=== PATIENT | female | born 1945 | race Caucasian/White ===

== ENCOUNTER → 2016-12-25 | Outpatient (CLI) | payer OTHER ==
[2015-02-04 08:26] VITALS: BP 183/80
--- NOTE | 2016-12-27 10:11 | MG ---
Examination: Bilateral screening mammogram. Clinical history: Routine screening. Technique: Digital CC and MLO views of both breasts were obtained. Computer aided detection analysis was performed and used during the interpretation. Comparison: 10/05/2014. Findings: The breasts are composed of scattered fibroglandular densities. Benign-appearing calcifications and v ascular calcifications are noted in the breasts bilaterally. No suspicious mass, area of architectural distortion or suspicious cluster of microcalcifications is noted. Impression: 1. No mammographic evidence of malignancy. BI-RADS category 2-benign findings. Recommend routine annual screening mammogram. Diagnostic CAD was utilized and reviewed. * 0 (ZERO) - ASSESSMENT INCOMPLETE; ADDITIONAL IMAGING IS NEEDED. * 0C - ASSESSMENT INCOMPLETE, NEEDS ADDITIONAL IMAGING EVALUATION AND/OR PRIOR MAMMOGRAMS FOR COMPARI SON. * 1/1 (ONE) - NEGATIVE. * 2/II (TWO) - BENIGN FINDINGS. * 3/III (THREE) - PROBABLY BENIGN FINDING; SHORT INTERVAL FOLLOW-UP SUGGESTED. * 4/IV (FOUR) - SUSPICIOUS ABNORMALITY; BIOPSY SHOULD BE CONSIDERED. * 5/V - HIGHLY SUSPICIOUS OF MALIGNANCY; BIOPSY SHOULD BE PERFORMED. * 6/IV - KNOWN BIOPSY PROVEN MALIGNANCY-APPROPRIATE ACTION SHOULD BE TAKEN. A NEGATIVE X-RAY REPORT SHOULD NOT DELAY BIOPSY IF A DOMINANT OR CLINICALLY SUSPICIOUS MASS IS PRESENT; 4 TO 8 PERCENT OF CANCERS ARE NOT IDENTIFIED BY X-RAY. A NEGATIVE REPORT MAY REINFORCE THE CLINICAL IMPRESSION. ADENOSIS AND DENSE BREASTS MAY OBSCURE AN UNDERLYING NEOPLASM. Reported By:
== END ==
LOC: RAD 16:21
PROVIDERS: ATTEND Nurse Practitioner Family
DX: Z12.31 Encounter for screening mammogram for malignant neoplasm of breast (principal); Z00.00 Encounter for general adult medical examination without abnormal findings
CPT/HCPCS: 77067

== ENCOUNTER → 2017-01-15 | Outpatient (CLI) | payer OTHER ==
[2015-02-04 08:26] VITALS: BP 183/80
[2017-01-15 16:46] LABS: BILIRUBIN,URINE NEGATIVE (NEGATIVE); BLOOD/HEMOGLOBIN,URINE NEGATIVE (NEGATIVE); GLUCOSE, URINE NEGATIVE (NEGATIVE); KETONES,URINE NEGATIVE (NEGATIVE); LEUKOCYTE ESTERASE ,URINE NEGATIVE (NEGATIVE); NITRITES,URINE NEGATIVE (NEGATIVE); PROTEIN,URINE NEGATIVE (NEGATIVE); UROBILINOGEN,URINE NORMAL (NORMAL)
[2017-01-15 16:47] LABS: BASOPHILS % (AUTO) 0.6 % (0.2-1.0); EOSINOPHILS # (AUTO) 0.5 x10^3/uL (0.0-0.2); EOSINOPHILS % (AUTO) 6.6 % (0.9-2.9); HEMATOCRIT 36.9 % (36.0-47.0); HEMOGLOBIN 12.4 g/dL (12.0-16.0); LYMPHOCYTES # (AUTO) 1.9 X10^3/uL (1.3-2.9); LYMPHOCYTES % (AUTO) 26.8 % (21.0-51.0); MEAN CORPUSCULAR HGB CONC 33.7 g/dL (33.0-35.0); MEAN CORPUSCULAR VOLUME 89.2 fL (80.0-100.0); MEAN PLATELET VOLUME 9.5 fL (7.4-11.0); MONOCYTES # (AUTO) 0.5 x10^3/uL (0.3-0.8); MONOCYTES % (AUTO) 6.5 % (0.0-13.0); NEUTROPHILS # (AUTO) 4.3 x10^3/uL (2.2-4.8); NEUTROPHILS % (AUTO) 59.5 % (42.0-75.0); PLATELET COUNT 171 X10^3/uL (150.0-450.0); RED BLOOD COUNT 4.14 X10^6/uL (3.5-5.4); RED CELL DISTRIBUTION WIDTH 13.1 % (11.6-16.5); WHITE BLOOD COUNT 7.2 X10^3/uL (3.6-10.0)
[2017-01-15 17:03] LABS: ALANINE AMINOTRANSFERASE 27 Units/L (12-78); ALKALINE PHOSPHATASE 91 Units/L (46-116); ASPARTATE AMINO TRANSFERASE 41 Units/L (15-37); BLOOD UREA NITROGEN 22 mg/dL (7-18); CALCIUM 9.1 mg/dL (8.5-10.1); CARBON DIOXIDE 25.9 mmol/L (21-32); CHLORIDE 105 mmol/L (98-107); CREATININE 1.31 mg/dL (0.55-1.02); SODIUM 141 mmol/L (136-145); TOTAL PROTEIN 7.9 g/dL (6.4-8.2); eGFR BLACK RACES 52 (>60); eGFR NON BLACK RACES 43 (>60)
[2017-01-15 17:16] LABS: APPEARANCE,URINE CLEAR (CLEAR); BACTERIA,URINE NEGATIVE /HPF (NEGATIVE); COLOR,URINE YELLOW (YELLOW); RBC,URINE NEGATIVE /HPF (NEGATIVE); SQUAMOUS EPITHELIAL CELL,UR FEW /HPF (NEGATIVE)
[2017-01-15 17:27] LABS: ERYTHROCYTE SEDIMENTATION RATE 82 MM/HOUR (0-20)
== END ==
LOC: LAB 16:13
PROVIDERS: ATTEND Nurse Practitioner Family
DX: N95.1 Menopausal and female climacteric states (principal); M32.8 Other forms of systemic lupus erythematosus; D68.59 Other primary thrombophilia; R63.4 Abnormal weight loss; J43.1 Panlobular emphysema; G90.4 Autonomic dysreflexia
CPT/HCPCS: 36415; 80053; 81001; 85025; 85652; 86140; 86160; 86225; 86256

== ENCOUNTER → 2017-03-16 | Outpatient (CLI) | payer OTHER ==
[2015-02-04 08:26] VITALS: BP 183/80
--- NOTE | 2017-03-16 09:55 | CT ---
HISTORY: Low back pain. Bilateral flank pain. Status post fall 2 weeks prior. Study: Computed tomography of the abdomen and pelvis: Multiple axial images were obtained throughou t the abdomen and pelvis. Intravascular contrast was not administered. Oral contrast was not admini stered. Radiation dose reduction techniques utilized. Comparison: Acute abdominal series 1213 2016 Findings: The lung bases are clear. No evidence of pleural effusions, parenchymal infiltrates or pulmonary nod ules are identified. Very minimal scarring is noted. The heart size is normal. Minimal pericardial thickening or effusion is noted. A small hepatic granuloma is noted in the right lobe. No other focal lesions are identified. The ga llbladder is minimally distended. I see no calcified gallstones. No appreciable biliary duct dilata tion is noted. The pancreas is normal in its appearance. The spleen is normal in its appearance. M inimal thickening of the adrenal glands are noted. No discrete nodule is identified. The right kidn ey is normal in its appearance. The left kidney is normal in its appearance. Following the course o f the ureters I see no evidence of ureteral dilatation or ureteral calculi. Moderate atherosclerotic changes noted in the proximal abdominal aorta. No evidence of retroperitoneal lymph node enlargemen t is identified. [id number] atherosclerotic changes present in the common iliac arteries. The se patient status post hysterectomy. There is a small cyst in the right ovary measuring approximatel y 11 mm in maximum dimension. Periodic follow-up is recommended. No adnexal masses are identified. No evidence of pelvic adenopathy is identified. The urinary bladder is normal in its appearance. The stomach is normal in its appearance. The small bowel is non distended. No evidence of mesenteri c adenopathy is identified. The terminal ileum is normal. The appendix is normal in its appearance. A small to moderate amount of stool is noted in the ascending colon. The transverse colon is moder ately redundant. A few diverticula are present extending from the transverse colon. Scattered diver ticula present extending from the descending colon. Numerous diverticular extend from the sigmoid co zac. I see no evidence of diverticulitis. The region of the rectum is normal. No ascites is noted. The examination of the bone windows of demonstrates a grade 1 spondylolisthesis of L4 on L5. Minimal disc space narrowing is noted at L4/L5 and L5/S1. Minimal vacuum disc formation is noted at L1/L2. Mild anterior spurring is present at a few levels. Minimal degenerative changes present within the hips. IMPRESSION: 1. Diverticulosis without evidence of diverticulitis. 2. Mild distention of the gallbladder. I see no evidence of calcified gallstones or CT evidence of cholecystitis. If there is pain referable to the gallbladder, gallbladder ultrasound may be of lissy tance. 3. Small right ovarian cyst. Periodic follow-up is recommended. Reported By:
--- NOTE | 2017-03-16 11:43 | CT ---
LUMBAR SPINE CT WITHOUT IV CONTRAST CLINICAL INDICATION: Fall 2 weeks ago with back pain TECHNIQUE: Multiple-row detector helical CT examination of the lumbar spine. Axial, sagittal, and cor onal reconstructed images. Dose reduction techniques including Automated Exposure Control (AEC) and a djustment of mA and kV were utlized. COMPARISON: Same day CT abdomen pelvis which includes the lumbar spine. FINDINGS: Grade 1 anterolisthesis of L4 on L5 and L5 on S1 secondary to degenerative facet disease and possible partial pars defect on the left L5. No acute fractures. Vertebral body heights are maintained. No ag gressive osseous lesions are identified. Moderate multilevel degenerative disc disease particularly a t L4-5 and L5-S1. There is likely at least some mild central stenosis at L4-5 and L5-S1. IMPRESSION: 1. No acute abnormality of the lumbar spine. 2. Multilevel degenerative changes as detailed above. Reported By:
== END ==
LOC: RAD 08:33
PROVIDERS: ATTEND Nurse Practitioner Family
DX: M51.36 Other intervertebral disc degeneration, lumbar region (principal); R10.84 Generalized abdominal pain
CPT/HCPCS: 72131; 74176

== ENCOUNTER 2017-11-11 17:36 | Inpatient (IN) ==
[2017-11-11] MEDS ORDERED: NS 1000 ML 1,000 ML IV ONE (17:44)
[2017-11-11] MEDS ORDERED: NS 1000 ML 1,000 ML ONE ×2 (17:52→19:36)
--- NOTE | 2017-11-11 17:52 | DR.GENAD ---
HPI Time Seen Time Seen by Provider: 11/11/17 17:40 HPI Comment HPI Comment: General weakness, diarrhea with dark stool. Chronic SOB that is O2 dependent. She has no c/p or palpitations. She was seen here yesterday for same and was treated and released. Nurses notes reviewed Nurses Notes Review: Yes Source History Provided: Patient and Family Member PMH PMH Past Medical History: Anxiety and COPD Past Surgical History: Yes Surgical History: Hysterectomy Family History Family Medical History: [place], Coronary Artery Disease and Hypertension Social History Do you use any recreational Drugs:: No ROS Review of Systems Constitutional: Weakness Eyes: No Symptoms Reported ENTM: No Symptoms Reported Respiratoy: No Symptoms Reported Cardiovascular: No Symptoms Reported Gastrointestinal/Abdominal: Other (dark stool) Genitourinary: No Symptoms Reported Neurological: No Symptoms Reported Musculoskeletal: No Symptoms Reported Integumentary: No Symptoms Reported Hematologic/Lymphatic: No Symptoms Reported Endocrine: No Symptoms Reported Psychiatric: No Symptoms Reported All Other Systems: Reviewed and Negative PE Vital Signs Vitals: Temperature 98.4 F Pulse Rate [Left Brachial] 83 Pulse Rate 93 Respiratory Rate 18 Blood Pressure [Left Arm] 120/90 Blood Pressure [Right Arm] 115/76 Blood Pressure 138/65 O2 Sat by Pulse Oximetry 100 General Limitations: No Limitations General Appearance: Alert, Cachectic and Other (chronically ill appearing.) Head Head Exam: Normal Inspection, Atraumatic and Normocephalic Eyes Eye exam: Normal Appearance, PERRL and EOMI ENT ENT Exam: Normal Exam and Normal Oropharynx Neck Neck Exam: Normal Inspection, Full ROM and Trachea Midline Chest Chest Inspection: Normal Inspection and Symmetric Chest Wall Rise Respiratory Respiratory Exam: Normal Lung Sounds Bilat Cardiovascular Cardiovascular Exam: Regular Rate, Normal Rhythm, +S1 and +S2 Abdominal Exam Abdominal Exam: Normal Inspection, Normal Bowel Sounds and Soft Extremities Extremities Exam: Normal Inspection and Full ROM Back Back Exam: Normal Inspection Neurologic Neurological Exam: Alert Psychiatric Psychiatric Exam: Normal Affect and Normal Mood Skin Skin Exam: Warm and Dry COURSE Reevaluation 1st: Unchanged Consultation Consultation Comments: Her presentation, findings and diagnostics were discussed with Dr. Victor, who agrees with the request. Education/Counseling Education/Counseling: Patient, Family, Education and Counseling Educated On: Treatment, Diagnosis, Prognosis and Needs for Follow Up ROR Labs Reviewed Result Diagrams: 11/11/17 18:00 11/11/17 18:00 Laboratory: WBC 12.8 X10^3/uL (3.6-10.0) H 11/11/17 18:00 RBC 2.43 X10^6/uL (3.5-5.4) L 11/11/17 18:00 Hgb 7.5 g/dL (12.0-16.0) L 11/11/17 18:00 Hct 21.8 % (36.0-47.0) L 11/11/17 18:00 MCV 89.8 fL (80.0-100.0) 11/11/17 18:00 MCH 31.1 pg (27.0-34.0) 11/11/17 18:00 MCHC 34.6 g/dL (33.0-35.0) 11/11/17 18:00 RDW 13.3 % (11.6-16.5) 11/11/17 18:00 Plt Count 174 X10^3/uL (150.0-450.0) 11/11/17 18:00 Plt Count Comment Adequate (ADEQUATE) 11/11/17 18:00 MPV 9.6 fL (7.4-11.0) 11/11/17 18:00 Neut % (Auto) 82.5 % (42.0-75.0) H 11/11/17 18:00 Lymph % (Auto) 10.6 % (21.0-51.0) L 11/11/17 18:00 [place] % (Auto) 5.1 % (0.0-13.0) 11/11/17 18:00 Eos % (Auto) 0.9 % (0.9-2.9) 11/11/17 18:00 Baso % (Auto) 0.9 % (0.2-1.0) 11/11/17 18:00 Neut # (Auto) 10.5 x10^3/uL (2.2-4.8) H 11/11/17 18:00 Lymph # (Auto) 1.4 X10^3/uL (1.3-2.9) 11/11/17 18:00 [place] # (Auto) 0.6 x10^3/uL (0.3-0.8) 11/11/17 18:00 Eos # (Auto) 0.1 x10^3/uL (0.0-0.2) 11/11/17 18:00 Baso # (Auto) 0.1 X10^3/uL (0.0-0.1) 11/11/17 18:00 Absolute Nucleated RBC 0.0 /100WBC 11/11/17 18:00 Plt Morphology Comment Normal (NORMAL) 11/11/17 18:00 RBC Morphology Normal (NORMAL) 11/11/17 18:00 Sodium 142 mmol/L (136-145) 11/11/17 18:00 Corrected Sodium 143 mmol/L (136-145) 11/11/17 18:00 Potassium 4.2 mmol/L (3.5-5.1) 11/11/17 18:00 Chloride 108 mmol/L (98-107) H 11/11/17 18:00 Carbon Dioxide 25.0 mmol/L (21-32) 11/11/17 18:00 BUN 63 mg/dL (7-18) H 11/11/17 18:00 Creatinine 1.24 mg/dL (0.55-1.02) H 11/11/17 18:00 Est GFR (MDRD) Af Amer 55 (>60) L 11/11/17 18:00 Est GFR (MDRD) Non-Af 45 (>60) L 11/11/17 18:00 Glucose 147 mg/dL (65-99) H 11/11/17 18:00 Calcium 8.2 mg/dL (8.5-10.1) L 11/11/17 18:00 Corrected Calcium 8.8 mg/dL (8.5-10.1) 11/11/17 18:00 Total Bilirubin 0.20 mg/dL (0.2-1.0) 11/11/17 18:00 AST 25 Units/L (15-37) 11/11/17 18:00 ALT 23 Units/L (12-78) 11/11/17 18:00 Alkaline Phosphatase 49 Units/L (46-116) 11/11/17 18:00 Total Protein 6.3 g/dL (6.4-8.2) L 11/11/17 18:00 Albumin 3.2 g/dL (3.4-5.0) L 11/11/17 18:00 Globulin 3.1 g/dL (2.5-4.5) 11/11/17 18:00 Albumin/Globulin Ratio 1.0 Ratio (1.1-2.1) L 11/11/17 18:00 TSH 3rd Generation 1.468 uIU/mL (0.358-3.74) 11/11/17 18:00 Stool Description Fob tube 11/11/17 18:10 Stl Occult Blood (IFOB) Positive (NEGATIVE) A 11/11/17 18:10 XRAY XRAY Interpreted by: Radiologist XRAY Findings: Abdomen: no acute disease Diagnosis Discharge Problem: Hematochezia, Weakness, Anemia due to blood loss
[2017-11-11 18:07] LABS: BASOPHILS # (AUTO) 0.1 X10^3/uL (0.0-0.1); BASOPHILS % (AUTO) 0.9 % (0.2-1.0); EOSINOPHILS # (AUTO) 0.1 x10^3/uL (0.0-0.2); EOSINOPHILS % (AUTO) 0.9 % (0.9-2.9); HEMATOCRIT 21.8 % (36.0-47.0); HEMOGLOBIN 7.5 g/dL (12.0-16.0); LYMPHOCYTES # (AUTO) 1.4 X10^3/uL (1.3-2.9); LYMPHOCYTES % (AUTO) 10.6 % (21.0-51.0); MEAN CORPUSCULAR HEMOGLOBIN 31.1 pg (27.0-34.0); MEAN CORPUSCULAR HGB CONC 34.6 g/dL (33.0-35.0); MEAN CORPUSCULAR VOLUME 89.8 fL (80.0-100.0); MEAN PLATELET VOLUME 9.6 fL (7.4-11.0); MONOCYTES # (AUTO) 0.6 x10^3/uL (0.3-0.8); MONOCYTES % (AUTO) 5.1 % (0.0-13.0); NEUTROPHILS # (AUTO) 10.5 x10^3/uL (2.2-4.8); NEUTROPHILS % (AUTO) 82.5 % (42.0-75.0); PLATELET COUNT 174 X10^3/uL (150.0-450.0); RED BLOOD COUNT 2.43 X10^6/uL (3.5-5.4); RED CELL DISTRIBUTION WIDTH 13.3 % (11.6-16.5); WHITE BLOOD COUNT 12.8 X10^3/uL (3.6-10.0)
[2017-11-11 18:14] LABS: PLATELET MORPHOLOGY COMMENT NORMAL (NORMAL)
[2017-11-11 18:28] LABS: ALBUMIN 3.2 g/dL (3.4-5.0); CALCIUM 8.2 mg/dL (8.5-10.1); COR CA(FOR HYPOALB) 8.8 mg/dL (8.5-10.1); CREATININE 1.24 mg/dL (0.55-1.02); TOTAL PROTEIN 6.3 g/dL (6.4-8.2); TSH (3RD GENERATION) 1.468 uIU/mL (0.358-3.74)
[2017-11-11] MEDS ORDERED: NS 1000 ML 1,000 ML IV SCH (20:00)
[2017-11-11] MEDS: NS 1000 ML 1,000 ML IV SCH (20:35)
[2017-11-11 21:09] VITALS: BMI 21.2
[2017-11-11] MEDS ORDERED: NS 250 ML IV 250 ML IV ONE (23:09)
[2017-11-11] MEDS: NS 250 ML IV 250 ML IV SCH (23:15)
[2017-11-12] MEDS: NS 1000 ML 1,000 ML IV SCH ×4 (04:36→20:33)
[2017-11-12] MEDS ORDERED: PATIENT'S HOME MEDICATION (Fluticasone-Salmeterol 1 PUFF) INH SCH (09:00)
[2017-11-12] MEDS ORDERED: MAGNESIUM PO SCH (09:00)
[2017-11-12] MEDS ORDERED: SERTRALINE HCL 50 MG PO SCH (09:00)
[2017-11-12 09:04] LABS: BASOPHILS # (AUTO) 0.1 X10^3/uL (0.0-0.1); EOSINOPHILS # (AUTO) 0.2 x10^3/uL (0.0-0.2); HEMATOCRIT 23.6 % (36.0-47.0); HEMOGLOBIN 8.5 g/dL (12.0-16.0); LYMPHOCYTES % (AUTO) 22.2 % (21.0-51.0); MEAN CORPUSCULAR HEMOGLOBIN 31.3 pg (27.0-34.0); MEAN CORPUSCULAR HGB CONC 36.3 g/dL (33.0-35.0); MEAN CORPUSCULAR VOLUME 86.1 fL (80.0-100.0); MEAN PLATELET VOLUME 9.5 fL (7.4-11.0); MONOCYTES # (AUTO) 0.6 x10^3/uL (0.3-0.8); NEUTROPHILS # (AUTO) 6.2 x10^3/uL (2.2-4.8); NEUTROPHILS % (AUTO) 67.8 % (42.0-75.0); PLATELET COUNT 104 X10^3/uL (150.0-450.0); RED BLOOD COUNT 2.73 X10^6/uL (3.5-5.4); RED CELL DISTRIBUTION WIDTH 13.6 % (11.6-16.5); WHITE BLOOD COUNT 9.1 X10^3/uL (3.6-10.0)
[2017-11-12] MEDS: ZOLOFT PO SCH (09:22)
[2017-11-12] MEDS: MAG-OX TAB PO SCH (09:22)
[2017-11-12] MEDS: PROTONIX INJ 40 MG VIAL IVP SCH ×2 (09:23→20:33)
[2017-11-12 09:39] LABS: ALANINE AMINOTRANSFERASE 18 Units/L (12-78); ALBUMIN 2.5 g/dL (3.4-5.0); ALKALINE PHOSPHATASE 34 Units/L (46-116); ASPARTATE AMINO TRANSFERASE 23 Units/L (15-37); BLOOD UREA NITROGEN 54 mg/dL (7-18); CALCIUM 7.5 mg/dL (8.5-10.1); CARBON DIOXIDE 23.6 mmol/L (21-32); CHLORIDE 112 mmol/L (98-107); COR CA(FOR HYPOALB) 8.7 mg/dL (8.5-10.1); CREATININE 0.87 mg/dL (0.55-1.02); SODIUM 143 mmol/L (136-145); eGFR NON BLACK RACES > 60 (>60)
[2017-11-12] MEDS: NS 250 ML IV 250 ML IV SCH (12:38)
--- NOTE | 2017-11-12 13:08 | DR.H&P ---
H&P - History & Physical for Day of: H&P Date: 11/11/17 - Chief Complaint Chief Complaint: WEAKNESS, DIARRHEA, BLACK STOOL - History of Present Illness History of Present Illness: 72 WF ER ADMISSION AFTER PRESENTING CO SEVERE WEAKNESS, CO SEEN IN ER DAY PRIOR TO CO NAUSEA AND UPSET STOMACH, LOODSE BLACK STOOL. PT STATES SHE STARTED SUNDAY NIGHT WITH NAUSEA AND UPSET STOMACH, WORSENED OVER NEXT 2DAYS, INCREASED BACK TARRY STOOL. PT TAKES COUMADIN FOR HX BLOOD CLOTS, HAS LUPUS, HTN, OA, COPD WITH O2 USE. PT REPORTS HAS INR LESS THEN 3. PT STATES LAST COLONOSCOPY PER DR YOUNG 2-3 YEARS AGO. PT HBG 7.5 ON ADMISSION, PT ADMITTED TO ICU, TRANSFUSED 2 UNITS PRBC. - Past Medical History Past Medical History: Anxiety, Arthritis, Asthma, COPD Additional Medical History: LUPUS - Past Surgical History Surgical History: Hysterectomy, Tonsillectomy - Family History Family Medical History: Diabetes Mellitus, Cancer, [place], Coronary Artery Disease - Social History Does patient currently use any type of tobacco product: Yes Have you used tobacco products in the last 12 months: Yes Type of Tobacco Use: Cigarettes How many years tobacco product used: 30 Does any household member use tobacco: No Alcohol Use: None Drug Use: None - Medications Home Medications: egg Allergy (Verified 11/10/17 20:51) FLU VIRUS VACCINE Allergy (Uncoded 11/10/17 20:51) CONTINUE taking the following medications albuterol sulfate 1 puff INHALATION BID PRN 11/12/17 [History] bisoprolol-hydrochlorothiazide 1 tab PO DAILY 11/12/17 [History] hydrocodone-acetaminophen 1 tab PO QID PRN 11/12/17 [History] medroxyprogesterone 2.5 mg PO DAILY 11/12/17 [History] - Review of Systems Constitutional: Weakness Eyes: No Symptoms Reported ENT: No Symptoms Reported Respiratory: Shortness of Breath Cardiovascular: Palpitations. denies: Edema Gastrointestinal: Nausea, Abdominal Pain, Diarrhea, Hematochezia Genitourinary: No Symptoms Reported Skin: No Symptoms Reported Neurological: Weakness - Physical Exam Vital Signs: Temperature 98.2 F Pulse Rate [Apical] 82 Pulse Rate [Left Brachial] 83 Pulse Rate 93 Respiratory Rate 17 Blood Pressure [Left Arm] 120/90 Blood Pressure [Right Arm] 117/55 Blood Pressure 138/65 O2 Sat by Pulse Oximetry 100 Oriented: Normal Eyes: Normal Ear: Normal Nose: Normal Throat: Normal Respiratory: Diminished Throughout Cardiovascular: Normal : Normal Auscultation: Bowel Sounds: Increased Tenderness: Epigastric Skin: Decreased Turgur Musculoskeletal: Back:Thoracic Psychiatric: Anxiety Mood Description: Calm Affect: Anxious Speech Pattern: Clear, Appropriate - Assessment/Plan (1) Lower GI bleed Status: Acute Plan: ADMIT ICU, TRANSFUSE PRBC X 2. MONITOR I& OS, H&H. HOLD NSAIDS AND COUMADIN. BP MONITORING, SUPPLEMENTAL O2. 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
[2017-11-12] MEDS ORDERED: AQUA-MEPHYTON ADULT INJ SC ONE (13:14)
--- NOTE | 2017-11-12 13:14 | PCM.PROG ---
Progress Note - Progress Note for Day of Date of Exam: 11/12/17 - Subjective Subjective: 72 WF ER ADMISSION ON 11/11 WITH CO WEAKNESS, DIARRHEA, BLACK TARRY STOOL. PT WAS ANEMIA ON ARRIVAL TO ER WITH POSITIVE OCCULT STOOL, PT S/P 2 UNITS PRBC, HGB 8.5 THIS AM. PT STATES SHE STARTED TO FEEL BETTER AFTER GETTING BLOOD THIS AM. PT HAS COPD CURRENTLY ON SUPPLEMENTAL O2. PT/INR, UA, STOOL STUDIES ORDERED THIS AM. HOLDING NSAIDS, COUMADIN, CONSULT IRFAN, REVIEWED HOME MEDS, ICE CHIPS, PROTONIX 40MG IV BID. - Past Medical Family Social History Past Med/Fam/Surg Hx: No changes since H&P Allergies: Allergies egg Allergy (Verified 11/10/17 20:51) FLU VIRUS VACCINE Allergy (Uncoded 11/10/17 20:51) - Review of Systems ROS: No change since H&P - Vital Signs and I&O's Vital Signs: Temperature 98.2 F Pulse Rate [Apical] 82 Pulse Rate [Left Brachial] 83 Pulse Rate 93 Respiratory Rate 17 Blood Pressure [Left Arm] 120/90 Blood Pressure [Right Arm] 117/55 Blood Pressure 138/65 O2 Sat by Pulse Oximetry 100 Intake and Output: Intake & Output 11/10/17 11/11/17 11/12/17 11/13/17 11:59 11:59 11:59 11:59 Intake Total 1165 / 1165 1135 / 1135 Balance 1165 / 1165 1135 / 1135 - Physical Exam Oriented: Normal Eyes: Normal Ear: Normal Nose: Normal Throat: Normal Respiratory: Diminished Cardiovascular: Normal : Normal Auscultation: Bowel Sounds: Increased Tenderness: Epigastric Skin: Decreased Turgur Musculoskeletal: Back:Thoracic Psychiatric: Anxiety Mood Description: Calm Affect: Anxious Speech Pattern: Clear, Appropriate - Laboratory and Diagnostics Result Diagrams: 11/12/17 08:38 11/12/17 08:38 Labs: Laboratory WBC 9.1 X10^3/uL (3.6-10.0) 11/12/17 08:38 RBC 2.73 X10^6/uL (3.5-5.4) L 11/12/17 08:38 Hgb 8.5 g/dL (12.0-16.0) L 11/12/17 08:38 Hct 23.6 % (36.0-47.0) L 11/12/17 08:38 MCV 86.1 fL (80.0-100.0) 11/12/17 08:38 MCH 31.3 pg (27.0-34.0) 11/12/17 08:38 MCHC 36.3 g/dL (33.0-35.0) H 11/12/17 08:38 RDW 13.6 % (11.6-16.5) 11/12/17 08:38 Plt Count 104 X10^3/uL (150.0-450.0) L 11/12/17 08:38 Plt Count Comment Adequate (ADEQUATE) 11/11/17 18:00 MPV 9.5 fL (7.4-11.0) 11/12/17 08:38 Neut % (Auto) 67.8 % (42.0-75.0) 11/12/17 08:38 Lymph % (Auto) 22.2 % (21.0-51.0) 11/12/17 08:38 [place] % (Auto) 7.0 % (0.0-13.0) 11/12/17 08:38 Eos % (Auto) 2.0 % (0.9-2.9) 11/12/17 08:38 Baso % (Auto) 1.0 % (0.2-1.0) 11/12/17 08:38 Neut # (Auto) 6.2 x10^3/uL (2.2-4.8) H 11/12/17 08:38 Lymph # (Auto) 2.0 X10^3/uL (1.3-2.9) 11/12/17 08:38 [place] # (Auto) 0.6 x10^3/uL (0.3-0.8) 11/12/17 08:38 Eos # (Auto) 0.2 x10^3/uL (0.0-0.2) 11/12/17 08:38 Baso # (Auto) 0.1 X10^3/uL (0.0-0.1) 11/12/17 08:38 Absolute Nucleated RBC 0.0 /100WBC 11/12/17 08:38 Plt Morphology Comment Normal (NORMAL) 11/11/17 18:00 RBC Morphology Normal (NORMAL) 11/11/17 18:00 INR Target Range - 11/12/17 08:38 INR 3.75 (0.8-1.3) H 11/12/17 08:38 Sodium 143 mmol/L (136-145) 11/12/17 08:38 Corrected Sodium TNP 11/12/17 08:38 Potassium 3.9 mmol/L (3.5-5.1) 11/12/17 08:38 Chloride 112 mmol/L (98-107) H 11/12/17 08:38 Carbon Dioxide 23.6 mmol/L (21-32) 11/12/17 08:38 BUN 54 mg/dL (7-18) H 11/12/17 08:38 Creatinine 0.87 mg/dL (0.55-1.02) 11/12/17 08:38 Est GFR (MDRD) Af Amer > 60 (>60) 11/12/17 08:38 Est GFR (MDRD) Non-Af > 60 (>60) 11/12/17 08:38 Glucose 94 mg/dL (65-99) 11/12/17 08:38 Calcium 7.5 mg/dL (8.5-10.1) L 11/12/17 08:38 Corrected Calcium 8.7 mg/dL (8.5-10.1) 11/12/17 08:38 Total Bilirubin 0.50 mg/dL (0.2-1.0) 11/12/17 08:38 AST 23 Units/L (15-37) 11/12/17 08:38 ALT 18 Units/L (12-78) 11/12/17 08:38 Alkaline Phosphatase 34 Units/L (46-116) L 11/12/17 08:38 Total Protein 5.0 g/dL (6.4-8.2) L 11/12/17 08:38 Albumin 2.5 g/dL (3.4-5.0) L 11/12/17 08:38 Globulin 2.5 g/dL (2.5-4.5) 11/12/17 08:38 Albumin/Globulin Ratio 1.0 Ratio (1.1-2.1) L 11/12/17 08:38 TSH 3rd Generation 1.468 uIU/mL (0.358-3.74) 11/11/17 18:00 Stool Description Fob tube 11/11/17 18:10 Stl Occult Blood (IFOB) Positive (NEGATIVE) A 11/11/17 18:10 Blood Type B POSITIVE 11/11/17 20:55 Antibody Screen Negative 11/11/17 20:55 Crossmatch See Detail 11/11/17 20:55 - Plan (1) Lower GI bleed Status: Acute Plan: S/PTRANSFUSE PRBC X 2. MONITOR I& OS, H&H. HOLD NSAIDS AND COUMADIN, PT/ INR. BP MONITORING, SUPPLEMENTAL O2. RESP THERAPY, OCCULT STOOL STOOL STUDIES. CONSULT DR YOUNG, PROTONIX IV, FLAGYL IV. 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
[2017-11-12] MEDS: FLAGYL IV PREMIX 500 MG BAG 500 MG/100 ML BAG IV SCH ×3 (13:46→20:33)
[2017-11-12] MEDS: PROVERA PO SCH (13:51)
[2017-11-12] MEDS: FOLIC ACID TAB 1 MG PO SCH (13:51)
--- NOTE | 2017-11-12 13:52 | RAD ---
History: Shortness of breath and abdominal pain Study: Portable AP chest Comparison: February 04, 2015 Findings: The lungs are hyperinflated as before and grossly clear. There is no edema or effusion. Hea rt size is normal. Impression: Unchanged hyperinflation suggestive of COPD. No definite acute disease demonstrated. Reported By:
[2017-11-12] MEDS: PULMICORT NEB TX 0.5 MG NEB SCH ×2 (16:11→20:29)
[2017-11-12] MEDS: PROVENTIL NEB TX 0.083% 2.5MG/ 3ML NEB SCH ×3 (16:11→20:28)
[2017-11-12 16:45] LABS: CRYPTOSPORIDIUM PARVUM ANTIGEN POSITIVE (NEGATIVE); GIARDIA LAMBLIA ANTIGEN POSITIVE (NEGATIVE); STOOL FOR WBC POSITIVE (NEGATIVE)
--- NOTE | 2017-11-12 17:45 | DR.CONSULT ---
Consult - Consultation for Day of: Date: 11/12/17 - Chief Complaint Chief Complaint: Patient referred for hemoccult positive. Patient with complaints of melena, nausea, and diarrhea. - History of Present Illness History of Present Illness: Patient is a 72yo was referred for positive hemoccult. Patient with complaints of nausea which is improving stated she had broth and tolerated it well, She states she vomited on sunday but has not anymor e since, she has been having melena for 5 days and diarrhea since Sunday, she also states that she does have trouble swallowing at time but is a chronic problem. She denies dyspepsia, abdominal pain, constipation and hematochezia. Last colon was 12/2008 which showed sigmoid diverticulosis and internal hemorrhoids. Last EGD was 11/2008 which showed distal esophagitis and antral gastritis. Hgb on arrival was 7.5 after 2 untis of PRBC is up to 8.5, Hct 23.6 up from 21.8. Hemoccult positive. Patient is also on coumadin which was stopped yesterday. Stool studies are pending at this time. - Past Medical History Past Medical History: Anxiety, Arthritis, Asthma, COPD Additional Medical History: LUPUS - Past Surgical History Surgical History: Hysterectomy, Tonsillectomy - Family History Family Medical History: Diabetes Mellitus, Cancer, [place], Coronary Artery Disease - Social History Does patient currently use any type of tobacco product: Yes Have you used tobacco products in the last 12 months: Yes Type of Tobacco Use: Cigarettes How many years tobacco product used: 30 Does any household member use tobacco: No Alcohol Use: None Drug Use: None - Medications Home Medications: egg Allergy (Verified 11/10/17 20:51) FLU VIRUS VACCINE Allergy (Uncoded 11/10/17 20:51) CONTINUE taking the following medications albuterol sulfate 1 puff INHALATION BID PRN 11/12/17 [History] bisoprolol-hydrochlorothiazide 1 tab PO DAILY 11/12/17 [History] hydrocodone-acetaminophen 1 tab PO QID PRN 11/12/17 [History] medroxyprogesterone 2.5 mg PO DAILY 11/12/17 [History] - Review of Systems Gastrointestinal: See HPI, Nausea, Diarrhea, Melena, Other (dysphagia). denies: Vomiting, Abdominal Pain, Constipation, Hematochezia - Physical Exam Vital Signs: Temperature 97.4 F Pulse Rate [Apical] 94 Pulse Rate [Left Brachial] 83 Pulse Rate 92 Respiratory Rate 20 Blood Pressure [Left Arm] 120/90 Blood Pressure [Right Arm] 134/59 Blood Pressure 138/65 O2 Sat by Pulse Oximetry 100 Oriented: Time, Person, Place Eyes: Normal Ear: Normal Nose: Normal Throat: Normal Respiratory: Clear Throughout Cardiovascular: Normal : Normal Auscultation: Bowel Sounds: Normal Palpation: Normal, Other (no distention). negative: Spleen Enlarged, Liver Enlarged, Mass Pulsatile Tenderness: Normal (no tenderness on palpitation) Skin: Normal Musculoskeletal: Normal Psychiatric: Normal Mood Description: Calm Affect: Normal Speech Pattern: Clear, Appropriate - Plan Plan: Assessment. 1. Anemia, Hemoccult positive, Melena r/o gastric ulcer, gastric adenocarcinoma, upper GI Bleed. 2. Diarrhea. Plan. 1. Monitor Hgb, transfuse as needed, Cont protonix IV , EGD tomorrow. 2. Stool studies pending. Plan reviewed with Dr. Sandoval - Allergies Allergies/Adverse Reactions: Allergies Allergy/AdvReac Type Severity Reaction Status Date / Time egg Allergy Verified 11/10/17 20:51 FLU VIRUS VACCINE Allergy Uncoded 11/10/17 20:51
[2017-11-12] MEDS ORDERED: CONSULT PHARMACY - ANTIBIOTIC XX SCH (18:00)
[2017-11-12 18:21] LABS: BILIRUBIN,URINE NEGATIVE (NEGATIVE); BLOOD/HEMOGLOBIN,URINE NEGATIVE (NEGATIVE); GLUCOSE, URINE NEGATIVE (NEGATIVE); KETONES,URINE NEGATIVE (NEGATIVE); LEUKOCYTE ESTERASE ,URINE 1+ (NEGATIVE); NITRITES,URINE NEGATIVE (NEGATIVE); PROTEIN,URINE NEGATIVE (NEGATIVE); UROBILINOGEN,URINE NORMAL (NORMAL)
[2017-11-12 18:28] LABS: APPEARANCE,URINE CLEAR (CLEAR); BACTERIA,URINE TRACE /HPF (NEGATIVE); COLOR,URINE YELLOW (YELLOW); RBC,URINE 0-2 /HPF (NONE SEEN); SQUAMOUS EPITHELIAL CELL,UR FEW /HPF (NEGATIVE)
[2017-11-13] MEDS: NS 250 ML IV 250 ML IV SCH ×2 (01:39→14:38)
[2017-11-13] MEDS: FLAGYL IV PREMIX 500 MG BAG 500 MG/100 ML BAG IV SCH ×5 (03:18→14:37)
[2017-11-13] MEDS: NS 1000 ML 1,000 ML IV SCH ×3 (04:17→20:26)
[2017-11-13 05:07] LABS: BASOPHILS % (AUTO) 0.7 % (0.2-1.0); EOSINOPHILS # (AUTO) 0.3 x10^3/uL (0.0-0.2); LYMPHOCYTES # (AUTO) 1.6 X10^3/uL (1.3-2.9); LYMPHOCYTES % (AUTO) 24.6 % (21.0-51.0); MEAN CORPUSCULAR HEMOGLOBIN 30.5 pg (27.0-34.0); MEAN CORPUSCULAR HGB CONC 35.3 g/dL (33.0-35.0); MEAN CORPUSCULAR VOLUME 86.5 fL (80.0-100.0); MEAN PLATELET VOLUME 9.6 fL (7.4-11.0); MONOCYTES # (AUTO) 0.5 x10^3/uL (0.3-0.8); MONOCYTES % (AUTO) 8.1 % (0.0-13.0); NEUTROPHILS # (AUTO) 3.9 x10^3/uL (2.2-4.8); NEUTROPHILS % (AUTO) 61.6 % (42.0-75.0); PLATELET COUNT 109 X10^3/uL (150.0-450.0); RED BLOOD COUNT 2.04 X10^6/uL (3.5-5.4); RED CELL DISTRIBUTION WIDTH 13.9 % (11.6-16.5); WHITE BLOOD COUNT 6.4 X10^3/uL (3.6-10.0)
[2017-11-13 05:25] LABS: ALANINE AMINOTRANSFERASE 18 Units/L (12-78); ALBUMIN 2.2 g/dL (3.4-5.0); ALKALINE PHOSPHATASE 33 Units/L (46-116); ASPARTATE AMINO TRANSFERASE 27 Units/L (15-37); BLOOD UREA NITROGEN 38 mg/dL (7-18); CALCIUM 7.2 mg/dL (8.5-10.1); CARBON DIOXIDE 26.2 mmol/L (21-32); CHLORIDE 112 mmol/L (98-107); COR CA(FOR HYPOALB) 8.6 mg/dL (8.5-10.1); CREATININE 0.98 mg/dL (0.55-1.02); SODIUM 143 mmol/L (136-145); TOTAL PROTEIN 4.5 g/dL (6.4-8.2); eGFR NON BLACK RACES 59 (>60)
[2017-11-13 05:36] LABS: HEMATOCRIT 17.6 % (36.0-47.0); HEMOGLOBIN 6.2 g/dL (12.0-16.0)
[2017-11-13] MEDS: NS 500 ML IV 500 ML IV SCH (07:50)
[2017-11-13] MEDS: FOLIC ACID TAB 1 MG PO SCH (08:16)
[2017-11-13] MEDS: ZOLOFT PO SCH (08:16)
[2017-11-13] MEDS: PROVERA PO SCH (08:16)
[2017-11-13] MEDS: MAG-OX TAB PO SCH (08:16)
[2017-11-13] MEDS: PROVENTIL NEB TX 0.083% 2.5MG/ 3ML NEB SCH ×4 (08:50→20:59)
[2017-11-13] MEDS: PULMICORT NEB TX 0.5 MG NEB SCH ×2 (08:50→20:59)
[2017-11-13] MEDS ORDERED: MEDROXYPROGESTERONE 2.5 MG PO SCH (09:00)
[2017-11-13] MEDS ORDERED: PATIENT'S HOME MEDICATION (Folic Acid [Folic Acid] 1 TAB) PO SCH (09:00)
[2017-11-13] MEDS: PROTONIX INJ 40 MG VIAL IVP SCH ×2 (09:42→20:26)
--- NOTE | 2017-11-13 13:52 | PCM.PROG ---
Progress Note - Progress Note for Day of Date of Exam: 11/13/17 - Subjective Subjective: 72 WF ER ADMISSION ON 11/11 WITH CO WEAKNESS, DIARRHEA, BLACK TARRY STOOL. PT WAS ANEMIA ON ARRIVAL TO ER WITH POSITIVE OCCULT STOOL, PT S/P 2 UNITS PRBC, HGB 6.2THIS AM, REPEAT PRBC TRANSFUSION X 2 UNITS THIS AM. PT OCCULT STOOL POSITIVE, CURRENTLY ON PPI, INR ON 917 3.75 HAD VIT K 10MG IM YESTERDAY WITH REPEAT INR 2.68. PT. HOLDING NSAIDS, COUMADIN, CONSULT HANNAH, MAHADO FOR EGD THIS AM. PT STOOL POSITIVE FOR GIARDIA, CURRENTLY ON FLAGYL IV - Past Medical Family Social History Past Med/Fam/Surg Hx: No changes since H&P Allergies: Allergies egg Allergy (Verified 11/10/17 20:51) meperidine [From Demerol] Allergy (Verified 11/12/17 18:20) FLU VIRUS VACCINE Allergy (Uncoded 11/10/17 20:51) - Review of Systems ROS: No change since H&P - Vital Signs and I&O's Vital Signs: Temperature 98.5 F Pulse Rate [Apical] 90 Pulse Rate [Left Brachial] 83 Pulse Rate 88 Respiratory Rate 17 Blood Pressure [Left Arm] 120/90 Blood Pressure [Right Arm] 128/58 Blood Pressure 138/65 O2 Sat by Pulse Oximetry 100 Intake and Output: Intake & Output 11/11/17 11/12/17 11/13/17 11/14/17 11:59 11:59 11:59 11:59 Intake Total 1165 / 1165 2326 / 2326 939 / 939 Balance 1165 / 1165 2326 / 2326 939 / 939 - Physical Exam Oriented: Time, Person, Place Eyes: Normal Ear: Normal Nose: Normal Throat: Normal Respiratory: Diminished Cardiovascular: Normal : Normal Auscultation: Bowel Sounds: Normal Tenderness: Normal (no tenderness on palpitation) Skin: Normal Musculoskeletal: Normal Psychiatric: Normal Mood Description: Calm Affect: Normal Speech Pattern: Clear, Appropriate - Laboratory and Diagnostics Result Diagrams: 11/13/17 04:15 11/13/17 04:15 Labs: 11/12/17 15:16 Stool Stool Culture - Preliminary 11/12/17 15:16 Stool - Final Laboratory WBC 6.4 X10^3/uL (3.6-10.0) 11/13/17 04:15 RBC 2.04 X10^6/uL (3.5-5.4) L 11/13/17 04:15 Hgb 6.2 g/dL (12.0-16.0) L* D 11/13/17 04:15 Hct 17.6 % (36.0-47.0) L* 11/13/17 04:15 MCV 86.5 fL (80.0-100.0) 11/13/17 04:15 MCH 30.5 pg (27.0-34.0) 11/13/17 04:15 MCHC 35.3 g/dL (33.0-35.0) H 11/13/17 04:15 RDW 13.9 % (11.6-16.5) 11/13/17 04:15 Plt Count 109 X10^3/uL (150.0-450.0) L 11/13/17 04:15 Plt Count Comment Adequate (ADEQUATE) 11/11/17 18:00 MPV 9.6 fL (7.4-11.0) 11/13/17 04:15 Neut % (Auto) 61.6 % (42.0-75.0) 11/13/17 04:15 Lymph % (Auto) 24.6 % (21.0-51.0) 11/13/17 04:15 [place] % (Auto) 8.1 % (0.0-13.0) 11/13/17 04:15 Eos % (Auto) 5.0 % (0.9-2.9) H 11/13/17 04:15 Baso % (Auto) 0.7 % (0.2-1.0) 11/13/17 04:15 Neut # (Auto) 3.9 x10^3/uL (2.2-4.8) 11/13/17 04:15 Lymph # (Auto) 1.6 X10^3/uL (1.3-2.9) 11/13/17 04:15 [place] # (Auto) 0.5 x10^3/uL (0.3-0.8) 11/13/17 04:15 Eos # (Auto) 0.3 x10^3/uL (0.0-0.2) H 11/13/17 04:15 Baso # (Auto) 0.0 X10^3/uL (0.0-0.1) 11/13/17 04:15 Absolute Nucleated RBC 0.1 /100WBC 11/13/17 04:15 Plt Morphology Comment Normal (NORMAL) 11/11/17 18:00 RBC Morphology Normal (NORMAL) 11/11/17 18:00 INR Target Range - 11/13/17 04:15 INR 2.68 (0.8-1.3) H 11/13/17 04:15 Sodium 143 mmol/L (136-145) 11/13/17 04:15 Corrected Sodium TNP 11/13/17 04:15 Potassium 4.2 mmol/L (3.5-5.1) 11/13/17 04:15 Chloride 112 mmol/L (98-107) H 11/13/17 04:15 Carbon Dioxide 26.2 mmol/L (21-32) 11/13/17 04:15 BUN 38 mg/dL (7-18) H 11/13/17 04:15 Creatinine 0.98 mg/dL (0.55-1.02) 11/13/17 04:15 Est GFR (MDRD) Af Amer > 60 (>60) 11/13/17 04:15 Est GFR (MDRD) Non-Af 59 (>60) 11/13/17 04:15 Glucose 109 mg/dL (65-99) H 11/13/17 04:15 Calcium 7.2 mg/dL (8.5-10.1) L 11/13/17 04:15 Corrected Calcium 8.6 mg/dL (8.5-10.1) 11/13/17 04:15 Total Bilirubin 0.30 mg/dL (0.2-1.0) 11/13/17 04:15 AST 27 Units/L (15-37) 11/13/17 04:15 ALT 18 Units/L (12-78) 11/13/17 04:15 Alkaline Phosphatase 33 Units/L (46-116) L 11/13/17 04:15 Total Protein 4.5 g/dL (6.4-8.2) L 11/13/17 04:15 Albumin 2.2 g/dL (3.4-5.0) L 11/13/17 04:15 Globulin 2.3 g/dL (2.5-4.5) L 11/13/17 04:15 Albumin/Globulin Ratio 1.0 Ratio (1.1-2.1) L 11/13/17 04:15 TSH 3rd Generation 1.468 uIU/mL (0.358-3.74) 11/11/17 18:00 Specimen Type Random urine 11/12/17 18:07 Urine Color Yellow (YELLOW) 11/12/17 18:07 Urine Appearance Clear (CLEAR) 11/12/17 18:07 Urine pH 6.0 (5.0 - 8.0) 11/12/17 18:07 Ur Specific [place] 1.010 (1.000-1.030) 11/12/17 18:07 Urine Protein Negative (NEGATIVE) 11/12/17 18:07 Urine Glucose (UA) Negative (NEGATIVE) 11/12/17 18:07 Urine Ketones Negative (NEGATIVE) 11/12/17 18:07 Urine Occult Blood Negative (NEGATIVE) 11/12/17 18:07 Urine Nitrite Negative (NEGATIVE) 11/12/17 18:07 Urine Bilirubin Negative (NEGATIVE) 11/12/17 18:07 Urine Urobilinogen Normal (NORMAL) 11/12/17 18:07 Ur Leukocyte Esterase 1+ (NEGATIVE) 11/12/17 18:07 Urine RBC 0-2 /HPF (NONE SEEN) 11/12/17 18:07 Urine WBC 0-2 /HPF (NONE SEEN) 11/12/17 18:07 Ur Squamous Epith Cells Few /HPF (NEGATIVE) 11/12/17 18:07 Urine Bacteria Trace /HPF (NEGATIVE) 11/12/17 18:07 Ur Culture Indicated? No/not indicated 11/12/17 18:07 Stool Description 50g black liquid 11/12/17 15:16 Stl Occult Blood (IFOB) Positive (NEGATIVE) A 11/11/17 18:10 Stool for White Cells Positive (NEGATIVE) A 11/12/17 15:16 Stl C. diff Tox B Gene Negative (NEGATIVE) 11/12/17 15:16 Stl C. diff [id number] Negative (NEGATIVE) 11/12/17 15:16 Cryptosporid parvum Ag Positive (NEGATIVE) A 11/12/17 15:16 Giardia lamblia Ag Positive (NEGATIVE) A 11/12/17 15:16 Blood Type B POSITIVE 11/11/17 20:55 Antibody Screen Negative 11/11/17 20:55 Crossmatch See Detail 11/11/17 20:55 - Plan (1) Lower GI bleed Status: Acute Plan: S/P TRANSFUSE PRBC. MONITOR I& OS, H&H. HOLD NSAIDS AND COUMADIN, PT/ INR. BP MONITORING, SUPPLEMENTAL O2. RESP THERAPY, OCCULT STOOL +. CONSULT DR YOUNG, NPO FOR EGD THIS AM. PROTONIX IV, FLAGYL IV. 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
[2017-11-13] MEDS ORDERED: DIPRIVAN VIAL 20 ML ONE (14:07)
[2017-11-13 15:24] LABS: HEMATOCRIT 25.5 % (36.0-47.0)
[2017-11-13] MEDS ORDERED: BENADRYL INJ 50 MG VIAL IV ONE (16:46)
[2017-11-13] MEDS: FLAGYL TAB 500 MG PO SCH (20:24)
[2017-11-13] MEDS: NORCO 10/325 TAB PO PRN (20:25)
[2017-11-13] MEDS ORDERED: MYLICON TAB 80 MG CHEW PO PRN (23:10)
[2017-11-14] MEDS: FLAGYL TAB 500 MG PO SCH ×4 (02:41→21:21)
[2017-11-14] MEDS: NS 250 ML IV 250 ML IV SCH ×2 (02:41→16:56)
[2017-11-14] MEDS: NS 1000 ML 1,000 ML IV SCH ×3 (05:13→21:21)
[2017-11-14 05:31] LABS: ALANINE AMINOTRANSFERASE 19 Units/L (12-78); ALBUMIN 2.2 g/dL (3.4-5.0); ALKALINE PHOSPHATASE 38 Units/L (46-116); ASPARTATE AMINO TRANSFERASE 26 Units/L (15-37); BASOPHILS # (AUTO) 0.1 X10^3/uL (0.0-0.1); BASOPHILS % (AUTO) 2.7 % (0.2-1.0); BLOOD UREA NITROGEN 22 mg/dL (7-18); CHLORIDE 112 mmol/L (98-107); COR CA(FOR HYPOALB) 8.4 mg/dL (8.5-10.1); COR NA(FOR HYPERGLY) 143 mmol/L (136-145); CREATININE 1.01 mg/dL (0.55-1.02); EOSINOPHILS # (AUTO) 0.4 x10^3/uL (0.0-0.2); EOSINOPHILS % (AUTO) 7.8 % (0.9-2.9); HEMATOCRIT 24.6 % (36.0-47.0); HEMOGLOBIN 8.7 g/dL (12.0-16.0); LYMPHOCYTES % (AUTO) 18.1 % (21.0-51.0); MEAN CORPUSCULAR HEMOGLOBIN 30.4 pg (27.0-34.0); MEAN CORPUSCULAR HGB CONC 35.2 g/dL (33.0-35.0); MEAN CORPUSCULAR VOLUME 86.5 fL (80.0-100.0); MEAN PLATELET VOLUME 9.8 fL (7.4-11.0); MONOCYTES # (AUTO) 0.4 x10^3/uL (0.3-0.8); MONOCYTES % (AUTO) 7.1 % (0.0-13.0); NEUTROPHILS # (AUTO) 3.4 x10^3/uL (2.2-4.8); NEUTROPHILS % (AUTO) 64.3 % (42.0-75.0); PLATELET COUNT 97 X10^3/uL (150.0-450.0); RED BLOOD COUNT 2.85 X10^6/uL (3.5-5.4); RED CELL DISTRIBUTION WIDTH 14.9 % (11.6-16.5); SODIUM 143 mmol/L (136-145); TOTAL PROTEIN 4.4 g/dL (6.4-8.2); WHITE BLOOD COUNT 5.3 X10^3/uL (3.6-10.0); eGFR NON BLACK RACES 57 (>60)
[2017-11-14] MEDS: PROTONIX INJ 40 MG VIAL IVP SCH ×2 (08:31→21:21)
[2017-11-14] MEDS: PROVERA PO SCH (08:32)
[2017-11-14] MEDS: FOLIC ACID TAB 1 MG PO SCH (08:32)
[2017-11-14] MEDS: ZOLOFT PO SCH (08:32)
[2017-11-14] MEDS: MAG-OX TAB PO SCH (08:32)
[2017-11-14] MEDS: NS 500 ML IV 500 ML IV SCH (08:34)
[2017-11-14] MEDS: PROVENTIL NEB TX 0.083% 2.5MG/ 3ML NEB SCH ×4 (09:24→21:56)
[2017-11-14] MEDS: HEMOCYTE-PLUS PO SCH (09:25)
[2017-11-14] MEDS: PULMICORT NEB TX 0.5 MG NEB SCH ×2 (09:25→21:56)
[2017-11-14 14:04] LABS: BASOPHILS % (AUTO) 0.8 % (0.2-1.0); EOSINOPHILS # (AUTO) 0.3 x10^3/uL (0.0-0.2); EOSINOPHILS % (AUTO) 6.2 % (0.9-2.9); HEMATOCRIT 24.4 % (36.0-47.0); HEMOGLOBIN 8.6 g/dL (12.0-16.0); LYMPHOCYTES # (AUTO) 0.8 X10^3/uL (1.3-2.9); LYMPHOCYTES % (AUTO) 16.6 % (21.0-51.0); MEAN CORPUSCULAR HEMOGLOBIN 30.4 pg (27.0-34.0); MEAN CORPUSCULAR HGB CONC 35.1 g/dL (33.0-35.0); MEAN CORPUSCULAR VOLUME 86.6 fL (80.0-100.0); MEAN PLATELET VOLUME 8.7 fL (7.4-11.0); MONOCYTES # (AUTO) 0.3 x10^3/uL (0.3-0.8); MONOCYTES % (AUTO) 6.7 % (0.0-13.0); NEUTROPHILS # (AUTO) 3.4 x10^3/uL (2.2-4.8); NEUTROPHILS % (AUTO) 69.7 % (42.0-75.0); PLATELET COUNT 117 X10^3/uL (150.0-450.0); RED BLOOD COUNT 2.82 X10^6/uL (3.5-5.4); RED CELL DISTRIBUTION WIDTH 14.9 % (11.6-16.5); WHITE BLOOD COUNT 4.8 X10^3/uL (3.6-10.0)
--- NOTE | 2017-11-14 17:49 | PCM.PROG ---
Progress Note - Progress Note for Day of Date of Exam: 11/14/17 - Subjective Subjective: 72 WF ER ADMISSION ON 11/11 WITH CO WEAKNESS, DIARRHEA, BLACK TARRY STOOL. PT WAS ANEMIA ON ARRIVAL TO ER WITH POSITIVE OCCULT STOOL, PT S/P 4 UNITS PRBC, HGB 8.7 THIS AM, PT OCCULT STOOL POSITIVE, CURRENTLY ON PPI, INR. REPEAT AM CBC AND OCCULT STOOL. PT STATES SHE FEELS MUCH BETTER, ATE SAUSAGE BISCUIT THIS AM W/O NAUSEA. DISCUSSEE POSSIBLE DC HOME TOMORROW. HOLDING NSAIDS , COUMADIN, PT STOOL POSITIVE FOR GIARDIA, CURRENTLY ON FLAGYL IV. EGD PER DR YOUNG ON 11/13 SEE ENDO REPORT - Past Medical Family Social History Past Med/Fam/Surg Hx: No changes since H&P Allergies: Allergies egg Allergy (Verified 11/10/17 20:51) meperidine [From Demerol] Allergy (Verified 11/12/17 18:20) FLU VIRUS VACCINE Allergy (Uncoded 11/10/17 20:51) - Review of Systems ROS: No change since H&P - Vital Signs and I&O's Vital Signs: Temperature 99.8 F Pulse Rate [Apical] 101 Pulse Rate [Left Brachial] 83 Pulse Rate 100 Respiratory Rate 20 Blood Pressure [Left Arm] 120/90 Blood Pressure [Right Arm] 125/59 Blood Pressure 138/65 O2 Sat by Pulse Oximetry 100 Intake and Output: Intake & Output 11/12/17 11/13/17 11/14/17 11/15/17 11:59 11:59 11:59 11:59 Intake Total 1165 / 1165 2326 / 2326 2278 / 2278 485 / 485 Balance 1165 / 1165 2326 / 2326 2278 / 2278 485 / 485 - Physical Exam Oriented: Time, Person, Place Eyes: Normal Ear: Normal Nose: Normal Throat: Normal Respiratory: Diminished Cardiovascular: Normal : Normal Auscultation: Bowel Sounds: Normal Tenderness: Normal (no tenderness on palpitation) Skin: Normal Musculoskeletal: Normal Psychiatric: Normal Mood Description: Calm Affect: Normal Speech Pattern: Clear, Appropriate - Laboratory and Diagnostics Result Diagrams: 11/14/17 13:49 11/14/17 04:30 Labs: 11/12/17 15:16 Stool Stool Culture - Final 11/12/17 15:16 Stool - Final Laboratory WBC 4.8 X10^3/uL (3.6-10.0) 11/14/17 13:49 RBC 2.82 X10^6/uL (3.5-5.4) L 11/14/17 13:49 Hgb 8.6 g/dL (12.0-16.0) L 11/14/17 13:49 Hct 24.4 % (36.0-47.0) L 11/14/17 13:49 MCV 86.6 fL (80.0-100.0) 11/14/17 13:49 MCH 30.4 pg (27.0-34.0) 11/14/17 13:49 MCHC 35.1 g/dL (33.0-35.0) H 11/14/17 13:49 RDW 14.9 % (11.6-16.5) 11/14/17 13:49 Plt Count 117 X10^3/uL (150.0-450.0) L 11/14/17 13:49 Plt Count Comment Adequate (ADEQUATE) 11/11/17 18:00 MPV 8.7 fL (7.4-11.0) 11/14/17 13:49 Neut % (Auto) 69.7 % (42.0-75.0) 11/14/17 13:49 Lymph % (Auto) 16.6 % (21.0-51.0) L 11/14/17 13:49 [place] % (Auto) 6.7 % (0.0-13.0) 11/14/17 13:49 Eos % (Auto) 6.2 % (0.9-2.9) H 11/14/17 13:49 Baso % (Auto) 0.8 % (0.2-1.0) 11/14/17 13:49 Neut # (Auto) 3.4 x10^3/uL (2.2-4.8) 11/14/17 13:49 Lymph # (Auto) 0.8 X10^3/uL (1.3-2.9) L 11/14/17 13:49 Day # (Auto) 0.3 x10^3/uL (0.3-0.8) 11/14/17 13:49 Eos # (Auto) 0.3 x10^3/uL (0.0-0.2) H 11/14/17 13:49 Baso # (Auto) 0.0 X10^3/uL (0.0-0.1) 11/14/17 13:49 Absolute Nucleated RBC 0.0 /100WBC 11/14/17 13:49 Plt Morphology Comment Normal (NORMAL) 11/11/17 18:00 RBC Morphology Normal (NORMAL) 11/11/17 18:00 INR Target Range - 11/14/17 04:30 INR 1.20 (0.8-1.3) 11/14/17 04:30 Sodium 143 mmol/L (136-145) 11/14/17 04:30 Corrected Sodium 143 mmol/L (136-145) 11/14/17 04:30 Potassium 3.6 mmol/L (3.5-5.1) 11/14/17 04:30 Chloride 112 mmol/L (98-107) H 11/14/17 04:30 Carbon Dioxide 24.0 mmol/L (21-32) 11/14/17 04:30 BUN 22 mg/dL (7-18) H 11/14/17 04:30 Creatinine 1.01 mg/dL (0.55-1.02) 11/14/17 04:30 Est GFR (MDRD) Af Amer > 60 (>60) 11/14/17 04:30 Est GFR (MDRD) Non-Af 57 (>60) L 11/14/17 04:30 Glucose 118 mg/dL (65-99) H 11/14/17 04:30 Calcium 7.0 mg/dL (8.5-10.1) L 11/14/17 04:30 Corrected Calcium 8.4 mg/dL (8.5-10.1) L 11/14/17 04:30 Total Bilirubin 0.40 mg/dL (0.2-1.0) 11/14/17 04:30 AST 26 Units/L (15-37) 11/14/17 04:30 ALT 19 Units/L (12-78) 11/14/17 04:30 Alkaline Phosphatase 38 Units/L (46-116) L 11/14/17 04:30 Total Protein 4.4 g/dL (6.4-8.2) L 11/14/17 04:30 Albumin 2.2 g/dL (3.4-5.0) L 11/14/17 04:30 Globulin 2.2 g/dL (2.5-4.5) L 11/14/17 04:30 Albumin/Globulin Ratio 1.0 Ratio (1.1-2.1) L 11/14/17 04:30 TSH 3rd Generation 1.468 uIU/mL (0.358-3.74) 11/11/17 18:00 Specimen Type Random urine 11/12/17 18:07 Urine Color Yellow (YELLOW) 11/12/17 18:07 Urine Appearance Clear (CLEAR) 11/12/17 18:07 Urine pH 6.0 (5.0 - 8.0) 11/12/17 18:07 Ur Specific [place] 1.010 (1.000-1.030) 11/12/17 18:07 Urine Protein Negative (NEGATIVE) 11/12/17 18:07 Urine Glucose (UA) Negative (NEGATIVE) 11/12/17 18:07 Urine Ketones Negative (NEGATIVE) 11/12/17 18:07 Urine Occult Blood Negative (NEGATIVE) 11/12/17 18:07 Urine Nitrite Negative (NEGATIVE) 11/12/17 18:07 Urine Bilirubin Negative (NEGATIVE) 11/12/17 18:07 Urine Urobilinogen Normal (NORMAL) 11/12/17 18:07 Ur Leukocyte Esterase 1+ (NEGATIVE) 11/12/17 18:07 Urine RBC 0-2 /HPF (NONE SEEN) 11/12/17 18:07 Urine WBC 0-2 /HPF (NONE SEEN) 11/12/17 18:07 Ur Squamous Epith Cells Few /HPF (NEGATIVE) 11/12/17 18:07 Urine Bacteria Trace /HPF (NEGATIVE) 11/12/17 18:07 Ur Culture Indicated? No/not indicated 11/12/17 18:07 Stool Description 50g black liquid 11/12/17 15:16 Stl Occult Blood (IFOB) Positive (NEGATIVE) A 11/11/17 18:10 Stool for White Cells Positive (NEGATIVE) A 11/12/17 15:16 Stl C. diff Tox B Gene Negative (NEGATIVE) 11/12/17 15:16 Stl C. diff [id number] Negative (NEGATIVE) 11/12/17 15:16 Cryptosporid parvum Ag Positive (NEGATIVE) A 11/12/17 15:16 Giardia lamblia Ag Positive (NEGATIVE) A 11/12/17 15:16 Tissue Pathology To follow 11/13/17 14:23 Blood Type B POSITIVE 11/11/17 20:55 Antibody Screen Negative 11/11/17 20:55 Crossmatch See Detail 11/11/17 20:55 - Plan (1) Lower GI bleed Status: Acute Plan: S/P TRANSFUSE PRBC. MONITOR I& OS, H&H. HOLD NSAIDS AND COUMADIN, PT/ INR. BP MONITORING, SUPPLEMENTAL O2. RESP THERAPY, OCCULT STOOL +. CONSULT DR YOUNG, EGD PERFORMED ON 11/13. PROTONIX IV, FLAGYL IV. 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
[2017-11-14] MEDS: NORCO 10/325 TAB PO PRN (21:21)
[2017-11-15] MEDS: NORCO 10/325 TAB PO PRN (03:18)
[2017-11-15] MEDS: FLAGYL TAB 500 MG PO SCH ×3 (03:18→14:38)
[2017-11-15] MEDS: NS 1000 ML 1,000 ML IV SCH ×2 (04:18→11:49)
[2017-11-15 05:14] LABS: EOSINOPHILS # (AUTO) 0.4 x10^3/uL (0.0-0.2); EOSINOPHILS % (AUTO) 8.7 % (0.9-2.9); HEMATOCRIT 23.4 % (36.0-47.0); HEMOGLOBIN 8.5 g/dL (12.0-16.0); LYMPHOCYTES # (AUTO) 0.9 X10^3/uL (1.3-2.9); MEAN CORPUSCULAR HEMOGLOBIN 30.8 pg (27.0-34.0); MEAN CORPUSCULAR HGB CONC 36.2 g/dL (33.0-35.0); MEAN PLATELET VOLUME 8.6 fL (7.4-11.0); MONOCYTES # (AUTO) 0.5 x10^3/uL (0.3-0.8); MONOCYTES % (AUTO) 10.7 % (0.0-13.0); NEUTROPHILS # (AUTO) 2.6 x10^3/uL (2.2-4.8); NEUTROPHILS % (AUTO) 59.6 % (42.0-75.0); PLATELET COUNT 129 X10^3/uL (150.0-450.0); RED BLOOD COUNT 2.75 X10^6/uL (3.5-5.4); RED CELL DISTRIBUTION WIDTH 14.6 % (11.6-16.5); WHITE BLOOD COUNT 4.4 X10^3/uL (3.6-10.0)
[2017-11-15 05:34] LABS: ALANINE AMINOTRANSFERASE 19 Units/L (12-78); ALBUMIN 2.3 g/dL (3.4-5.0); ALKALINE PHOSPHATASE 39 Units/L (46-116); ASPARTATE AMINO TRANSFERASE 24 Units/L (15-37); BLOOD UREA NITROGEN 11 mg/dL (7-18); CALCIUM 7.2 mg/dL (8.5-10.1); CARBON DIOXIDE 25.7 mmol/L (21-32); CHLORIDE 109 mmol/L (98-107); COR CA(FOR HYPOALB) 8.6 mg/dL (8.5-10.1); CREATININE 0.98 mg/dL (0.55-1.02); SODIUM 141 mmol/L (136-145); TOTAL PROTEIN 4.7 g/dL (6.4-8.2); eGFR NON BLACK RACES 59 (>60)
[2017-11-15] MEDS: NS 250 ML IV 250 ML IV SCH (06:30)
[2017-11-15] MEDS: NS 500 ML IV 500 ML IV SCH (07:15)
[2017-11-15] MEDS: PROTONIX INJ 40 MG VIAL IVP SCH (08:20)
[2017-11-15] MEDS: HEMOCYTE-PLUS PO SCH (08:21)
[2017-11-15] MEDS: FOLIC ACID TAB 1 MG PO SCH (08:21)
[2017-11-15] MEDS: PROVERA PO SCH (08:21)
[2017-11-15] MEDS: ZOLOFT PO SCH (08:21)
[2017-11-15] MEDS: MAG-OX TAB PO SCH (08:21)
[2017-11-15] MEDS: PROVENTIL NEB TX 0.083% 2.5MG/ 3ML NEB SCH ×2 (09:18→12:34)
[2017-11-15] MEDS: PULMICORT NEB TX 0.5 MG NEB SCH (09:18)
[2017-11-15 12:06] VITALS: BP 97/55
== END 2017-11-15 14:45 | disposition home or self-care (01) | DRG 378 ==
LOC: ICU 17:36 → ER 17:36 → ICU 20:02
PROVIDERS: ADMIT Obstetrics & Gynecology Obstetrics; ATTEND Internal Medicine
DX: K22.6 Gastro-esophageal laceration-hemorrhage syndrome; F41.8 Other specified anxiety disorders; R10.13 Epigastric pain; K21.9 Gastro-esophageal reflux disease without esophagitis; K25.3 Acute gastric ulcer without hemorrhage or perforation; R53.1 Weakness; R79.89 Other specified abnormal findings of blood chemistry; A07.2 Cryptosporidiosis; D50.0 Iron deficiency anemia secondary to blood loss (chronic); Z79.01 Long term (current) use of anticoagulants; A07.1 Giardiasis [lambliasis]; M32.8 Other forms of systemic lupus erythematosus; K92.1 Melena; E86.0 Dehydration; R06.02 Shortness of breath; R11.2 Nausea with vomiting, unspecified; K25.9 Gastric ulcer, unspecified as acute or chronic, without hemorrhage or perforation
CPT/HCPCS: 36415; 36430; 71010; 71045; 74022; 74176; 80053; 81001; 82270; 83630; 84443; 85014; 85018; 85025; 85610; 86140; 86677; 86850; 86900; 86901; 86922; 87045; 87328; 87329; 87427; 87449; 87493; 87899; 88305; 93005; 93010; 94640; 96365; 96367; 99100; 99282; 99283; 99284; A4222; C9113; P9016; S0030; A4217; G0378; J1200; J2704; J3430; J7030; J7040; J7050; J7613; J7626

== ENCOUNTER 2017-11-21 14:45 | Observation (INO) ==
[2017-11-21] MEDS ORDERED: FLAGYL IV PREMIX 500 MG BAG 500 MG/100 ML BAG IV SCH (16:00)
[2017-11-21] MEDS ORDERED: ZOFRAN INJ 4 MG VIAL IVP PRN (16:18)
--- NOTE | 2017-11-21 16:22 | DR.H&P ---
H&P - History & Physical for Day of: H&P Date: 11/21/17 - Chief Complaint Chief Complaint: severely sob - History of Present Illness History of Present Illness: 72 WF DIRECT ADMIT FROM DR RICHARDS OFFICE WITH CO SEVERE SOB, WEAKNESS, CANNOT WALK TO BATHROOM WITHOUT FEELING LIKE SHE WAS GOING TO FAINT. PT CO BLACK LOOSE TARRY STOOL. PT HAD LOW GRADE TEMP 100, THIS AM. PT WAS IN HOSPITAL ONE WEEK AGO WITH INFECTIOUS COLITIS AND ANEMIA. PT WAS SEEN ON SUNDAY FOR REPEAT CBC , HGB 8.7 AND PT STATES SHE FELT OK AT THAT TIME. BECAME MORE WEAK AND SOB SUNDAY NIGHT. PT CO PALPITATIONS AND NAUSEA. PT HAS PMH OF HTN, COPD, LUPUS, OA. PT ADMITTED TO [facility] FOR TREATMENT AND EVALUATION OF ACUTE ILLNESS - Past Medical History Past Medical History: Anxiety, Arthritis, Asthma, COPD, GERD, Hypertension Additional Medical History: LUPUS - Past Surgical History Surgical History: Hysterectomy, Tonsillectomy - Family History Family Medical History: Diabetes Mellitus, Cancer, [place], Coronary Artery Disease - Social History Does patient currently use any type of tobacco product: Yes Have you used tobacco products in the last 12 months: Yes Type of Tobacco Use: Cigarettes Does any household member use tobacco: No Alcohol Use: None Drug Use: None - Medications Home Medications: egg Allergy (Verified 11/10/17 20:51) meperidine [From Demerol] Allergy (Verified 11/12/17 18:20) FLU VIRUS VACCINE Allergy (Uncoded 11/10/17 20:51) - Review of Systems Constitutional: Fever, Weakness ENT: No Symptoms Reported Respiratory: Shortness of Breath, SOB with Excertion, Wheezing Cardiovascular: Edema, Light Headedness Gastrointestinal: Nausea, Melena Genitourinary: No Symptoms Reported Musculoskeletal: Back Pain Skin: No Symptoms Reported Neurological: Weakness - Physical Exam Vital Signs: Blood Pressure [Left Arm] 120/90 Blood Pressure [Right Arm] 97/55 Blood Pressure 97/55 Oriented: Normal Eyes: Normal Ear: Normal Nose: Normal Throat: Normal Respiratory: Diminished Throughout Cardiovascular: Tachycardia, Edema (BILATERAL TRACE EDEMA) : Normal Auscultation: Bowel Sounds: Increased Tenderness: Diffuse, Mild Skin: Decreased Turgur Musculoskeletal: Back:Lumbar Psychiatric: Anxiety Affect: Anxious Speech Pattern: Clear, Appropriate - Assessment/Plan (1) SOB (shortness of breath) Status: Acute Plan: ADMIT, ABG ON ADMISSION. CXR, RESP THERAPY, SUPPLEMENTAL O2. IV FLAGYL DUE TO GIARDIA INFECTION, PPI THERAPY. CBC CMP ANEMIA PANEL OCCULT STOOL. UA, TYPE AND SCREEN (2) COPD exacerbation Status: Acute (3) Hypertension Status: Chronic (4) GERD (gastroesophageal reflux disease) Status: Chronic (5) Anemia due to blood loss Status: Acute (6) Lupus Status: Acute - Allergies Allergies/Adverse Reactions: Allergies Allergy/AdvReac Type Severity Reaction Status Date / Time egg Allergy Verified 11/10/17 20:51 meperidine [From Demerol] Allergy Verified 11/12/17 18:20 FLU VIRUS VACCINE Allergy Uncoded 11/10/17 20:51
[2017-11-21 17:08] LABS: BASOPHILS # (AUTO) 0.1 X10^3/uL (0.0-0.1); BASOPHILS % (AUTO) 2.1 % (0.2-1.0); EOSINOPHILS # (AUTO) 0.2 x10^3/uL (0.0-0.2); EOSINOPHILS % (AUTO) 3.3 % (0.9-2.9); HEMATOCRIT 27.5 % (36.0-47.0); HEMOGLOBIN 9.5 g/dL (12.0-16.0); LYMPHOCYTES # (AUTO) 1.3 X10^3/uL (1.3-2.9); LYMPHOCYTES % (AUTO) 19.8 % (21.0-51.0); MEAN CORPUSCULAR HEMOGLOBIN 30.6 pg (27.0-34.0); MEAN CORPUSCULAR HGB CONC 34.5 g/dL (33.0-35.0); MEAN CORPUSCULAR VOLUME 88.6 fL (80.0-100.0); MEAN PLATELET VOLUME 8.6 fL (7.4-11.0); MONOCYTES # (AUTO) 0.5 x10^3/uL (0.3-0.8); MONOCYTES % (AUTO) 7.4 % (0.0-13.0); NEUTROPHILS # (AUTO) 4.3 x10^3/uL (2.2-4.8); NEUTROPHILS % (AUTO) 67.4 % (42.0-75.0); PLATELET COUNT 254 X10^3/uL (150.0-450.0); RED BLOOD COUNT 3.11 X10^6/uL (3.5-5.4); RED CELL DISTRIBUTION WIDTH 15.3 % (11.6-16.5); WHITE BLOOD COUNT 6.4 X10^3/uL (3.6-10.0)
[2017-11-21 17:18] LABS: ALANINE AMINOTRANSFERASE 61 Units/L (12-78); ALKALINE PHOSPHATASE 50 Units/L (46-116); ASPARTATE AMINO TRANSFERASE 58 Units/L (15-37); BLOOD UREA NITROGEN 16 mg/dL (7-18); CALCIUM 8.3 mg/dL (8.5-10.1); CARBON DIOXIDE 28.1 mmol/L (21-32); CHLORIDE 107 mmol/L (98-107); COR CA(FOR HYPOALB) 9.1 mg/dL (8.5-10.1); COR NA(FOR HYPERGLY) 143 mmol/L (136-145); CREATININE 1.38 mg/dL (0.55-1.02); SODIUM 143 mmol/L (136-145); eGFR NON BLACK RACES 40 (>60)
[2017-11-21] MEDS ORDERED: XOPENEX 1.25 MG/3 ML NEBULE NEB ONE (17:34)
[2017-11-21] MEDS: XOPENEX 1.25 MG/3 ML NEBULE NEB SCH ×2 (17:35→20:58)
[2017-11-21] MEDS: PROTONIX INJ 40 MG VIAL IVP SCH ×2 (17:36→20:59)
[2017-11-21] MEDS: NS 1000 ML 1,000 ML IV SCH (17:36)
[2017-11-21] MEDS: FLAGYL TAB 500 MG PO SCH ×2 (17:36→20:59)
[2017-11-21 17:45] LABS: ABG BASE EXCESS 4.1 mmol/L (-2.0-2.0); ABG HCO3 28.5 mmol/L (22-26); FRACTIONATED INSPIRED OXYGEN 21
[2017-11-21 17:47] VITALS: BMI 22.6
[2017-11-21] MEDS: PULMICORT NEB TX 0.5 MG NEB SCH ×2 (17:49→20:58)
[2017-11-21 17:52] LABS: IRON 68 ug/dL (50-175)
[2017-11-21] MEDS ORDERED: SALINE 3% 15 ML NEB TX ONE (17:56)
[2017-11-21] MEDS ORDERED: SALINE 3% 15 ML NEB TX NEB ONE (17:59)
--- NOTE | 2017-11-21 17:59 | RAD ---
HISTORY: Shortness of breath Study: Single view of the chest. Comparison: None. Findings: The cardiomediastinal silhouette is normal. No focal consolidations, pleural effusions or pneumothora x. Osseous structures demonstrate no acute abnormality. IMPRESSION: 1. No acute cardiopulmonary process. Reported By:
[2017-11-21 20:17] LABS: BILIRUBIN,URINE NEGATIVE (NEGATIVE); BLOOD/HEMOGLOBIN,URINE NEGATIVE (NEGATIVE); GLUCOSE, URINE NEGATIVE (NEGATIVE); KETONES,URINE NEGATIVE (NEGATIVE); LEUKOCYTE ESTERASE ,URINE 1+ (NEGATIVE); NITRITES,URINE NEGATIVE (NEGATIVE); PROTEIN,URINE NEGATIVE (NEGATIVE); UROBILINOGEN,URINE NORMAL (NORMAL)
[2017-11-21 20:24] LABS: APPEARANCE,URINE SLIGHTLY HAZY (CLEAR); BACTERIA,URINE TRACE /HPF (NEGATIVE); COLOR,URINE YELLOW (YELLOW); RBC,URINE NONE SEEN /HPF (NONE SEEN); SQUAMOUS EPITHELIAL CELL,UR FEW /HPF (NEGATIVE)
[2017-11-22 06:41] LABS: BASOPHILS # (AUTO) 0.1 X10^3/uL (0.0-0.1); BASOPHILS % (AUTO) 2.2 % (0.2-1.0); EOSINOPHILS # (AUTO) 0.3 x10^3/uL (0.0-0.2); EOSINOPHILS % (AUTO) 6.2 % (0.9-2.9); HEMATOCRIT 23.9 % (36.0-47.0); HEMOGLOBIN 8.5 g/dL (12.0-16.0); LYMPHOCYTES # (AUTO) 1.4 X10^3/uL (1.3-2.9); LYMPHOCYTES % (AUTO) 27.1 % (21.0-51.0); MEAN CORPUSCULAR HEMOGLOBIN 32.8 pg (27.0-34.0); MEAN CORPUSCULAR HGB CONC 35.7 g/dL (33.0-35.0); MEAN CORPUSCULAR VOLUME 91.7 fL (80.0-100.0); MEAN PLATELET VOLUME 8.8 fL (7.4-11.0); MONOCYTES # (AUTO) 0.4 x10^3/uL (0.3-0.8); MONOCYTES % (AUTO) 7.4 % (0.0-13.0); NEUTROPHILS % (AUTO) 57.1 % (42.0-75.0); PLATELET COUNT 223 X10^3/uL (150.0-450.0); RED CELL DISTRIBUTION WIDTH 14.9 % (11.6-16.5); WHITE BLOOD COUNT 5.2 X10^3/uL (3.6-10.0)
[2017-11-22 07:01] LABS: ALANINE AMINOTRANSFERASE 52 Units/L (12-78); ALBUMIN 2.4 g/dL (3.4-5.0); ALKALINE PHOSPHATASE 43 Units/L (46-116); ASPARTATE AMINO TRANSFERASE 54 Units/L (15-37); BLOOD UREA NITROGEN 14 mg/dL (7-18); CALCIUM 7.7 mg/dL (8.5-10.1); CARBON DIOXIDE 27.9 mmol/L (21-32); CHLORIDE 109 mmol/L (98-107); CREATININE 1.15 mg/dL (0.55-1.02); SODIUM 143 mmol/L (136-145); TOTAL PROTEIN 5.1 g/dL (6.4-8.2); eGFR NON BLACK RACES 49 (>60)
[2017-11-22] MEDS ORDERED: BENADRYL INJ 50 MG VIAL IVP PRN (08:18)
[2017-11-22] MEDS ORDERED: NS 500 ML IV 500 ML IV ONE (08:18)
[2017-11-22] MEDS ORDERED: SOLU-Medrol 40 MG VIAL IVP ONE (08:18)
[2017-11-22] MEDS ORDERED: TYLENOL 325 MG TAB PO PRN (08:18)
[2017-11-22] MEDS: XOPENEX 1.25 MG/3 ML NEBULE NEB SCH ×4 (08:56→21:38)
[2017-11-22] MEDS: PULMICORT NEB TX 0.5 MG NEB SCH ×2 (08:57→21:38)
[2017-11-22] MEDS: FLAGYL TAB 500 MG PO SCH ×2 (09:01→21:11)
[2017-11-22] MEDS: PROTONIX INJ 40 MG VIAL IVP SCH ×2 (09:01→21:12)
[2017-11-22 16:03] LABS: HEMATOCRIT 32.2 % (36.0-47.0)
--- NOTE | 2017-11-22 17:56 | PCM.PROG ---
Progress Note - Progress Note for Day of Date of Exam: 11/22/17 - Subjective Subjective: 72 WF ADMITTED ON 11/21 WITH SOB, ANEMIA, HX OF GIARDIA. PT CURRENTLY ANEMIC, HGB 8.5, OCCULT STOOL PENDING. PT CO MILD SOB AT REST AND INCREASED ON EXERTION. PLAN TO TRANSFUSE 1 UNIT PRBC THIS AM. PT CURRENTLY ON FLAGYL, JET NEBS, SUPPLEMENTAL O2. ABG ON ADMISSION, REPEAT AM H & H - Past Medical Family Social History Past Med/Fam/Surg Hx: No changes since H&P Allergies: Allergies egg Allergy (Verified 11/10/17 20:51) meperidine [From Demerol] Allergy (Verified 11/12/17 18:20) FLU VIRUS VACCINE Allergy (Uncoded 11/10/17 20:51) - Review of Systems ROS: No change since H&P - Vital Signs and I&O's Vital Signs: Temperature 98.1 F Pulse Rate [Apical] 74 Pulse Rate 63 Respiratory Rate 16 Blood Pressure [Left Arm] 128/60 Blood Pressure [Right Arm] 97/55 Blood Pressure 119/58 O2 Sat by Pulse Oximetry 100 Intake and Output: Intake & Output 11/20/17 11/21/17 11/22/17 11/23/17 11:59 11:59 11:59 11:59 Intake Total 900 / 900 604 / 604 Balance 900 / 900 604 / 604 - Physical Exam Oriented: Normal Eyes: Normal Ear: Normal Nose: Normal Throat: Normal Respiratory: Diminished Cardiovascular: Tachycardia, Edema (BILATERAL TRACE EDEMA) : Normal Auscultation: Bowel Sounds: Increased Tenderness: Diffuse, Mild Skin: Decreased Turgur Musculoskeletal: Back:Lumbar Psychiatric: Anxiety Affect: Anxious Speech Pattern: Clear, Appropriate - Laboratory and Diagnostics Result Diagrams: 11/22/17 15:44 11/22/17 05:41 Labs: Laboratory WBC 5.2 X10^3/uL (3.6-10.0) 11/22/17 05:41 RBC 2.60 X10^6/uL (3.5-5.4) L 11/22/17 05:41 Hgb 11.0 g/dL (12.0-16.0) L D 11/22/17 15:44 Hct 32.2 % (36.0-47.0) L 11/22/17 15:44 MCV 91.7 fL (80.0-100.0) 11/22/17 05:41 MCH 32.8 pg (27.0-34.0) 11/22/17 05:41 MCHC 35.7 g/dL (33.0-35.0) H 11/22/17 05:41 RDW 14.9 % (11.6-16.5) 11/22/17 05:41 Plt Count 223 X10^3/uL (150.0-450.0) 11/22/17 05:41 MPV 8.8 fL (7.4-11.0) 11/22/17 05:41 Neut % (Auto) 57.1 % (42.0-75.0) 11/22/17 05:41 Lymph % (Auto) 27.1 % (21.0-51.0) 11/22/17 05:41 [place] % (Auto) 7.4 % (0.0-13.0) 11/22/17 05:41 Eos % (Auto) 6.2 % (0.9-2.9) H 11/22/17 05:41 Baso % (Auto) 2.2 % (0.2-1.0) H 11/22/17 05:41 Neut # (Auto) 3.0 x10^3/uL (2.2-4.8) 11/22/17 05:41 Lymph # (Auto) 1.4 X10^3/uL (1.3-2.9) 11/22/17 05:41 [place] # (Auto) 0.4 x10^3/uL (0.3-0.8) 11/22/17 05:41 Eos # (Auto) 0.3 x10^3/uL (0.0-0.2) H 11/22/17 05:41 Baso # (Auto) 0.1 X10^3/uL (0.0-0.1) 11/22/17 05:41 Absolute Nucleated RBC 0.1 /100WBC 11/22/17 05:41 Sample Site Rb 11/21/17 17:39 ABG pH 7.450 (7.35-7.45) 11/21/17 17:39 ABG pCO2 41.0 mmHg (35.0-45.0) 11/21/17 17:39 ABG pO2 76.0 mmHg (80.0-100.0) L 11/21/17 17:39 ABG HCO3 28.5 mmol/L (22-26) H 11/21/17 17:39 ABG O2 Saturation 96.0 % (90-100) 11/21/17 17:39 ABG Base Excess 4.1 mmol/L (-2.0-2.0) H 11/21/17 17:39 [place] Test N/a 11/21/17 17:39 A-a Gradient 22.0 mmHg 11/21/17 17:39 FiO2 21 11/21/17 17:39 Blood Gas Comments Pt angela well. cdn 11/21/17 17:39 Sodium 143 mmol/L (136-145) 11/22/17 05:41 Corrected Sodium TNP 11/22/17 05:41 Potassium 4.1 mmol/L (3.5-5.1) 11/22/17 05:41 Chloride 109 mmol/L (98-107) H 11/22/17 05:41 Carbon Dioxide 27.9 mmol/L (21-32) 11/22/17 05:41 BUN 14 mg/dL (7-18) 11/22/17 05:41 Creatinine 1.15 mg/dL (0.55-1.02) H 11/22/17 05:41 Est GFR (MDRD) Af Amer 60 (>60) 11/22/17 05:41 Est GFR (MDRD) Non-Af 49 (>60) L 11/22/17 05:41 Glucose 94 mg/dL (65-99) 11/22/17 05:41 Calcium 7.7 mg/dL (8.5-10.1) L 11/22/17 05:41 Corrected Calcium 9.0 mg/dL (8.5-10.1) 11/22/17 05:41 Iron 68 ug/dL (50-175) 11/21/17 16:52 Transferrin 163 mg/dL (202-364) L 11/21/17 16:52 Ferritin 96 ng/mL (8-252) 11/21/17 16:52 Total Bilirubin 0.30 mg/dL (0.2-1.0) 11/22/17 05:41 AST 54 Units/L (15-37) H 11/22/17 05:41 ALT 52 Units/L (12-78) 11/22/17 05:41 Alkaline Phosphatase 43 Units/L (46-116) L 11/22/17 05:41 Total Protein 5.1 g/dL (6.4-8.2) L 11/22/17 05:41 Albumin 2.4 g/dL (3.4-5.0) L 11/22/17 05:41 Globulin 2.7 g/dL (2.5-4.5) 11/22/17 05:41 Albumin/Globulin Ratio 0.9 Ratio (1.1-2.1) L 11/22/17 05:41 Vitamin B12 860 pg/mL (193-986) 11/21/17 16:52 Folate > 20.0 ng/mL (>8.6) 11/21/17 16:52 Specimen Type Random urine 11/21/17 20:06 Urine Color Yellow (YELLOW) 11/21/17 20:06 Urine Appearance Slightly hazy (CLEAR) 11/21/17 20:06 Urine pH 6.0 (5.0 - 8.0) 11/21/17 20:06 Ur Specific [place] 1.015 (1.000-1.030) 11/21/17 20:06 Urine Protein Negative (NEGATIVE) 11/21/17 20:06 Urine Glucose (UA) Negative (NEGATIVE) 11/21/17 20:06 Urine Ketones Negative (NEGATIVE) 11/21/17 20:06 Urine Occult Blood Negative (NEGATIVE) 11/21/17 20:06 Urine Nitrite Negative (NEGATIVE) 11/21/17 20:06 Urine Bilirubin Negative (NEGATIVE) 11/21/17 20:06 Urine Urobilinogen Normal (NORMAL) 11/21/17 20:06 Ur Leukocyte Esterase 1+ (NEGATIVE) 11/21/17 20:06 Urine RBC None seen /HPF (NONE SEEN) 11/21/17 20:06 Urine WBC 0-2 /HPF (NONE SEEN) 11/21/17 20:06 Ur Squamous Epith Cells Few /HPF (NEGATIVE) 11/21/17 20:06 Urine Bacteria Trace /HPF (NEGATIVE) 11/21/17 20:06 Ur Culture Indicated? No/not indicated 11/21/17 20:06 Blood Type B POSITIVE 09/26/18 16:52 Antibody Screen Negative 11/21/17 16:52 Crossmatch See Detail 11/21/17 16:52 - Plan (1) SOB (shortness of breath) Status: Acute Plan: ABG ON ADMISSION. CXR, RESP THERAPY, SUPPLEMENTAL O2. FLAGYL DUE TO GIARDIA INFECTION, PPI THERAPY. CBC CMP ANEMIA PANEL OCCULT STOOL. UA, TYPE AND SCREEN TRANSFUSE PRBC (2) COPD exacerbation Status: Acute (3) Hypertension Status: Chronic (4) GERD (gastroesophageal reflux disease) Status: Chronic (5) Anemia due to blood loss Status: Acute (6) Lupus Status: Acute
[2017-11-22] MEDS: NS 1000 ML 1,000 ML IV SCH (21:13)
[2017-11-23] MEDS: PROTONIX INJ 40 MG VIAL IVP SCH (08:25)
[2017-11-23] MEDS: FLAGYL TAB 500 MG PO SCH (08:25)
[2017-11-23] MEDS: PULMICORT NEB TX 0.5 MG NEB SCH (08:55)
[2017-11-23] MEDS: XOPENEX 1.25 MG/3 ML NEBULE NEB SCH ×2 (08:55→12:13)
[2017-11-23 09:18] LABS: BASOPHILS # (AUTO) 0.1 X10^3/uL (0.0-0.1); BASOPHILS % (AUTO) 1.3 % (0.2-1.0); EOSINOPHILS # (AUTO) 0.1 x10^3/uL (0.0-0.2); EOSINOPHILS % (AUTO) 1.5 % (0.9-2.9); HEMATOCRIT 27.7 % (36.0-47.0); HEMOGLOBIN 9.6 g/dL (12.0-16.0); LYMPHOCYTES # (AUTO) 1.4 X10^3/uL (1.3-2.9); LYMPHOCYTES % (AUTO) 16.1 % (21.0-51.0); MEAN CORPUSCULAR HEMOGLOBIN 31.1 pg (27.0-34.0); MEAN CORPUSCULAR HGB CONC 34.7 g/dL (33.0-35.0); MEAN CORPUSCULAR VOLUME 89.6 fL (80.0-100.0); MEAN PLATELET VOLUME 9.2 fL (7.4-11.0); MONOCYTES # (AUTO) 0.5 x10^3/uL (0.3-0.8); MONOCYTES % (AUTO) 5.9 % (0.0-13.0); NEUTROPHILS # (AUTO) 6.7 x10^3/uL (2.2-4.8); NEUTROPHILS % (AUTO) 75.2 % (42.0-75.0); PLATELET COUNT 183 X10^3/uL (150.0-450.0); RED CELL DISTRIBUTION WIDTH 15.3 % (11.6-16.5); WHITE BLOOD COUNT 8.8 X10^3/uL (3.6-10.0)
[2017-11-23 09:31] LABS: ALBUMIN 2.4 g/dL (3.4-5.0); CALCIUM 7.8 mg/dL (8.5-10.1); CARBON DIOXIDE 27.9 mmol/L (21-32); COR CA(FOR HYPOALB) 9.1 mg/dL (8.5-10.1); CREATININE 1.16 mg/dL (0.55-1.02); TOTAL PROTEIN 5.2 g/dL (6.4-8.2)
--- NOTE | 2017-11-23 09:56 | RAD ---
HISTORY: Shortness of breath, COPD Study: Single-view chest, done portably Comparison: 11/21/2017. Technique: Patient is rotated slightly toward the left. Findings: There is slight volume loss in the left lower lobe with increasing density, likely indicating atelect asis, infiltrate and/or a small amount of pleural fluid. The lungs are hyperexpanded with increased i nterstitial markings bilaterally, indicating COPD. The trachea is midline. Heart size is normal. Osse ous structures are intact. IMPRESSION: Increasing density with slight volume loss in the left retrocardiac region. Findings are likely on th e basis of developing atelectasis, infiltrate and/or a small amount of pleural fluid. COPD. Reported By:
[2017-11-23 13:00] VITALS: BP 137/63
== END 2017-11-23 14:47 | disposition home or self-care (01) ==
LOC: ICU
PROVIDERS: ADMIT Internal Medicine; ATTEND Internal Medicine
DX: R94.4 Abnormal results of kidney function studies; R06.02 Shortness of breath; J44.1 Chronic obstructive pulmonary disease with (acute) exacerbation; K21.9 Gastro-esophageal reflux disease without esophagitis; R53.1 Weakness; R26.89 Other abnormalities of gait and mobility; D62 Acute posthemorrhagic anemia; I10 Essential (primary) hypertension; M32.8 Other forms of systemic lupus erythematosus; R60.0 Localized edema; M19.90 Unspecified osteoarthritis, unspecified site
CPT/HCPCS: 36415; 36430; 36600; 71010; 71045; 80053; 81001; 82270; 82607; 82728; 82746; 82803; 83540; 84466; 85014; 85018; 85025; 86850; 86900; 86901; 86922; 94640; 97166; 97530; A4222; C9113; P9016; G0378; J2920; J7030; J7040; J7626

== ENCOUNTER 2018-06-23 19:53 | Inpatient (IN) ==
[2018-06-23] MEDS ORDERED: SOLU-Medrol 125 MG VIAL IVP ONE (20:06)
[2018-06-23] MEDS ORDERED: SOLU-Medrol 125 MG VIAL ONE (20:06)
[2018-06-23 20:08] LABS: ABG BASE EXCESS 2.2 mmol/L (-2.0-2.0); ABG HCO3 29.7 mmol/L (22-26)
[2018-06-23] MEDS ORDERED: DUONEB 0.5 MG/3 MG NEB ONE (20:16)
[2018-06-23] MEDS ORDERED: DUONEB 0.5 MG/3 MG ONE (20:18)
[2018-06-23] MEDS ORDERED: LASIX IVP ONE (20:20)
--- NOTE | 2018-06-23 20:22 | DR.SOBA ---
HPI Time Seen Time Seen by Provider: 06/23/18 20:15 Complaints Chief Complaint Doctors Comments: INCREASING SOB. PMH PMH Past Medical History: Anxiety, Arthritis, Asthma, COPD, GERD and Hypertension Surgical History: Hysterectomy and Tonsillectomy Family History Family Medical History: Diabetes Mellitus, Cancer, [place] and Coronary Artery Disease Social History Do you use any recreational Drugs:: No PE Vital Signs Vitals: Temperature 97.8 F Pulse Rate [Apical] 82 Pulse Rate 94 Respiratory Rate 24 Blood Pressure [Left Arm] 120/73 Blood Pressure [Right Arm] 97/55 Blood Pressure 244/108 O2 Sat by Pulse Oximetry 95 ROR Labs Reviewed Result Diagrams: 06/23/18 20:30 06/23/18 20:30 Laboratory: WBC 7.4 X10^3/uL (3.6-10.0) 06/23/18 20:30 RBC 4.13 X10^6/uL (3.5-5.4) 06/23/18 20:30 Hgb 12.4 g/dL (12.0-16.0) 06/23/18 20:30 Hct 37.2 % (36.0-47.0) 06/23/18 20:30 MCV 90.0 fL (80.0-100.0) 06/23/18 20:30 MCH 30.0 pg (27.0-34.0) 06/23/18 20:30 MCHC 33.4 g/dL (33.0-35.0) 06/23/18 20:30 RDW 13.0 % (11.6-16.5) 06/23/18 20:30 Plt Count 185 X10^3/uL (150.0-450.0) 06/23/18 20:30 MPV 8.7 fL (7.4-11.0) 06/23/18 20:30 Neut % (Auto) 71.7 % (42.0-75.0) 06/23/18 20:30 Lymph % (Auto) 13.1 % (21.0-51.0) L 06/23/18 20:30 [place] % (Auto) 8.4 % (0.0-13.0) 06/23/18 20:30 Eos % (Auto) 5.2 % (0.9-2.9) H 06/23/18 20:30 Baso % (Auto) 1.6 % (0.2-1.0) H 06/23/18 20:30 Neut # (Auto) 5.3 x10^3/uL (2.2-4.8) H 06/23/18 20:30 Lymph # (Auto) 1.0 X10^3/uL (1.3-2.9) L 06/23/18 20:30 [place] # (Auto) 0.6 x10^3/uL (0.3-0.8) 06/23/18 20:30 Eos # (Auto) 0.4 x10^3/uL (0.0-0.2) H 06/23/18 20:30 Baso # (Auto) 0.1 X10^3/uL (0.0-0.1) 06/23/18 20:30 Absolute Nucleated RBC 0.0 /100WBC 06/23/18 20:30 INR Target Range - 06/23/18 20:30 INR 1.15 (0.8-1.3) 06/23/18 20:30 APTT 29.4 SECONDS (22.9-36.5) 06/23/18 20:30 PTT Comment - 06/23/18 20:30 Sample Site Lb 06/23/18 21:35 ABG pH 7.420 (7.35-7.45) 06/23/18 21:35 ABG pCO2 41.0 mmHg (35.0-45.0) 06/23/18 21:35 ABG pO2 73.0 mmHg (80.0-100.0) L 06/23/18 21:35 ABG HCO3 26.6 mmol/L (22-26) H 06/23/18 21:35 ABG O2 Saturation 95.0 % (90-100) 06/23/18 21:35 ABG Base Excess 1.9 mmol/L (-2.0-2.0) 06/23/18 21:35 [place] Test Pos 06/23/18 21:35 A-a Gradient 90.0 mmHg 06/23/18 21:35 FiO2 30.0 06/23/18 21:35 Blood Gas Comments [place] well ae 06/23/18 21:35 Sodium 143 mmol/L (136-145) 06/23/18 20:30 Corrected Sodium TNP 06/23/18 20:30 Potassium 4.5 mmol/L (3.5-5.1) 06/23/18 20:30 Chloride 106 mmol/L (98-107) 06/23/18 20:30 Carbon Dioxide 29.2 mmol/L (21-32) 06/23/18 20:30 BUN 20 mg/dL (7-18) H 06/23/18 20:30 Creatinine 1.06 mg/dL (0.55-1.02) H 06/23/18 20:30 Est GFR (MDRD) Af Amer > 60 (>60) 06/23/18 20:30 Est GFR (MDRD) Non-Af 54 (>60) L 06/23/18 20:30 Glucose 105 mg/dL (65-99) H 06/23/18 20:30 Calcium 9.0 mg/dL (8.5-10.1) 06/23/18 20:30 Corrected Calcium TNP 06/23/18 20:30 Magnesium 1.7 mg/dL (1.7-2.9) 06/23/18 20:30 Total Bilirubin 0.50 mg/dL (0.2-1.0) 06/23/18 20:30 AST 36 Units/L (15-37) 06/23/18 20:30 ALT 27 Units/L (12-78) 06/23/18 20:30 Alkaline Phosphatase 70 Units/L (46-116) 06/23/18 20:30 Creatine Kinase 372 Units/L (26-192) H 06/23/18 20:30 CK-MB (CK-2) 6.6 ng/mL (0-4.0) H* 06/23/18 20:30 CK/CKMB % Calc 1.8 % (<4) 06/23/18 20:30 Troponin I 0.04 ng/mL (0-1.5) 06/23/18 20:30 Total Protein 7.2 g/dL (6.4-8.2) 06/23/18 20:30 Albumin 3.7 g/dL (3.4-5.0) 06/23/18 20:30 Globulin 3.5 g/dL (2.5-4.5) 06/23/18 20:30 Albumin/Globulin Ratio 1.1 Ratio (1.1-2.1) 06/23/18 20:30 Specimen Type Catherized urine 06/23/18 20:40 Urine Color Yellow (YELLOW) 06/23/18 20:40 Urine Appearance Clear (CLEAR) 06/23/18 20:40 Urine pH 5.0 (5.0 - 8.0) 06/23/18 20:40 Ur Specific [place] 1.020 (1.000-1.030) 06/23/18 20:40 Urine Protein 2+ (NEGATIVE) 06/23/18 20:40 Urine Glucose (UA) Negative (NEGATIVE) 06/23/18 20:40 Urine Ketones Negative (NEGATIVE) 06/23/18 20:40 Urine Occult Blood 1+ (NEGATIVE) 06/23/18 20:40 Urine Nitrite Negative (NEGATIVE) 06/23/18 20:40 Urine Bilirubin Negative (NEGATIVE) 06/23/18 20:40 Urine Urobilinogen Normal (NORMAL) 06/23/18 20:40 Ur Leukocyte Esterase Negative (NEGATIVE) 06/23/18 20:40 Urine RBC 0-2 /HPF (NONE SEEN) 06/23/18 20:40 Urine WBC None seen /HPF (NONE SEEN) 06/23/18 20:40 Ur Squamous Epith Cells Few /HPF (NEGATIVE) 06/23/18 20:40 Amorphous Sediment Trace /HPF (NEGATIVE) 06/23/18 20:40 Urine Bacteria Negative /HPF (NEGATIVE) 06/23/18 20:40 Ur Culture Indicated? No/not indicated 06/23/18 20:40
[2018-06-23] MEDS ORDERED: LASIX ONE (20:26)
[2018-06-23 20:45] LABS: BASOPHILS # (AUTO) 0.1 X10^3/uL (0.0-0.1); BASOPHILS % (AUTO) 1.6 % (0.2-1.0); EOSINOPHILS # (AUTO) 0.4 x10^3/uL (0.0-0.2); EOSINOPHILS % (AUTO) 5.2 % (0.9-2.9); HEMATOCRIT 37.2 % (36.0-47.0); HEMOGLOBIN 12.4 g/dL (12.0-16.0); LYMPHOCYTES % (AUTO) 13.1 % (21.0-51.0); MEAN CORPUSCULAR HGB CONC 33.4 g/dL (33.0-35.0); MEAN PLATELET VOLUME 8.7 fL (7.4-11.0); MONOCYTES # (AUTO) 0.6 x10^3/uL (0.3-0.8); MONOCYTES % (AUTO) 8.4 % (0.0-13.0); NEUTROPHILS # (AUTO) 5.3 x10^3/uL (2.2-4.8); NEUTROPHILS % (AUTO) 71.7 % (42.0-75.0); PLATELET COUNT 185 X10^3/uL (150.0-450.0); RED BLOOD COUNT 4.13 X10^6/uL (3.5-5.4); WHITE BLOOD COUNT 7.4 X10^3/uL (3.6-10.0)
[2018-06-23 20:56] LABS: BILIRUBIN,URINE NEGATIVE (NEGATIVE); BLOOD/HEMOGLOBIN,URINE 1+ (NEGATIVE); GLUCOSE, URINE NEGATIVE (NEGATIVE); KETONES,URINE NEGATIVE (NEGATIVE); LEUKOCYTE ESTERASE ,URINE NEGATIVE (NEGATIVE); NITRITES,URINE NEGATIVE (NEGATIVE); PROTEIN,URINE 2+ (NEGATIVE); UROBILINOGEN,URINE NORMAL (NORMAL)
[2018-06-23 20:58] LABS: BLOOD UREA NITROGEN 20 mg/dL (7-18); CARBON DIOXIDE 29.2 mmol/L (21-32); CHLORIDE 106 mmol/L (98-107); CREATININE 1.06 mg/dL (0.55-1.02); SODIUM 143 mmol/L (136-145); TROPONIN I 0.04 ng/mL (0-1.5); eGFR NON BLACK RACES 54 (>60)
[2018-06-23 21:03] LABS: APPEARANCE,URINE CLEAR (CLEAR); COLOR,URINE YELLOW (YELLOW); RBC,URINE 0-2 /HPF (NONE SEEN); SQUAMOUS EPITHELIAL CELL,UR FEW /HPF (NEGATIVE)
[2018-06-23 21:04] LABS: AMORPHOUS SEDIMENT,UR TRACE /HPF (NEGATIVE); BACTERIA,URINE NEGATIVE /HPF (NEGATIVE)
[2018-06-23 21:21] LABS: ALANINE AMINOTRANSFERASE 27 Units/L (12-78); ALBUMIN 3.7 g/dL (3.4-5.0); ALKALINE PHOSPHATASE 70 Units/L (46-116); ASPARTATE AMINO TRANSFERASE 36 Units/L (15-37); CKMB % 1.8 % (<4); CREATINE KINASE 372 Units/L (26-192); MAGNESIUM 1.7 mg/dL (1.7-2.9); TOTAL PROTEIN 7.2 g/dL (6.4-8.2)
[2018-06-23 21:25] LABS: CREATINE KINASE MB 6.6 ng/mL (0-4.0)
[2018-06-23 21:41] LABS: ABG BASE EXCESS 1.9 mmol/L (-2.0-2.0); ABG HCO3 26.6 mmol/L (22-26)
[2018-06-23 21:42] LABS: ABG ALLEN TEST POS
--- NOTE | 2018-06-23 21:50 | RAD ---
AP chest. Indication: Shortness of breath Comparison: 12/24/2017 Findings: Chronic interstitial lung change and COPD are noted without focal airspace opacity, pleural effusion or pneumothorax. Heart size unchanged. Trachea is midline. No acute osseous abnormality. Impression: Chronic interstitial lung changes and COPD without acute airspace disease or CHF. Reported By:
[2018-06-23] MEDS ORDERED: ROCEPHIN VIAL 1 GRAM IVP ONE (22:34)
[2018-06-23] MEDS ORDERED: ROCEPHIN VIAL 1 GRAM ONE (22:39)
[2018-06-23] MEDS ORDERED: NORCO 10/325 TAB PO PRN (23:25)
[2018-06-23 23:44] VITALS: BMI 22.8
[2018-06-24] MEDS: DUONEB 0.5 MG/3 MG NEB SCH ×7 (01:30→20:28)
[2018-06-24 05:19] LABS: BASOPHILS % (AUTO) 0.7 % (0.2-1.0); EOSINOPHILS % (AUTO) 0.1 % (0.9-2.9); HEMATOCRIT 37.5 % (36.0-47.0); HEMOGLOBIN 12.5 g/dL (12.0-16.0); LYMPHOCYTES # (AUTO) 0.3 X10^3/uL (1.3-2.9); LYMPHOCYTES % (AUTO) 6.1 % (21.0-51.0); MEAN CORPUSCULAR HEMOGLOBIN 29.9 pg (27.0-34.0); MEAN CORPUSCULAR HGB CONC 33.3 g/dL (33.0-35.0); MEAN CORPUSCULAR VOLUME 89.7 fL (80.0-100.0); MEAN PLATELET VOLUME 9.3 fL (7.4-11.0); MONOCYTES # (AUTO) 0.1 x10^3/uL (0.3-0.8); MONOCYTES % (AUTO) 1.3 % (0.0-13.0); NEUTROPHILS # (AUTO) 4.7 x10^3/uL (2.2-4.8); NEUTROPHILS % (AUTO) 91.8 % (42.0-75.0); PLATELET COUNT 171 X10^3/uL (150.0-450.0); RED BLOOD COUNT 4.18 X10^6/uL (3.5-5.4); RED CELL DISTRIBUTION WIDTH 12.8 % (11.6-16.5); WHITE BLOOD COUNT 5.1 X10^3/uL (3.6-10.0)
[2018-06-24 05:31] LABS: ALANINE AMINOTRANSFERASE 25 Units/L (12-78); ALBUMIN 3.7 g/dL (3.4-5.0); ALKALINE PHOSPHATASE 67 Units/L (46-116); ASPARTATE AMINO TRANSFERASE 34 Units/L (15-37); BLOOD UREA NITROGEN 25 mg/dL (7-18); CALCIUM 8.9 mg/dL (8.5-10.1); CARBON DIOXIDE 25.9 mmol/L (21-32); CHLORIDE 103 mmol/L (98-107); CHOL/HDL RATIO 2.6 (0.0-5.0); CHOLESTEROL 195 mg/dL (0-200); COR NA(FOR HYPERGLY) 142 mmol/L (136-145); CREATININE 1.18 mg/dL (0.55-1.02); HDL CHOLESTEROL 75 mg/dL (40-60); MAGNESIUM 1.6 mg/dL (1.7-2.9); SODIUM 141 mmol/L (136-145); TOTAL PROTEIN 7.3 g/dL (6.4-8.2); TRIGLYCERIDES 37 mg/dL (0-150); eGFR NON BLACK RACES 48 (>60)
[2018-06-24] MEDS ORDERED: COUMADIN TAB 10 MG ONE (05:53)
[2018-06-24] MEDS: COUMADIN TAB 10 MG PO ONE ×2 (05:55→05:58)
[2018-06-24 06:02] LABS: CKMB % 1.8 % (<4); TROPONIN I 0.03 ng/mL (0-1.5)
[2018-06-24 06:19] LABS: CREATINE KINASE MB 5.6 ng/mL (0-4.0)
[2018-06-24 06:20] LABS: PLATELET MORPHOLOGY COMMENT NORMAL (NORMAL)
[2018-06-24] MEDS: PULMICORT NEB TX 0.5 MG NEB SCH ×2 (08:20→20:28)
[2018-06-24] MEDS ORDERED: TUSSIONEX PENNKINETIC SUSP PO PRN (08:55)
[2018-06-24] MEDS ORDERED: PULMICORT NEB TX 0.5 MG NEB SCH (09:00)
[2018-06-24] MEDS ORDERED: PATIENT'S HOME MEDICATION (Fluticasone Propion-Salmeterol [Fluticasone Propion-Salmeterol] IN SCH (09:00)
[2018-06-24] MEDS ORDERED: ROBITUSSIN DM ONE (09:11)
[2018-06-24] MEDS: ZOLOFT PO SCH (09:14)
[2018-06-24] MEDS: ROCEPHIN VIAL 1 GRAM IVP SCH (09:14)
[2018-06-24] MEDS: ROBITUSSIN DM PO SCH ×5 (09:14→21:56)
[2018-06-24] MEDS: PEPCID TAB 20 MG PO SCH (09:14)
[2018-06-24] MEDS: ZEBETA TAB 5 MG PO SCH (09:14)
[2018-06-24] MEDS: PLAQUENIL PO SCH (09:14)
[2018-06-24] MEDS: PROTONIX TAB 40 MG PO SCH (09:15)
[2018-06-24] MEDS: NS 1000 ML 1,000 ML IV SCH (10:43)
[2018-06-24] MEDS: SOLU-Medrol 125 MG VIAL IVP SCH ×3 (10:43→21:57)
[2018-06-24 12:02] LABS: TROPONIN I 0.03 ng/mL (0-1.5)
[2018-06-24 12:05] LABS: CREATINE KINASE MB 6.2 ng/mL (0-4.0)
--- NOTE | 2018-06-24 16:53 | DR.H&P ---
H&P - History & Physical for Day of: H&P Date: 06/23/18 - Chief Complaint Chief Complaint: sob - History of Present Illness History of Present Illness: 72 WF ER ADMISSION AFTER PRESENTING WITH CO SOB, CHEST PRESSURE. PTHAS PMH OF COPD WITH RESP FAILURE, USING DUO NEBS AND O2 AT HOME WITHOUT IMPROVEMENT. PT WAS EVALUATED IN ER, ABG WITH CO2 RETENTION. PT ADMITTED TO ICU FOR RESP DISTRESS. - Past Medical History Past Medical History: Hypertension, Anxiety, COPD, Asthma, GERD, Arthritis Additional Medical History: LUPUS - Past Surgical History Surgical History: Hysterectomy - Family History Family Medical History: Diabetes Mellitus, Cancer, [place] - Social History Does patient currently use any type of tobacco product: Yes Have you used tobacco products in the last 12 months: Yes Type of Tobacco Use: Cigarettes How many years tobacco product used: 58 Does any household member use tobacco: No Alcohol Use: None Drug Use: Prescription Drugs - Medications Home Medications: egg Allergy (Verified 06/23/18 20:21) meperidine [From Demerol] Allergy (Verified 06/23/18 20:21) FLU VIRUS VACCINE Allergy (Uncoded 06/23/18 20:21) CONTINUE taking the following medications bisoprolol fumarate 5 mg PO DAILY 06/23/18 [History] fluticasone propion-salmeterol [Advair HFA] 1 puff INHALATION BID 06/23/18 [History] pantoprazole 40 mg PO PRN PRN 06/23/18 [History] warfarin 5 mg PO Q OTHER DAY 06/23/18 [History] warfarin 10 mg PO Q OTHER DAY 06/23/18 [History] - Review of Systems Constitutional: Weakness Eyes: No Symptoms Reported ENT: No Symptoms Reported Respiratory: Shortness of Breath, SOB with Excertion, Wheezing Cardiovascular: No Symptoms Reported. denies: Edema Gastrointestinal: No Symptoms Reported Genitourinary: No Symptoms Reported Musculoskeletal: No Symptoms Reported Skin: No Symptoms Reported Neurological: Weakness - Physical Exam Vital Signs: Temperature 97.9 F Pulse Rate [Apical] 83 Pulse Rate 83 Respiratory Rate 37 Blood Pressure [Left Arm] 146/67 Blood Pressure [Right Arm] 97/55 Blood Pressure 244/108 O2 Sat by Pulse Oximetry 100 Oriented: Normal Eyes: Normal Ear: Normal Nose: Normal Throat: Normal Respiratory: RLL Diminished, LLL Diminished Cardiovascular: Tachycardia : Normal Auscultation: Bowel Sounds: Normal Palpation: Normal Tenderness: Normal Skin: Decreased Turgur Musculoskeletal: Back:Thoracic Psychiatric: Anxiety Affect: Anxious Speech Pattern: Clear, Appropriate - Assessment/Plan (1) COPD exacerbation Status: Acute Plan: ADMIT, ICU, SUPPLEMENTAL O2. REPEAT ABG, DUO NEBS. PNEUMONIA PROTOCOL. SOLU MEDROL, BUDESONIDE. BIPAP PRN (2) Hypertension Status: Chronic (3) GERD (gastroesophageal reflux disease) Status: Chronic (4) Arthritis Status: Chronic (5) Lupus Status: Acute (6) SOB (shortness of breath) Status: Acute - Allergies Allergies/Adverse Reactions: Allergies Allergy/AdvReac Type Severity Reaction Status Date / Time egg Allergy Verified 06/23/18 20:21 meperidine [From Demerol] Allergy Verified 06/23/18 20:21 FLU VIRUS VACCINE Allergy Uncoded 06/23/18 20:21
[2018-06-24] MEDS ORDERED: COUMADIN TAB 5 MG PO SCH (21:00)
[2018-06-25] MEDS: DUONEB 0.5 MG/3 MG NEB SCH ×3 (01:02→09:04)
[2018-06-25] MEDS: NS 1000 ML 1,000 ML IV SCH (06:07)
[2018-06-25 06:10] LABS: BASOPHILS % (AUTO) 0.1 % (0.2-1.0); HEMATOCRIT 33.7 % (36.0-47.0); HEMOGLOBIN 11.4 g/dL (12.0-16.0); LYMPHOCYTES # (AUTO) 0.2 X10^3/uL (1.3-2.9); LYMPHOCYTES % (AUTO) 1.9 % (21.0-51.0); MEAN CORPUSCULAR HGB CONC 33.7 g/dL (33.0-35.0); MEAN CORPUSCULAR VOLUME 89.2 fL (80.0-100.0); MEAN PLATELET VOLUME 9.5 fL (7.4-11.0); MONOCYTES # (AUTO) 0.4 x10^3/uL (0.3-0.8); MONOCYTES % (AUTO) 2.8 % (0.0-13.0); NEUTROPHILS # (AUTO) 12.1 x10^3/uL (2.2-4.8); NEUTROPHILS % (AUTO) 95.2 % (42.0-75.0); PLATELET COUNT 170 X10^3/uL (150.0-450.0); RED BLOOD COUNT 3.78 X10^6/uL (3.5-5.4); RED CELL DISTRIBUTION WIDTH 12.8 % (11.6-16.5); WHITE BLOOD COUNT 12.7 X10^3/uL (3.6-10.0)
[2018-06-25 06:45] LABS: ALBUMIN 3.3 g/dL (3.4-5.0); CALCIUM 8.8 mg/dL (8.5-10.1); CARBON DIOXIDE 23.2 mmol/L (21-32); COR CA(FOR HYPOALB) 9.4 mg/dL (8.5-10.1); CREATININE 1.16 mg/dL (0.55-1.02); TOTAL PROTEIN 6.7 g/dL (6.4-8.2)
[2018-06-25 06:59] LABS: BAND NEUTROPHILS % 2 % (0-10); PLATELET MORPHOLOGY COMMENT NORMAL (NORMAL)
[2018-06-25] MEDS: PROTONIX TAB 40 MG PO SCH (08:38)
[2018-06-25] MEDS: PEPCID TAB 20 MG PO SCH (08:38)
[2018-06-25] MEDS: ROBITUSSIN DM PO SCH (08:39)
[2018-06-25] MEDS: ZOLOFT PO SCH (08:39)
[2018-06-25] MEDS: ROCEPHIN VIAL 1 GRAM IVP SCH (08:39)
[2018-06-25] MEDS: ZEBETA TAB 5 MG PO SCH (08:40)
[2018-06-25] MEDS: PULMICORT NEB TX 0.5 MG NEB SCH (09:04)
[2018-06-25] MEDS: PLAQUENIL PO SCH (09:24)
[2018-06-25 11:10] VITALS: BP 139/61
[2018-06-25] MEDS ORDERED: COUMADIN TAB 10 MG PO SCH (21:00)
== END 2018-06-25 11:10 | disposition home or self-care (01) | DRG 189 ==
LOC: ER 19:53 → ICU 22:48
PROVIDERS: ADMIT Obstetrics & Gynecology Obstetrics; ATTEND Internal Medicine
DX: F41.8 Other specified anxiety disorders; J96.20 Acute and chronic respiratory failure, unspecified whether with hypoxia or hypercapnia; M13.89 Other specified arthritis, multiple sites; M32.9 Systemic lupus erythematosus, unspecified; I10 Essential (primary) hypertension; Z79.01 Long term (current) use of anticoagulants; Z99.81 Dependence on supplemental oxygen; J44.1 Chronic obstructive pulmonary disease with (acute) exacerbation; J20.8 Acute bronchitis due to other specified organisms
CPT/HCPCS: 36415; 36600; 51702; 71010; 71045; 80053; 80061; 81001; 82550; 82553; 82803; 83735; 84484; 85025; 85610; 85730; 87070; 87205; 93005; 94640; 94660; 96365; 96374; 96375; 97116; 97162; 97530; 99284; A4222; A4618; A7030; J0696; J1940; J2930; J7030; J7620; J7626

== ENCOUNTER 2020-06-30 11:35 | Inpatient (IN) ==
[2020-06-30] MEDS ORDERED: NORCO 5/325 MG TAB PO PRN (12:54)
[2020-06-30] MEDS ORDERED: ZOFRAN INJ 4 MG VIAL IVP PRN (12:54)
[2020-06-30 13:23] LABS: BASOPHILS # (AUTO) 0.1 X10^3/uL (0.0-0.1); BASOPHILS % (AUTO) 0.6 % (0.2-1.0); EOSINOPHILS % (AUTO) 0.1 % (0.9-2.9); HEMATOCRIT 35.8 % (36.0-47.0); HEMOGLOBIN 11.7 g/dL (12.0-16.0); LYMPHOCYTES # (AUTO) 0.5 X10^3/uL (1.3-2.9); LYMPHOCYTES % (AUTO) 4.7 % (21.0-51.0); MEAN CORPUSCULAR HEMOGLOBIN 29.1 pg (27.0-34.0); MEAN CORPUSCULAR HGB CONC 32.7 g/dL (33.0-35.0); MEAN CORPUSCULAR VOLUME 88.7 fL (80.0-100.0); MEAN PLATELET VOLUME 10.2 fL (7.4-11.0); MONOCYTES # (AUTO) 0.5 x10^3/uL (0.3-0.8); MONOCYTES % (AUTO) 4.7 % (0.0-13.0); NEUTROPHILS # (AUTO) 9.9 x10^3/uL (2.2-4.8); NEUTROPHILS % (AUTO) 89.9 % (42.0-75.0); PLATELET COUNT 156 X10^3/uL (150.0-450.0); RED BLOOD COUNT 4.03 X10^6/uL (3.5-5.4); RED CELL DISTRIBUTION WIDTH 13.2 % (11.6-16.5)
[2020-06-30 13:34] LABS: ALANINE AMINOTRANSFERASE 23 Units/L (12-78); ALBUMIN 3.1 g/dL (3.4-5.0); ALKALINE PHOSPHATASE 70 Units/L (46-116); ASPARTATE AMINO TRANSFERASE 26 Units/L (15-37); BLOOD UREA NITROGEN 21 mg/dL (7-18); CALCIUM 8.7 mg/dL (8.5-10.1); CARBON DIOXIDE 27.4 mmol/L (21-32); CHLORIDE 99 mmol/L (98-107); COR CA(FOR HYPOALB) 9.4 mg/dL (8.5-10.1); CREATININE 1.39 mg/dL (0.55-1.02); SODIUM 135 mmol/L (136-145); TOTAL PROTEIN 7.5 g/dL (6.4-8.2); eGFR NON BLACK RACES 40 (>60)
[2020-06-30 13:36] LABS: LACTIC ACID 1.3 mmol/L (0.4-2.0)
[2020-06-30] MEDS: ROCEPHIN VIAL 1 GRAM 1 G in NS 100 ML IV + SPIKE MINIBAG* 100 ML IV SCH (14:19)
[2020-06-30] MEDS: NS 1000 ML 1,000 ML IV SCH (14:20)
[2020-06-30] MEDS: PROTONIX INJ 40 MG VIAL IVP SCH ×2 (14:20→20:52)
[2020-06-30 15:02] LABS: BILIRUBIN,URINE NEGATIVE (NEGATIVE); BLOOD/HEMOGLOBIN,URINE 2+ (NEGATIVE); GLUCOSE, URINE NEGATIVE (NEGATIVE); KETONES,URINE NEGATIVE (NEGATIVE); LEUKOCYTE ESTERASE ,URINE 1+ (NEGATIVE); NITRITES,URINE NEGATIVE (NEGATIVE); PROTEIN,URINE 2+ (NEGATIVE); UROBILINOGEN,URINE NORMAL (NORMAL)
[2020-06-30 15:14] LABS: APPEARANCE,URINE CLOUDY (CLEAR); COLOR,URINE YELLOW (YELLOW); SQUAMOUS EPITHELIAL CELL,UR FEW /HPF (NEGATIVE)
[2020-06-30 15:15] LABS: BACTERIA,URINE TRACE /HPF (NEGATIVE)
[2020-06-30 15:22] VITALS: BMI 23.0
[2020-06-30] MEDS ORDERED: TYLENOL 500 MG TAB EXTRA STRENGTH PO PRN (15:31)
--- NOTE | 2020-06-30 16:24 | CT ---
HISTORYLOWER ABD PAINSTUDYABDOMEN/PELVIS W/O CONCOMPARISONNone availableTECHNIQUEAxial images through the abdomen and pelvis were performed without intravenous contrast. CT scan was performed following ALARA (As low as Reasonably Achievable).Coronal and Sagittal reformatted images were performed..FINDINGSThe lung bases demonstrate a patchy pneumonic infiltrates in the bases left more than right.The liver measuring length approximately 13 centimeters. The spleen is nonenlarged. The pancreas demonstrate no focal abnormalities, the gallbladder is distended without inflammatory changes. There is no intra or extrahepatic biliary dilatation. No adrenal masses. There bilateral normal-sized kidneys without hydronephrosis, no renal calculus. No abnormal dilated small bowel loops, no free air or free fluid the stomach is not distended, no aneurysm of the aorta, no retroperitoneal masses a normal appendix is present.Pelvis: There is no free fluid, there is pelvic relaxation, the uterus is not present, there is no adnexal masses, no pelvic adenopathy, there is sigmoid colonic diverticulosis without diverticulitis. No significant colitis, no ventral hernias.Bone windows no evidence of aggressive bone lesions. There is 4 millimeters anterolisthesis of L4 on L5 and 2 millimeters anterolisthesis of L5 on S1.IMPRESSIONBilateral pneumonic infiltrates left more than right.No acute intra-abdominal abnormality. Distended gallbladder without inflammatory changes, no gallstones.Electronically signed by: Mary Dick (June 30, 2020 16:22:32)
--- NOTE | 2020-06-30 16:24 | RAD ---
HISTORYHX COPDSTUDYCHEST, 1 VIEWCOMPARISONPrior chest films from 2018 and 2019 have not been loaded for comparison. Prior reports described chronic interstitial lung disease and COPDFINDINGSThe trachea is midline. The cardiac silhouette is unremarkable. There are bibasilar infiltrates consistent with pneumonia the upper lungs are clear there are no effusions. The bony thorax is normal. The bony thorax is unremarkable.IMPRESSIONBibasilar infiltrates consistent with pneumonia. Recommend radiographic follow-up.Electronically signed by: PEARL TRAN (June 30, 2020 16:21:49)
--- NOTE | 2020-06-30 16:27 | CT ---
CT chest without contrastIndication: Rib pain. Asthma.COMPARISONOctober 2018 CT thoracic spine.TECHNIQUEHelical images through the chest without contrast. Coronal and sagittal reformats provided.FINDINGSLimited images through the upper abdomen demonstrate hepatic steatosis. Vascular plaque is noted. The gallbladder is moderately distended. Review of bone windows demonstrate no destructive osseous lesion. Spine DJD noted.Chest: Aortic arch and branch vessels show calcifications. Heart size is prominent with small pericardial effusion. Shotty mediastinal lymph nodes noted.There is moderate COPD with ex vacuo ventricular and sulcal enlargement. Patchy ground-glass opacities in the bases with more focal consolidation in the right lung base on axial image 51 and in the left lung base on axial image 44 noted.Somewhat nodular right breast tissue compared to the left is noted. Follow-up with mammogram if not recently performed to exclude underlying lesion.IMPRESSIONBibasilar opacities, superimposed upon emphysema, with most notable consolidation left lower lung is compatible with multifocal pneumonia, possibly bronchopneumonia. Follow-up to resolution to exclude underlying lesion. Other infectious/inflammatory etiologies not excludedPericardial effusion, prominent heart size, emphysema, colonic diverticulosis and moderately distended gallbladder as above. Consider ultrasound gallbladder follow-up as needed.Electronically signed by: JIMMY GOMEZ (June 30, 2020 16:25:03)
[2020-06-30] MEDS: DUONEB 0.5 MG/3 MG (3 mL) NEB SCH ×2 (17:09→20:05)
[2020-06-30] MEDS: MORPHINE SULFATE INJ 2 MG INJ IVP PRN ×2 (17:10→20:54)
[2020-06-30] MEDS ORDERED: SALINE 3% 15 ML NEB TX NEB ONE (17:15)
[2020-06-30] MEDS ORDERED: SALINE 3% 15 ML NEB TX ONE (17:15)
[2020-06-30 17:30] LABS: AMYLASE 31 Units/L (25-115); LIPASE 72 Units/L (73-393)
[2020-06-30] MEDS ORDERED: ROBITUSSIN DM PO PRN (17:37)
--- NOTE | 2020-06-30 17:41 | DR.H&P ---
H&P - History & Physical for Day of: H&P Date: 06/30/20 - Chief Complaint Chief Complaint: fever, chills n/v, lower abdominal pain - History of Present Illness History of Present Illness: PT IS 74 WF DIRECT ADMIT FROM DR RICHARDS OFFICE AFTER PRESENTING WITH CO FEVER, CHILLS, SOB, WEAKNESS WITH CO LOWER ABDOMINAL PAIN AND N/V ONSET 1-2 DAYS. PT HAD FEVER 101 IN OFFICE WITH VOMITING. PT DENIES ANY KNOWN COVID EXPOSURE. PT HAD PHENERGAN 12.5 IM IN OFFICE [facility]. PT REPORTS FALL 2 DAYS AGO AND HAS BEEN HURTING IN PELVIS SINCE FALL. PT HAS PMH OF LUPUS, COPD, HTN, OA. PT HAS HX OF PE AND ON STAFFING EXECUTIVE COUMADIN THERAPY WITH INR 3.4 IN OFFICE. PT ADMITTED FOR TREATMENT OF ACUTE ILLNESS, RO COVID 19 - Past Medical History Past Medical History: Hypertension, Anxiety, COPD, Asthma, GERD, Arthritis Additional Medical History: LUPUS - Past Surgical History Surgical History: Abdominal Surgery - Family History Family Medical History: [place], Coronary Artery Disease, Hypertension - Social History Does patient currently use any type of tobacco product: Yes Have you used tobacco products in the last 12 months: Yes Type of Tobacco Use: Cigarettes How many years tobacco product used: 60 Packs per day or dips/chews per day: 1 Does any household member use tobacco: No Alcohol Use: None Drug Use: None Prescription drug monitoring program results: PDMP reviewed and no concerns identified - Medications Home Medications: egg Allergy (Verified 06/23/18 20:21) meperidine [From Demerol] Allergy (Verified 06/23/18 20:21) FLU VIRUS VACCINE Allergy (Uncoded 06/23/18 20:21) - Review of Systems Constitutional: Fever, Chills, Weakness Eyes: No Symptoms Reported ENT: Nose Congestion Respiratory: Cough, Shortness of Breath Gastrointestinal: Nausea, Vomiting, Abdominal Pain Genitourinary: No Symptoms Reported Musculoskeletal: Back Pain, Other (PAIN IN PELVIS) Skin: No Symptoms Reported Neurological: No Symptoms Reported - Physical Exam Vital Signs: Temperature 101.7 F Pulse Rate [Right Brachial] 91 Respiratory Rate 18 Blood Pressure [Left Arm] 153/66 Blood Pressure [Right Arm] 97/55 Blood Pressure 139/61 O2 Sat by Pulse Oximetry 97 Oriented: Normal Eyes: Normal Ear: Normal Nose: Normal Throat: Dry Respiratory: Wheezes Throughout, RML Diminished, RLL Diminished, LML Diminished, LLL Diminished Cardiovascular: negative: Edema : Normal Auscultation: Bowel Sounds: Normal Palpation: Normal Tenderness: Diffuse, RLQ, LUQ, Suprapubic Skin: Decreased Turgur Musculoskeletal: Back:Thoracic, Back:Lumbar Psychiatric: Anxiety Affect: Anxious Speech Pattern: Clear, Appropriate - Assessment/Plan (1) SOB (shortness of breath) Status: Acute Plan: ADMIT, CXR ON ADMISSION. COVID 19 SWAB, FLU SWAB. BLOOD AND URINE CULTURE, LACTIC ACID LEVEL. RESP CONSULT, IV ATBX THERAPY. CT ABD PELVIS, PAIN CONTROL, IV HYDRATION. SUPPLEMENTAL O2, STRICT I&OS (2) Acute abdominal pain Status: Acute (3) UTI (urinary tract infection) Status: Acute (4) COPD (chronic obstructive pulmonary disease) Qualifiers: COPD type: COPD with acute exacerbation Qualified Code(s): J44.1 - Chronic obstructive pulmonary disease with (acute) exacerbation Status: Chronic (5) Hypertension Status: Chronic (6) Lupus Status: Acute (7) nursing home (current) use of anticoagulants Status: Acute (8) Fever Status: Acute - Allergies Allergies/Adverse Reactions: Allergies Allergy/AdvReac Type Severity Reaction Status Date / Time egg Allergy Verified 06/23/18 20:21 meperidine [From Demerol] Allergy Verified 06/23/18 20:21 FLU VIRUS VACCINE Allergy Uncoded 06/23/18 20:21
[2020-06-30] MEDS: ZITHROMAX INJ 500 MG VIAL 250 MG in D5W 250 ML IV 250 ML IV SCH (18:52)
[2020-06-30] MEDS ORDERED: PULMICORT NEB TX 0.5 MG NEB ONE (19:43)
[2020-06-30] MEDS: PULMICORT NEB TX 0.5 MG NEB SCH (20:05)
[2020-07-01] MEDS: DUONEB 0.5 MG/3 MG (3 mL) NEB SCH ×6 (00:33→21:55)
[2020-07-01] MEDS: NS 1000 ML 1,000 ML IV SCH ×2 (05:35→15:48)
[2020-07-01 08:08] LABS: BASOPHILS % (AUTO) 0.5 % (0.2-1.0); EOSINOPHILS % (AUTO) 0.6 % (0.9-2.9); HEMATOCRIT 29.4 % (36.0-47.0); LYMPHOCYTES # (AUTO) 0.6 X10^3/uL (1.3-2.9); LYMPHOCYTES % (AUTO) 8.6 % (21.0-51.0); MEAN CORPUSCULAR HEMOGLOBIN 30.2 pg (27.0-34.0); MEAN CORPUSCULAR HGB CONC 33.1 g/dL (33.0-35.0); MEAN CORPUSCULAR VOLUME 91.2 fL (80.0-100.0); MEAN PLATELET VOLUME 10.7 fL (7.4-11.0); MONOCYTES # (AUTO) 0.5 x10^3/uL (0.3-0.8); MONOCYTES % (AUTO) 7.8 % (0.0-13.0); NEUTROPHILS # (AUTO) 5.8 x10^3/uL (2.2-4.8); NEUTROPHILS % (AUTO) 82.5 % (42.0-75.0); PLATELET COUNT 140 X10^3/uL (150.0-450.0); RED BLOOD COUNT 3.22 X10^6/uL (3.5-5.4); RED CELL DISTRIBUTION WIDTH 13.3 % (11.6-16.5)
[2020-07-01 08:17] LABS: ALANINE AMINOTRANSFERASE 12 Units/L (12-78); ALBUMIN 2.3 g/dL (3.4-5.0); ALKALINE PHOSPHATASE 52 Units/L (46-116); ASPARTATE AMINO TRANSFERASE 17 Units/L (15-37); BLOOD UREA NITROGEN 18 mg/dL (7-18); CALCIUM 7.9 mg/dL (8.5-10.1); CARBON DIOXIDE 26.1 mmol/L (21-32); CHLORIDE 104 mmol/L (98-107); COR CA(FOR HYPOALB) 9.3 mg/dL (8.5-10.1); CREATININE 1.32 mg/dL (0.55-1.02); HEMOGLOBIN 9.7 g/dL (12.0-16.0); SODIUM 138 mmol/L (136-145); eGFR NON BLACK RACES 42 (>60)
[2020-07-01] MEDS: PROTONIX INJ 40 MG VIAL IVP SCH ×2 (08:20→21:31)
[2020-07-01] MEDS: ROCEPHIN VIAL 1 GRAM 1 G in NS 100 ML IV + SPIKE MINIBAG* 100 ML IV SCH (08:20)
[2020-07-01] MEDS: PULMICORT NEB TX 0.5 MG NEB SCH ×2 (08:35→21:55)
--- NOTE | 2020-07-01 09:31 | RAD ---
HISTORYPNEUMONIASTUDYCHEST, 1 [id number]/2021FINDINGSThe trachea is midline. Normal heart size. There is increased density of right lower lobe alveolar radiopacity. There is also a left lower lobe radiopacity with effacement of the diaphragm.IMPRESSIONMild interval worsening, increase density of the right lower lobe infiltrate. Unchanged dense left lower lobe pneumonia.Electronically signed by: Mary Dick (July 01, 2020 09:29:48)
[2020-07-01] MEDS: SOLU-Medrol 40 MG VIAL IVP SCH ×3 (12:26→21:34)
[2020-07-01] MEDS ORDERED: INFeD or DEXFERRUM 25 MG in NS 100 ML IV 100 ML IV ONE (14:00)
[2020-07-01] MEDS ORDERED: INFED OR DEXFERRUM IV ONE (15:00)
[2020-07-01] MEDS ORDERED: NS IV ONE (15:00)
[2020-07-01] MEDS ORDERED: INFeD or DEXFERRUM 975 MG in NS 500 ML IV 500 ML IV ONE (15:00)
--- NOTE | 2020-07-01 16:17 | CT ---
EXAM: THORACIC SPINE CTHISTORY: Back pain. Fall injury.TECHNIQUE: Spiral axial CT images are obtained through the thoracic spine without the administration of intravenous contrast or intrathecal contrast. Sagittal and coronal reconstruction images are reformatted.DOSIMETRY: Total DLP 652.6 mGycm; CTDI 19 mGyCOMPARISON: None available.FINDINGS:There is diffuse osteopenia. There is no vertebral fracture seen. There is no gross malalignment, spondylolisthesis, or retrolisthesis seen. There is mild middle thoracic dextroscoliosis which may reflect chronic degenerative changes; rule out muscle spasm.T3-T12: Mild to moderate DDD marked by anterior/lateral marginal osteophytosis; no gross posterior disc bulge or marginal osteophytes seen.There is no gross disc herniation seen. Please note that subtle soft tissue abnormalities can be obscured in this radiographic setting. Consider follow-up MRI if clinically warranted.There is severe thoracic aortic atherosclerosis. There is consolidative atelectasis and/or infiltrates with air bronchograms seen in bilateral lower lobes, left greater than right (partially imaged). Consider follow-up dedicated imaging as clinically warranted.IMPRESSION:1. No gross vertebral fracture or malalignment seen.2. Diffuse osteopenia.3. T3-T12: Mild to moderate DDD marked by anterior/lateral marginal osteophytosis; no gross posterior disc bulge or marginal osteophytes seen.4. Mild middle thoracic dextroscoliosis which may reflect chronic degenerative changes; rule out muscle spasm.5. No gross disc herniation seen.6. Consolidative atelectasis and/or infiltrates with air bronchograms seen in bilateral lower lobes, left greater than right (partially imaged). Consider follow-up dedicated imaging as clinically warranted.7. Consider follow-up evaluation with MRI if symptoms persist or worsen.Electronically signed by: Wally Ruiz (July 01, 2020 16:16:11)
--- NOTE | 2020-07-01 16:40 | CT ---
EXAM: LUMBAR SPINE CTHISTORY: Back pain. Fall injury.TECHNIQUE: Spiral axial CT images are obtained through the lumbar spine without the administration of intravenous or intrathecal contrast. Sagittal and coronal reconstruction images are reformatted.DOSIMETRY: Total DLP 847.9 mGycm; CTDI 25.1 mGyCOMPARISON: None available.FINDINGS:There is no vertebral fracture seen. There is no gross retrolisthesis, or spondylolysis seen. There is lumbar levoscoliosis which may reflect chronic degenerative change and/or muscle spasm.T11-L2: There is mild DDD marked by anterior/lateral marginal osteophytosis. There is no gross disc herniation seen. Please note that subtle soft tissue abnormalities can be obscured in this radiographic setting. Consider follow-up MRI if clinically warranted.L2/3: There is DDD marked by mild disc space narrowing, chronic anterior/lateral disc bulge/marginal osteophyte complex, and chronic appearing diffuse posterior disc bulge (projecting 6 mm AP) encroaching upon the anterior thecal sac, lateral recesses, with potential for mild L3 nerve root impingements. Sagittal image 35; axial image 45?48.L3/4: Unremarkable.L4/5: bilateral hypertrophic facet joint DJD with resultant 8.7 mm (grade 1) spondylolisthesis, with lateral recess stenosis and potential for L5 nerve root impingements. Sagittal image 30?45; axial image 61?67.L5/S1: DDD, marked by asymmetrical, left-sided predominant, disc space narrowing, and left-sided hypertrophic facet joint DJD, contributing to approximately 6 mm (grade 1) spondylolisthesis and moderately severe left neuroforaminal stenosis with potential for mild exiting left L5 nerve root impingement. Sagittal image 29?45.There is severe aortoiliac atherosclerosis. Consolidative changes with air bronchograms are seen in bilateral posterior inferior lower lobes; DDx includes atelectasis and/or consolidative pneumonia in the appropriate clinical setting. Clinical correlation is advised. There are small bilateral pleural effusions, right greater than left.Approximately 1.5 cm x 1.3 cm left adrenal nodule (6.5HU) which statistically probably represents an adrenal adenoma. Consider follow-up MRI for further characterization as clinically warranted.IMPRESSION:1. No gross vertebral fracture seen.2. No gross disc herniation seen.3. L4/5: Bilateral hypertrophic facet joint DJD with resultant 8.7 mm (grade 1) spondylolisthesis, with lateral recess stenosis and potential for L5 nerve root impingements. Sagittal image 30?45; axial image 61?67.4. L5/S1: DDD and left-sided hypertrophic facet joint DJD, contributing to approximately 6 mm (grade 1) spondylolisthesis and moderately severe left neuroforaminal stenosis with potential for mild exiting left L5 nerve root impingement. Sagittal image 29?45.5. Consider follow-up evaluation and MRI if symptoms persist or worsen.6. Consolidative changes with air bronchograms are seen in bilateral posterior inferior lower lobes; DDx includes atelectasis and/or consolidative pneumonia in the appropriate clinical setting. Clinical correlation is advised.7. Small bilateral pleural effusions, right greater than left.8. Approximately 1.5 cm x 1.3 cm left adrenal nodule (6.5HU) which statistically probably represents an adrenal adenoma. Consider follow-up MRI for further characterization as clinically warranted.Electronically signed by: Wally Ruiz (July 01, 2020 16:38:04)
[2020-07-01] MEDS: ZITHROMAX INJ 500 MG VIAL 250 MG in D5W 250 ML IV 250 ML IV SCH (21:32)
[2020-07-02] MEDS: DUONEB 0.5 MG/3 MG (3 mL) NEB SCH ×6 (00:25→21:25)
[2020-07-02] MEDS: NS 1000 ML 1,000 ML IV SCH ×3 (05:00→17:25)
[2020-07-02] MEDS: SOLU-Medrol 40 MG VIAL IVP SCH ×3 (05:37→21:44)
[2020-07-02 06:10] LABS: BASOPHILS % (AUTO) 0.4 % (0.2-1.0); HEMATOCRIT 28.2 % (36.0-47.0); HEMOGLOBIN 9.5 g/dL (12.0-16.0); LYMPHOCYTES # (AUTO) 0.1 X10^3/uL (1.3-2.9); LYMPHOCYTES % (AUTO) 2.1 % (21.0-51.0); MEAN CORPUSCULAR HEMOGLOBIN 29.9 pg (27.0-34.0); MEAN CORPUSCULAR HGB CONC 33.8 g/dL (33.0-35.0); MEAN CORPUSCULAR VOLUME 88.3 fL (80.0-100.0); MEAN PLATELET VOLUME 9.6 fL (7.4-11.0); MONOCYTES # (AUTO) 0.1 x10^3/uL (0.3-0.8); MONOCYTES % (AUTO) 2.5 % (0.0-13.0); NEUTROPHILS # (AUTO) 5.6 x10^3/uL (2.2-4.8); PLATELET COUNT 157 X10^3/uL (150.0-450.0); RED BLOOD COUNT 3.19 X10^6/uL (3.5-5.4); RED CELL DISTRIBUTION WIDTH 13.6 % (11.6-16.5); WHITE BLOOD COUNT 5.9 X10^3/uL (3.6-10.0)
[2020-07-02 06:19] LABS: CARBON DIOXIDE 22.2 mmol/L (21-32); COR CA(FOR HYPOALB) 9.6 mg/dL (8.5-10.1); CREATININE 1.15 mg/dL (0.55-1.02); TOTAL PROTEIN 5.9 g/dL (6.4-8.2)
--- NOTE | 2020-07-02 06:19 | CT ---
HISTORYPneumoniaSTUDYCT chest with contrastTechnique: Axial post-contrast images with coronal and sagittal reformats. Dose reduction procedures were used with mA/kv adjusted for body size.[id number]/2021FINDINGSExamination of the mediastinum demonstrated no evidence for mediasti nal masses, enlarged mediastinal or enlarged hilar adenopathy or significant aortic abnormality. Trac e pericardial effusion is unchanged. Bilateral small pleural effusions are present right greater than left. No significant chest wall abnormality is identified. Those portions of the upper abdominal org ans visualized appeared within normal limits. Examination of the lung santizo demonstrated changes of centrilobular emphysema most prominent in the upper lobes. Right basilar infiltrate with air bronchog jose a is unchanged from the prior examination. Left basilar alveolar infiltrate also unchanged. No nod ules, masses, peribronchial thickening, or bronchiectasis identified.IMPRESSIONNo change bilateral lo wer lobe alveolar infiltrates most consistent with bibasilar pneumonia. Follow-up until complete reso lution is recommended in order to exclude underlying neoplasm.Centrilobular emphysemaTrace pericardia l effusionElectronically signed by: CHELSEA CHATTERJEE (July 02, 2020 06:17:01)
[2020-07-02 06:44] LABS: BAND NEUTROPHILS % 4 % (0-10); PLATELET MORPHOLOGY COMMENT NORMAL (NORMAL)
[2020-07-02] MEDS: PULMICORT NEB TX 0.5 MG NEB SCH ×2 (08:50→21:25)
[2020-07-02] MEDS: PROTONIX INJ 40 MG VIAL IVP SCH ×2 (08:54→21:44)
[2020-07-02] MEDS: ROCEPHIN VIAL 1 GRAM 1 G in NS 100 ML IV + SPIKE MINIBAG* 100 ML IV SCH (08:54)
[2020-07-02] MEDS ORDERED: NICOTINE PATCH TD SCH (15:00)
[2020-07-02] MEDS: HEMOCYTE-PLUS PO SCH (15:08)
[2020-07-02] MEDS: ZITHROMAX INJ 500 MG VIAL 250 MG in D5W 250 ML IV 250 ML IV SCH (21:44)
[2020-07-03] MEDS: DUONEB 0.5 MG/3 MG (3 mL) NEB SCH ×3 (00:38→08:23)
[2020-07-03] MEDS: SOLU-Medrol 40 MG VIAL IVP SCH (05:52)
[2020-07-03] MEDS: NS 1000 ML 1,000 ML IV SCH ×2 (06:08→09:43)
[2020-07-03 06:57] LABS: BASOPHILS # (AUTO) 0.1 X10^3/uL (0.0-0.1); BASOPHILS % (AUTO) 0.6 % (0.2-1.0); HEMATOCRIT 26.7 % (36.0-47.0); HEMOGLOBIN 8.9 g/dL (12.0-16.0); LYMPHOCYTES # (AUTO) 0.3 X10^3/uL (1.3-2.9); LYMPHOCYTES % (AUTO) 2.6 % (21.0-51.0); MEAN CORPUSCULAR HEMOGLOBIN 29.7 pg (27.0-34.0); MEAN CORPUSCULAR HGB CONC 33.5 g/dL (33.0-35.0); MEAN CORPUSCULAR VOLUME 88.7 fL (80.0-100.0); MEAN PLATELET VOLUME 9.7 fL (7.4-11.0); MONOCYTES # (AUTO) 0.3 x10^3/uL (0.3-0.8); MONOCYTES % (AUTO) 2.9 % (0.0-13.0); NEUTROPHILS # (AUTO) 9.9 x10^3/uL (2.2-4.8); NEUTROPHILS % (AUTO) 93.9 % (42.0-75.0); PLATELET COUNT 177 X10^3/uL (150.0-450.0); RED BLOOD COUNT 3.01 X10^6/uL (3.5-5.4); RED CELL DISTRIBUTION WIDTH 13.4 % (11.6-16.5); WHITE BLOOD COUNT 10.5 X10^3/uL (3.6-10.0)
[2020-07-03 07:12] LABS: ALANINE AMINOTRANSFERASE 20 Units/L (12-78); ALBUMIN 2.1 g/dL (3.4-5.0); ALKALINE PHOSPHATASE 59 Units/L (46-116); BLOOD UREA NITROGEN 16 mg/dL (7-18); CALCIUM 8.5 mg/dL (8.5-10.1); CARBON DIOXIDE 24.1 mmol/L (21-32); CHLORIDE 110 mmol/L (98-107); COR NA(FOR HYPERGLY) 147 mmol/L (136-145); CREATININE 0.95 mg/dL (0.55-1.02); SODIUM 145 mmol/L (136-145); TOTAL PROTEIN 5.8 g/dL (6.4-8.2); eGFR NON BLACK RACES > 60 (>60)
[2020-07-03 07:24] LABS: ASPARTATE AMINO TRANSFERASE 26 Units/L (15-37)
[2020-07-03 07:29] LABS: BAND NEUTROPHILS % 3 % (0-10); PLATELET MORPHOLOGY COMMENT NORMAL (NORMAL)
[2020-07-03] MEDS ORDERED: POTASSIUM CHL 60 MEQ/NS 0.45% 500 ML IV PRN (07:37)
[2020-07-03] MEDS ORDERED: POTASSIUM CHLORIDE LIQ 20 MEQ UDC PO PRN (07:37)
[2020-07-03] MEDS ORDERED: MAGNESIUM SULFATE 1 GRAM/100 mL PREMIX 1 GM/100 ML BAG IV PRN (07:37)
[2020-07-03] MEDS ORDERED: K-RIDER 10 MEQ/NS 100 ML 10 MEQ/100 ML BAG IV PRN (07:37)
[2020-07-03] MEDS ORDERED: K-DUR TAB 20 MEQ PO PRN (07:37)
[2020-07-03] MEDS ORDERED: POTASSIUM CHL 40 MEQ/NS 0.45% 500 ML IV PRN (07:37)
[2020-07-03] MEDS ORDERED: KLOR-CON PO PRN (07:37)
[2020-07-03] MEDS ORDERED: MICRO K EXTEN CAP 10 MEQ PO PRN (07:37)
[2020-07-03] MEDS: PULMICORT NEB TX 0.5 MG NEB SCH (08:23)
[2020-07-03] MEDS: HEMOCYTE-PLUS PO SCH (09:05)
[2020-07-03] MEDS: PROTONIX INJ 40 MG VIAL IVP SCH (09:05)
[2020-07-03] MEDS: ROCEPHIN VIAL 1 GRAM 1 G in NS 100 ML IV + SPIKE MINIBAG* 100 ML IV SCH (09:05)
[2020-07-03] MEDS ORDERED: PREDNISONE TAB 10 MG PO SCH (11:00)
[2020-07-03] MEDS ORDERED: CARAFATE ORAL SUSP PO SCH (11:30)
[2020-07-03 12:20] VITALS: BP 159/70
[2020-07-03] MEDS ORDERED: PREDNISONE TAB 20 MG PO ONE (14:54)
[2020-07-03] MEDS ORDERED: LEVAQUIN TAB 500 MG ONE (14:54)
[2020-07-06] MEDS ORDERED: PREDNISONE TAB 20 MG PO SCH (09:00)
[2020-07-09] MEDS ORDERED: PREDNISONE TAB 10 MG PO SCH (09:00)
== END 2020-07-03 15:15 | disposition home or self-care (01) | DRG 194 ==
LOC: MED/SURG → OBSVTOIN 11:58
PROVIDERS: ADMIT Internal Medicine; ATTEND Internal Medicine
DX: R06.02 Shortness of breath; L93.0 Discoid lupus erythematosus; Z20.822 Contact with and (suspected) exposure to COVID-19; E87.1 Hypo-osmolality and hyponatremia; B96.29 Other Escherichia coli [E. coli] as the cause of diseases classified elsewhere; R26.89 Other abnormalities of gait and mobility; R07.81 Pleurodynia; Z79.01 Long term (current) use of anticoagulants; N39.0 Urinary tract infection, site not specified; E86.0 Dehydration; M54.6 Pain in thoracic spine; Z91.81 History of falling; K21.9 Gastro-esophageal reflux disease without esophagitis; M54.5 Low back pain; J18.8 Other pneumonia, unspecified organism; J44.1 Chronic obstructive pulmonary disease with (acute) exacerbation; R53.1 Weakness; I10 Essential (primary) hypertension; D50.8 Other iron deficiency anemias; R10.84 Generalized abdominal pain

== ENCOUNTER 2021-12-06 08:51 | Inpatient (IN) ==
[2021-12-06] MEDS ORDERED: TUSSIONEX PENNKINETIC SUSP PO PRN (10:00)
[2021-12-06] MEDS: ROBITUSSIN DM PO SCH ×4 (10:17→20:38)
[2021-12-06] MEDS: PROTONIX INJ 40 MG VIAL IVP SCH ×2 (10:17→20:38)
[2021-12-06] MEDS: NS 1,000 ML IV 1,000 ML IV SCH (10:18)
[2021-12-06] MEDS: LEVAQUIN PREMIX IV 500 MG 500 MG/100 ML BAG IV SCH (10:21)
[2021-12-06 10:31] VITALS: BMI 19.5
[2021-12-06 10:38] LABS: BASOPHILS # (AUTO) 0.1 X10^3/uL (0.0-0.1); BASOPHILS % (AUTO) 0.8 % (0.2-1.0); EOSINOPHILS # (AUTO) 0.2 x10^3/uL (0.0-0.2); EOSINOPHILS % (AUTO) 2.3 % (0.9-2.9); HEMATOCRIT 32.4 % (36.0-47.0); HEMOGLOBIN 11.2 g/dL (12.0-16.0); LYMPHOCYTES % (AUTO) 14.8 % (21.0-51.0); MEAN CORPUSCULAR HEMOGLOBIN 30.8 pg (27.0-34.0); MEAN CORPUSCULAR HGB CONC 34.6 g/dL (33.0-35.0); MEAN PLATELET VOLUME 9.4 fL (7.4-11.0); MONOCYTES # (AUTO) 0.5 x10^3/uL (0.3-0.8); MONOCYTES % (AUTO) 6.4 % (0.0-13.0); NEUTROPHILS # (AUTO) 5.4 x10^3/uL (2.2-4.8); NEUTROPHILS % (AUTO) 75.7 % (42.0-75.0); RED BLOOD COUNT 3.64 X10^6/uL (3.5-5.4); RED CELL DISTRIBUTION WIDTH 13.5 % (11.6-16.5); WHITE BLOOD COUNT 7.1 X10^3/uL (3.6-10.0)
[2021-12-06 10:46] LABS: INR 1.68 (0.8-1.3)
[2021-12-06 11:06] LABS: ALANINE AMINOTRANSFERASE 31 Units/L (12-78); ALBUMIN 3.3 g/dL (3.4-5.0); ALKALINE PHOSPHATASE 67 Units/L (46-116); ASPARTATE AMINO TRANSFERASE 34 Units/L (15-37); BLOOD UREA NITROGEN 20 mg/dL (7-18); CALCIUM 8.2 mg/dL (8.5-10.1); CARBON DIOXIDE 30.2 mmol/L (21-32); CHLORIDE 106 mmol/L (98-107); COR CA(FOR HYPOALB) 8.8 mg/dL (8.5-10.1); COR NA(FOR HYPERGLY) 142 mmol/L (136-145); CREATINE KINASE 97 Units/L (26-192); CREATININE 0.94 mg/dL (0.55-1.02); MAGNESIUM 1.6 mg/dL (1.7-2.9); SODIUM 142 mmol/L (136-145); TOTAL PROTEIN 6.4 g/dL (6.4-8.2); eGFR NON BLACK RACES > 60 (>60)
[2021-12-06 11:47] LABS: ABG BASE EXCESS 5.6 mmol/L (-2.0-2.0); ABG HCO3 29.8 mmol/L (22-26)
[2021-12-06 11:51] LABS: IRON 27 ug/dL (50-175)
[2021-12-06] MEDS: DUONEB 0.5 MG/3 MG (3 mL) NEB SCH ×4 (13:00→21:00)
--- NOTE | 2021-12-06 13:17 | RAD ---
HISTORYRT RIB PAINSTUDYRIB SERIES three view right with AP [id number]/2022FINDINGSThe cardiomediastinal silhouette is unremarkable. No acute airspace disease or effusion. The bony thorax is unremarkable.Right 7-10 rib fractures. No underlying pneumothorax.IMPRESSION1. No acute cardiopulmonary process.2. Right 7-10 rib fractures.Electronically signed by: CHELSEA CHATTERJEE (Dec 06, 2021 13:15:55)
[2021-12-06] MEDS: PULMICORT NEB TX 0.5 MG NEB SCH ×2 (14:08→21:00)
[2021-12-06] MEDS ORDERED: K-RIDER 10 MEQ/NS 100 ML 10 MEQ/100 ML BAG IV PRN (15:58)
[2021-12-06] MEDS ORDERED: KLOR-CON PO PRN (15:58)
[2021-12-06] MEDS ORDERED: MICRO K EXTEN CAP 10 MEQ PO PRN (15:58)
[2021-12-06] MEDS ORDERED: POTASSIUM CHL 60 MEQ/NS 0.45% 500 ML IV PRN (15:58)
[2021-12-06] MEDS ORDERED: POTASSIUM CHLORIDE LIQ 20 MEQ UDC PO PRN (15:58)
[2021-12-06] MEDS ORDERED: POTASSIUM CHL 40 MEQ/NS 0.45% 500 ML IV PRN (15:58)
[2021-12-06] MEDS ORDERED: K-DUR TAB 20 MEQ PO PRN (15:58)
[2021-12-06] MEDS ORDERED: MAGNESIUM SULFATE 1 GRAM/100 mL PREMIX 1 G/100 ML BAG IV ONE (15:59)
[2021-12-06] MEDS ORDERED: NS 100 ML IV 100 ML with VENOFER 400 MG IV NR ×2 (16:00)
[2021-12-06] MEDS: MAGNESIUM SULFATE 1 GRAM/100 mL PREMIX 1 G/100 ML BAG IV PRN ×2 (16:01→20:41)
[2021-12-06] MEDS ORDERED: TYLENOL 325 MG TAB PO PRN (16:24)
[2021-12-06] MEDS ORDERED: TORADOL 15 MG VIAL IVP ONE (17:54)
--- NOTE | 2021-12-06 17:58 | DR.H&P ---
H&P - History & Physical for Day of: H&P Date: 12/06/21 - Chief Complaint Chief Complaint: FALL, RIGHT RIB PAIN, CCC WITH SOB - History of Present Illness History of Present Illness: PT IS 76 WF FAILED OUTPT THERAPY FOR COPD EXACERBATION WITH REPORTS OF INCREASED WEAKNESS AND FALL WITH INTRACTABLE RIGHT RIB PAIN. PT HAS TAKEN PO ANTIBIOTICS AND HAD ROCEPHIN AND KENALOG INJECTION, USING DUO NEBS AT HOME WITHOUT IMPROVEMENT. PT HAS HAD MULTPILE FALLS RECENTLY DUE TO INCREASED WEAKNESS AND SOB. PT HAD PMH OF HTN, COPD, RESP FAILURE, ANEMIA, GERD, OA, LUPUS AND WADE. PT ADMITTED FOR ACUTE ILLNESS. - Past Medical History Past Medical History: Hypertension, Anxiety, COPD, Asthma, GERD, Arthritis (Rheumatoid) Additional Medical History: LUPUS - Past Surgical History Surgical History: Abdominal Surgery, Hysterectomy - Family History Family Medical History: NE, Coronary Artery Disease, Hypertension - Social History Does patient currently use any type of tobacco product: Yes Have you used tobacco products in the last 12 months: Yes Type of Tobacco Use: Cigarettes How many years tobacco product used: 60 Does any household member use tobacco: Yes Alcohol Use: None Drug Use: None - Medications Home Medications: meperidine [From Demerol] Allergy (Verified 10/13/21 10:35) FLU VIRUS VACCINE Allergy (Uncoded 02/25/21 11:30) - Review of Systems Constitutional: Chills, Weakness, Malaise Eyes: No Symptoms Reported ENT: Nose Congestion, Throat Pain Respiratory: Shortness of Breath, SOB with Excertion, Sputum, Wheezing Cardiovascular: Palpitations Gastrointestinal: Nausea Genitourinary: Frequency Musculoskeletal: Back Pain, Leg Pain Skin: Wound (LLE SKIN TEAR, BILATERAL UPPER ARMS SKIN TEARS) - Physical Exam Vital Signs: Temperature 98.2 F Pulse Rate [Right Brachial] 97 Pulse Rate 88 Respiratory Rate 18 Blood Pressure [Left Arm] 140/60 Blood Pressure [Right Arm] 131/63 Blood Pressure 111/70 O2 Sat by Pulse Oximetry 90 Oriented: Normal Eyes: Normal Ear: Normal Nose: Discharge Throat: Red, Exudate Respiratory: Wheezes Throughout, RLL Diminished, LLL Diminished Cardiovascular: Tachycardia. negative: Edema : Normal Auscultation: Bowel Sounds: Normal Palpation: Normal Tenderness: Epigastric, Mild Skin: Decreased Turgur, Wound, Bruising (SCATTERED BRUISED TO BILATERAL UPPER AND LOWER EXTREMITIES, LLE SKIN TEAR, LUE SKIN TEAR) Musculoskeletal: Tender (RIGHT LATERAL RIB TENDERNESS), Motor Deficit Psychiatric: Anxiety Mood Description: Anxious Affect: Anxious Speech Pattern: Clear, Appropriate - Assessment/Plan (1) COPD exacerbation Status: Acute Plan: ADMIT, SERIAL EKG AND CE, RESP THERAPY AND SUPPLEMENTAL O2. RESP PANEL ON ADMISSION, IV HYDRATION. DAILY PT/INR, ADMISSION LABS, SPUTUM CULTURE. CXR WITH RIB SERIES ON ADMISSION. PAIN CONTROL, VERIFY HOME MEDICATION. IV ATBX THERAPY, IV SOLU MEDROL (2) Right rib fracture Status: Acute (3) Hypertension Status: Chronic (4) GERD (gastroesophageal reflux disease) Status: Chronic (5) Lupus Status: Acute (6) technician terminal and repeater (current) use of anticoagulants Status: Acute - Allergies Allergies/Adverse Reactions: Allergies Allergy/AdvReac Type Severity Reaction Status Date / Time meperidine [From Demerol] Allergy Verified 10/13/21 10:35 FLU VIRUS VACCINE Allergy Uncoded 02/25/21 11:30
[2021-12-06] MEDS: NICOTINE PATCH TD SCH (18:04)
[2021-12-06] MEDS ORDERED: ZOLOFT ONE (20:09)
[2021-12-06] MEDS: ZOLOFT PO SCH (20:37)
[2021-12-07 04:54] LABS: BASOPHILS # (AUTO) 0.1 X10^3/uL (0.0-0.1); BASOPHILS % (AUTO) 0.8 % (0.2-1.0); EOSINOPHILS # (AUTO) 0.1 x10^3/uL (0.0-0.2); EOSINOPHILS % (AUTO) 1.7 % (0.9-2.9); HEMATOCRIT 27.5 % (36.0-47.0); HEMOGLOBIN 9.8 g/dL (12.0-16.0); LYMPHOCYTES % (AUTO) 13.4 % (21.0-51.0); MEAN CORPUSCULAR HEMOGLOBIN 31.3 pg (27.0-34.0); MEAN CORPUSCULAR HGB CONC 35.6 g/dL (33.0-35.0); MEAN CORPUSCULAR VOLUME 87.8 fL (80.0-100.0); MEAN PLATELET VOLUME 9.4 fL (7.4-11.0); MONOCYTES # (AUTO) 0.6 x10^3/uL (0.3-0.8); MONOCYTES % (AUTO) 7.8 % (0.0-13.0); NEUTROPHILS # (AUTO) 5.6 x10^3/uL (2.2-4.8); NEUTROPHILS % (AUTO) 76.3 % (42.0-75.0); RED BLOOD COUNT 3.13 X10^6/uL (3.5-5.4); RED CELL DISTRIBUTION WIDTH 13.3 % (11.6-16.5); WHITE BLOOD COUNT 7.3 X10^3/uL (3.6-10.0)
[2021-12-07] MEDS: NS 1,000 ML IV 1,000 ML IV SCH ×3 (05:21→14:40)
[2021-12-07 05:25] LABS: ALANINE AMINOTRANSFERASE 24 Units/L (12-78); ALBUMIN 2.7 g/dL (3.4-5.0); ALKALINE PHOSPHATASE 63 Units/L (46-116); ASPARTATE AMINO TRANSFERASE 25 Units/L (15-37); BLOOD UREA NITROGEN 20 mg/dL (7-18); CALCIUM 7.8 mg/dL (8.5-10.1); CARBON DIOXIDE 27.6 mmol/L (21-32); CHLORIDE 108 mmol/L (98-107); COR CA(FOR HYPOALB) 8.8 mg/dL (8.5-10.1); COR NA(FOR HYPERGLY) 142 mmol/L (136-145); CREATINE KINASE 74 Units/L (26-192); CREATININE 1.06 mg/dL (0.55-1.02); MAGNESIUM 2.2 mg/dL (1.7-2.9); SODIUM 141 mmol/L (136-145); TOTAL PROTEIN 5.4 g/dL (6.4-8.2); eGFR NON BLACK RACES 54 (>60)
[2021-12-07] MEDS ORDERED: ZOLOFT ONE (08:19)
[2021-12-07] MEDS: PROTONIX INJ 40 MG VIAL IVP SCH ×2 (08:22→20:26)
[2021-12-07] MEDS: ROBITUSSIN DM PO SCH ×4 (08:23→20:26)
[2021-12-07] MEDS: LEVAQUIN PREMIX IV 500 MG 500 MG/100 ML BAG IV SCH (08:24)
[2021-12-07] MEDS: ZOLOFT PO SCH (08:25)
[2021-12-07] MEDS: COUMADIN TAB 7.5 MG (JANTOVEN) PO SCH (08:25)
[2021-12-07] MEDS: PLAQUENIL PO SCH (08:26)
[2021-12-07] MEDS: NICOTINE PATCH TD SCH (08:26)
[2021-12-07] MEDS: PULMICORT NEB TX 0.5 MG NEB SCH ×2 (08:27→21:40)
[2021-12-07] MEDS: DUONEB 0.5 MG/3 MG (3 mL) NEB SCH ×4 (08:27→21:40)
[2021-12-07] MEDS ORDERED: NORCO 5/325 MG TAB ONE (08:35)
[2021-12-07] MEDS: NORCO 5/325 MG TAB PO PRN ×2 (08:38→14:40)
[2021-12-07] MEDS ORDERED: NORVASC TAB 2.5 MG ONE (18:30)
[2021-12-07] MEDS: NORVASC TAB 2.5 MG PO SCH (18:31)
[2021-12-07] MEDS ORDERED: ASPIRIN EC 81 MG PO SCH (19:00)
[2021-12-07] MEDS: LIPITOR TAB 20 MG PO SCH (20:26)
[2021-12-08] MEDS: NORCO 5/325 MG TAB PO PRN ×2 (03:37→08:22)
[2021-12-08] MEDS: NS 1,000 ML IV 1,000 ML IV SCH ×3 (03:38→22:55)
[2021-12-08 06:44] LABS: BASOPHILS % (AUTO) 0.7 % (0.2-1.0); EOSINOPHILS # (AUTO) 0.2 x10^3/uL (0.0-0.2); EOSINOPHILS % (AUTO) 3.7 % (0.9-2.9); HEMATOCRIT 26.3 % (36.0-47.0); HEMOGLOBIN 9.3 g/dL (12.0-16.0); LYMPHOCYTES % (AUTO) 15.6 % (21.0-51.0); MEAN CORPUSCULAR HEMOGLOBIN 31.5 pg (27.0-34.0); MEAN CORPUSCULAR HGB CONC 35.4 g/dL (33.0-35.0); MEAN CORPUSCULAR VOLUME 89.2 fL (80.0-100.0); MEAN PLATELET VOLUME 9.5 fL (7.4-11.0); MONOCYTES # (AUTO) 0.6 x10^3/uL (0.3-0.8); MONOCYTES % (AUTO) 8.8 % (0.0-13.0); NEUTROPHILS # (AUTO) 4.5 x10^3/uL (2.2-4.8); NEUTROPHILS % (AUTO) 71.2 % (42.0-75.0); RED BLOOD COUNT 2.95 X10^6/uL (3.5-5.4); RED CELL DISTRIBUTION WIDTH 13.5 % (11.6-16.5); WHITE BLOOD COUNT 6.3 X10^3/uL (3.6-10.0)
[2021-12-08 06:45] LABS: ALANINE AMINOTRANSFERASE 23 Units/L (12-78); ALBUMIN 2.6 g/dL (3.4-5.0); ALKALINE PHOSPHATASE 63 Units/L (46-116); ASPARTATE AMINO TRANSFERASE 25 Units/L (15-37); BLOOD UREA NITROGEN 19 mg/dL (7-18); CALCIUM 7.8 mg/dL (8.5-10.1); CARBON DIOXIDE 27.3 mmol/L (21-32); CHLORIDE 108 mmol/L (98-107); COR CA(FOR HYPOALB) 8.9 mg/dL (8.5-10.1); CREATINE KINASE 70 Units/L (26-192); CREATININE 1.05 mg/dL (0.55-1.02); SODIUM 138 mmol/L (136-145); TOTAL PROTEIN 5.4 g/dL (6.4-8.2); eGFR NON BLACK RACES 54 (>60)
[2021-12-08] MEDS ORDERED: ZOLOFT ONE (07:59)
[2021-12-08] MEDS ORDERED: NORVASC TAB 2.5 MG ONE (07:59)
[2021-12-08 08:21] LABS: INR 1.75 (0.8-1.3)
[2021-12-08] MEDS: ZOLOFT PO SCH (08:21)
[2021-12-08] MEDS: ROBITUSSIN DM PO SCH ×4 (08:21→20:32)
[2021-12-08] MEDS: NORVASC TAB 2.5 MG PO SCH (08:22)
[2021-12-08] MEDS: COUMADIN TAB 7.5 MG (JANTOVEN) PO SCH (08:23)
[2021-12-08] MEDS: PLAQUENIL PO SCH (08:23)
[2021-12-08] MEDS: LEVAQUIN PREMIX IV 500 MG 500 MG/100 ML BAG IV SCH (08:23)
[2021-12-08] MEDS: PROTONIX INJ 40 MG VIAL IVP SCH ×2 (08:23→20:32)
[2021-12-08] MEDS: NICOTINE PATCH TD SCH (08:37)
[2021-12-08] MEDS: PULMICORT NEB TX 0.5 MG NEB SCH ×2 (08:55→20:40)
[2021-12-08] MEDS: DUONEB 0.5 MG/3 MG (3 mL) NEB SCH ×5 (08:55→20:40)
[2021-12-08] MEDS: HEMOCYTE-PLUS PO SCH (09:07)
[2021-12-08] MEDS: LIPITOR TAB 20 MG PO SCH (20:31)
[2021-12-09 05:22] LABS: BASOPHILS # (AUTO) 0.1 X10^3/uL (0.0-0.1); BASOPHILS % (AUTO) 1.3 % (0.2-1.0); EOSINOPHILS # (AUTO) 0.3 x10^3/uL (0.0-0.2); EOSINOPHILS % (AUTO) 4.4 % (0.9-2.9); HEMATOCRIT 27.6 % (36.0-47.0); HEMOGLOBIN 9.6 g/dL (12.0-16.0); MEAN CORPUSCULAR HEMOGLOBIN 30.8 pg (27.0-34.0); MEAN CORPUSCULAR HGB CONC 34.9 g/dL (33.0-35.0); MEAN CORPUSCULAR VOLUME 88.2 fL (80.0-100.0); MONOCYTES # (AUTO) 0.5 x10^3/uL (0.3-0.8); MONOCYTES % (AUTO) 9.1 % (0.0-13.0); NEUTROPHILS # (AUTO) 3.9 x10^3/uL (2.2-4.8); NEUTROPHILS % (AUTO) 67.2 % (42.0-75.0); RED BLOOD COUNT 3.12 X10^6/uL (3.5-5.4); RED CELL DISTRIBUTION WIDTH 13.8 % (11.6-16.5); WHITE BLOOD COUNT 5.8 X10^3/uL (3.6-10.0)
[2021-12-09 05:27] LABS: INR 1.97 (0.8-1.3)
[2021-12-09 05:35] LABS: ALANINE AMINOTRANSFERASE 23 Units/L (12-78); ALBUMIN 2.8 g/dL (3.4-5.0); ALKALINE PHOSPHATASE 70 Units/L (46-116); ASPARTATE AMINO TRANSFERASE 24 Units/L (15-37); BLOOD UREA NITROGEN 18 mg/dL (7-18); CALCIUM 8.2 mg/dL (8.5-10.1); CARBON DIOXIDE 28.1 mmol/L (21-32); CHLORIDE 107 mmol/L (98-107); COR CA(FOR HYPOALB) 9.2 mg/dL (8.5-10.1); CREATININE 1.02 mg/dL (0.55-1.02); SODIUM 140 mmol/L (136-145); TOTAL PROTEIN 5.6 g/dL (6.4-8.2); eGFR NON BLACK RACES 56 (>60)
--- NOTE | 2021-12-09 05:40 | RAD ---
HISTORYPNEUMONIA, RIB FX HX: CVA, COPDSTUDYCHEST, 1 [id number] trachea is midline. The cardiac silhouette is unremarkable. Suspected small left pleural effusion. The lungs are otherwise clear.. The bony thorax is unremarkable.IMPRESSIONCOPD.Suspected small left pleural effusion..Electronically signed by: Williams Bustillo (Dec 09, 2021 05:38:23)
[2021-12-09] MEDS ORDERED: ZOFRAN INJ 4 MG VIAL IVP PRN (06:39)
[2021-12-09] MEDS ORDERED: ZOLOFT ONE (08:13)
[2021-12-09] MEDS ORDERED: NORVASC TAB 2.5 MG ONE (08:13)
[2021-12-09] MEDS: PULMICORT NEB TX 0.5 MG NEB SCH ×2 (08:21→20:00)
[2021-12-09] MEDS: DUONEB 0.5 MG/3 MG (3 mL) NEB SCH ×4 (08:21→20:00)
[2021-12-09] MEDS ORDERED: K-DUR TAB 20 MEQ PO SCH (09:00)
[2021-12-09] MEDS ORDERED: LASIX IVP SCH (09:00)
[2021-12-09] MEDS: COUMADIN TAB 7.5 MG (JANTOVEN) PO SCH (09:29)
[2021-12-09] MEDS: HEMOCYTE-PLUS PO SCH (09:29)
[2021-12-09] MEDS: NORVASC TAB 2.5 MG PO SCH (09:30)
[2021-12-09] MEDS: PROTONIX INJ 40 MG VIAL IVP SCH ×2 (09:30→20:14)
[2021-12-09] MEDS: ZOLOFT PO SCH (09:30)
[2021-12-09] MEDS: LEVAQUIN PREMIX IV 500 MG 500 MG/100 ML BAG IV SCH (09:30)
[2021-12-09] MEDS: ROBITUSSIN DM PO SCH ×4 (09:30→20:14)
[2021-12-09] MEDS: PLAQUENIL PO SCH (09:30)
[2021-12-09] MEDS: NICOTINE PATCH TD SCH (09:44)
[2021-12-09] MEDS: NS 1,000 ML IV 1,000 ML IV SCH ×2 (09:44→10:02)
[2021-12-09 09:48] LABS: ABG BASE EXCESS 3.5 mmol/L (-2.0-2.0); ABG HCO3 28.5 mmol/L (22-26)
[2021-12-09 09:49] LABS: ABG ALLEN TEST pos
[2021-12-09] MEDS: CARAFATE ORAL SUSP PO SCH ×3 (11:57→20:13)
--- NOTE | 2021-12-09 14:33 | PCM.PROG ---
Progress Note - Progress Note for Day of Date of Exam: 12/09/21 - Subjective Subjective: Mrs. Dee is a 76-year-old white female being treated for chronic obstructive pulmonary disease exacerbation, acute right rib fracture, multiple rib fractures with intractable pain, as well as abnormal cardiac enzymes. The patient has a past medical history of chronic obstructive pulmonary disease with respiratory failure. She had been treated on an outpatient basis with antibiotics, IM Rocephin and steroids. The patient had progressively gotten weaker and as a result, she had multiple falls resulting in right rib fractures. She has a history of small vessel disease. Also upon admission, the patients Troponin was elevated. Since she is better oxygenated, with improving shortness of breath, her troponins have treaded down. It was down to 85 this morning. She denies any chest pain. The patient is complaining of cough and productive cough, as well as pain to the right rib area where she has known fractures. The patient has refused to be transferred to a tertiary care facility for cardiac evaluation. We did review diagnostic tests and labs. The patients family is also aware and agrees with conservative measures. 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 She is on a statin and blood pressure control. The patient is on supplemental oxygen. She is also on IV antibiotics, corticosteroids and pain control. The patient has a history of iron deficiency anemia. She has received IV iron infusions since she has been here and we have started her on Hemocyte Plus. - Past Medical Family Social History Past Med/Fam/Surg Hx: No changes since H&P Allergies: Allergies meperidine [From Demerol] Allergy (Verified 10/13/21 10:35) FLU VIRUS VACCINE Allergy (Uncoded 02/25/21 11:30) - Review of Systems ROS: No change since H&P - Vital Signs and I&O's Vital Signs: Temperature 98.0 F Pulse Rate [Right Brachial] 81 Pulse Rate 98 Respiratory Rate 20 Blood Pressure [Left Arm] 150/72 Blood Pressure [Right Arm] 116/57 Blood Pressure 111/70 O2 Sat by Pulse Oximetry 98 Intake and Output: Intake & Output 12/07/21 12/08/21 12/09/21 12/10/21 11:59 11:59 11:59 11:59 Intake Total 1882 / 1781 Balance 1882 - Physical Exam Oriented: Normal Eyes: Normal Ear: Normal Nose: Discharge Throat: Red, Exudate Respiratory: Diminished, Wheezes, Rhonchi Cardiovascular: Tachycardia. negative: Edema : Normal Auscultation: Bowel Sounds: Normal Tenderness: Epigastric, Mild Skin: Decreased Turgur, Wound, Bruising (SCATTERED BRUISED TO BILATERAL UPPER AND LOWER EXTREMITIES, LLE SKIN TEAR, LUE SKIN TEAR) Musculoskeletal: Tender (RIGHT LATERAL RIB TENDERNESS), Motor Deficit Psychiatric: Anxiety Mood Description: Anxious Affect: Anxious Speech Pattern: Clear, Appropriate - Laboratory and Diagnostics Result Diagrams: 12/09/21 05:01 12/09/21 05:01 Labs: 12/06/21 16:38 Sputum - Expectorated Sputum Sputum Culture - Preliminary 12/06/21 16:38 Sputum - Expectorated Sputum - Final Laboratory WBC 5.8 X10^3/uL (3.6-10.0) 12/09/21 05:01 RBC 3.12 X10^6/uL (3.5-5.4) L 12/09/21 05:01 Hgb 9.6 g/dL (12.0-16.0) L 12/09/21 05:01 Hct 27.6 % (36.0-47.0) L 12/09/21 05:01 MCV 88.2 fL (80.0-100.0) 12/09/21 05:01 MCH 30.8 pg (27.0-34.0) 12/09/21 05:01 MCHC 34.9 g/dL (33.0-35.0) 12/09/21 05:01 RDW 13.8 % (11.6-16.5) 12/09/21 05:01 Plt Count 165 X10^3/uL (150.0-450.0) 12/09/21 05:01 MPV 9.0 fL (7.4-11.0) 12/09/21 05:01 Neut % (Auto) 67.2 % (42.0-75.0) 12/09/21 05:01 Lymph % (Auto) 18.0 % (21.0-51.0) L 12/09/21 05:01 [place] % (Auto) 9.1 % (0.0-13.0) 12/09/21 05:01 Eos % (Auto) 4.4 % (0.9-2.9) H 12/09/21 05:01 Baso % (Auto) 1.3 % (0.2-1.0) H 12/09/21 05:01 Neut # (Auto) 3.9 x10^3/uL (2.2-4.8) 12/09/21 05:01 Lymph # (Auto) 1.0 X10^3/uL (1.3-2.9) L 12/09/21 05:01 [place] # (Auto) 0.5 x10^3/uL (0.3-0.8) 12/09/21 05:01 Eos # (Auto) 0.3 x10^3/uL (0.0-0.2) H 12/09/21 05:01 Baso # (Auto) 0.1 X10^3/uL (0.0-0.1) 12/09/21 05:01 Absolute Nucleated RBC 0.0 /100WBC 12/09/21 05:01 PT 21.6 SECONDS (11.8-14.3) 12/09/21 05:01 INR Target Range - 12/09/21 05:01 INR 1.97 (0.8-1.3) H 12/09/21 05:01 APTT 26.8 SECONDS (22.9-36.5) 12/06/21 10:27 PTT Comment - 12/06/21 10:27 Sample Site rrad 12/09/21 09:25 ABG pH 7.420 (7.35-7.45) 12/09/21 09:25 ABG pCO2 44.0 mmHg (35.0-45.0) 12/09/21 09:25 ABG pO2 76.0 mmHg (80.0-100.0) L 12/09/21 09:25 ABG HCO3 28.5 mmol/L (22-26) H 12/09/21 09:25 ABG O2 Saturation 95.0 % (90-100) 12/09/21 09:25 ABG Base Excess 3.5 mmol/L (-2.0-2.0) H 12/09/21 09:25 Brandon Test pos 12/09/21 09:25 A-a Gradient 97.0 mmHg 12/09/21 09:25 FiO2 32.0 12/09/21 09:25 Blood Gas Comments angela well-sd 12/09/21 09:25 Sodium 140 mmol/L (136-145) 12/09/21 05:01 Corrected Sodium TNP 12/09/21 05:01 Potassium 4.5 mmol/L (3.5-5.1) 12/09/21 05:01 Chloride 107 mmol/L (98-107) 12/09/21 05:01 Carbon Dioxide 28.1 mmol/L (21-32) 12/09/21 05:01 BUN 18 mg/dL (7-18) 12/09/21 05:01 Creatinine 1.02 mg/dL (0.55-1.02) 12/09/21 05:01 Est GFR (MDRD) Af Amer > 60 (>60) 12/09/21 05:01 Est GFR (MDRD) Non-Af 56 (>60) L 12/09/21 05:01 Glucose 89 mg/dL (65-99) 12/09/21 05:01 Calcium 8.2 mg/dL (8.5-10.1) L 12/09/21 05:01 Corrected Calcium 9.2 mg/dL (8.5-10.1) 12/09/21 05:01 Magnesium 2.2 mg/dL (1.7-2.9) 12/07/21 04:37 Iron 27 ug/dL (50-175) L 12/06/21 10:27 Transferrin 152 mg/dL (202-364) L 12/06/21 10:27 Ferritin 562 ng/mL (8-252) H 12/06/21 10:27 Total Bilirubin 0.30 mg/dL (0.2-1.0) 12/09/21 05:01 AST 24 Units/L (15-37) 12/09/21 05:01 ALT 23 Units/L (12-78) 12/09/21 05:01 Alkaline Phosphatase 70 Units/L (46-116) 12/09/21 05:01 Creatine Kinase 70 Units/L (26-192) 12/08/21 06:17 Troponin I High Sens 112.2 ng/L (4.0-60.0) H* 12/09/21 08:30 Total Protein 5.6 g/dL (6.4-8.2) L 12/09/21 05:01 Albumin 2.8 g/dL (3.4-5.0) L 12/09/21 05:01 Globulin 2.8 g/dL (2.5-4.5) 12/09/21 05:01 Albumin/Globulin Ratio 1.0 Ratio (1.1-2.1) L 12/09/21 05:01 Vitamin B12 1474 pg/mL (193-986) H 12/06/21 10:27 Folate > 20.0 ng/mL (>8.6) 12/06/21 10:27 SARS-CoV-2 (PCR) Negative (NEGATIVE) 12/06/21 10:00 Influenza Type A (PCR) Negative (NEGATIVE) 12/06/21 10:00 Influenza Type B (PCR) Negative (NEGATIVE) 12/06/21 10:00 RSV (PCR) Negative (NEGATIVE) 12/06/21 10:00 - Plan (1) COPD exacerbation Status: Acute Plan: SERIAL EKG AND CE, RESP THERAPY AND SUPPLEMENTAL O2. RESP PANEL ON ADMISSION, IV HYDRATION. DAILY PT/INR, ADMISSION LABS, SPUTUM CULTURE. CXR WITH RIB SERIES ON ADMISSION. PAIN CONTROL, VERIFY HOME MEDICATION. IV ATBX THERAPY, IV SOLU MEDROL (2) Right rib fracture Status: Acute (3) Hypertension Status: Chronic (4) GERD (gastroesophageal reflux disease) Status: Chronic (5) Lupus Status: Acute (6) FPC (current) use of anticoagulants Status: Acute
[2021-12-09] MEDS: LIPITOR TAB 20 MG PO SCH (20:13)
[2021-12-10] MEDS: NS 1,000 ML IV 1,000 ML IV SCH ×3 (05:06→16:32)
[2021-12-10] MEDS: CARAFATE ORAL SUSP PO SCH ×4 (05:40→20:37)
[2021-12-10 06:01] LABS: BASOPHILS % (AUTO) 0.9 % (0.2-1.0); EOSINOPHILS # (AUTO) 0.2 x10^3/uL (0.0-0.2); EOSINOPHILS % (AUTO) 4.1 % (0.9-2.9); HEMATOCRIT 28.4 % (36.0-47.0); HEMOGLOBIN 9.9 g/dL (12.0-16.0); LYMPHOCYTES # (AUTO) 1.1 X10^3/uL (1.3-2.9); LYMPHOCYTES % (AUTO) 20.3 % (21.0-51.0); MEAN CORPUSCULAR HEMOGLOBIN 31.5 pg (27.0-34.0); MEAN CORPUSCULAR HGB CONC 34.8 g/dL (33.0-35.0); MEAN CORPUSCULAR VOLUME 90.6 fL (80.0-100.0); MEAN PLATELET VOLUME 8.7 fL (7.4-11.0); MONOCYTES # (AUTO) 0.5 x10^3/uL (0.3-0.8); MONOCYTES % (AUTO) 10.1 % (0.0-13.0); NEUTROPHILS # (AUTO) 3.4 x10^3/uL (2.2-4.8); NEUTROPHILS % (AUTO) 64.6 % (42.0-75.0); RED BLOOD COUNT 3.13 X10^6/uL (3.5-5.4); RED CELL DISTRIBUTION WIDTH 13.5 % (11.6-16.5); WHITE BLOOD COUNT 5.3 X10^3/uL (3.6-10.0)
[2021-12-10 06:09] LABS: ALANINE AMINOTRANSFERASE 26 Units/L (12-78); ALBUMIN 2.8 g/dL (3.4-5.0); ALKALINE PHOSPHATASE 76 Units/L (46-116); ASPARTATE AMINO TRANSFERASE 29 Units/L (15-37); BLOOD UREA NITROGEN 21 mg/dL (7-18); CALCIUM 8.2 mg/dL (8.5-10.1); CHLORIDE 106 mmol/L (98-107); COR CA(FOR HYPOALB) 9.2 mg/dL (8.5-10.1); CREATININE 1.19 mg/dL (0.55-1.02); SODIUM 142 mmol/L (136-145); TOTAL PROTEIN 5.8 g/dL (6.4-8.2); eGFR NON BLACK RACES 47 (>60)
--- NOTE | 2021-12-10 06:55 | RAD ---
CHEST, 1 VIEWHISTORY: SOBStudy: AP view of the chest.Comparison:December 09, 2021Findings:The cardiomediastinal silhouette is normal. Possible trace left effusion. No consolidation. Osseous structures demonstrate no acute abnormality. Bilateral hyperexpansion and interstitial prominence.IMPRESSION:1. No acute cardiopulmonary process. No change from prior.2. Findings of COPD.Electronically signed by: BARBIE BORRERO (Dec 10, 2021 06:52:31)
[2021-12-10] MEDS ORDERED: NORVASC TAB 2.5 MG ONE (08:36)
[2021-12-10] MEDS ORDERED: ZOLOFT ONE (08:37)
[2021-12-10] MEDS: LEVAQUIN PREMIX IV 500 MG 500 MG/100 ML BAG IV SCH (08:42)
[2021-12-10] MEDS: PULMICORT NEB TX 0.5 MG NEB SCH ×2 (08:42→21:24)
[2021-12-10] MEDS: DUONEB 0.5 MG/3 MG (3 mL) NEB SCH ×4 (08:42→21:24)
[2021-12-10] MEDS: NICOTINE PATCH TD SCH ×2 (08:43→09:33)
[2021-12-10] MEDS: PROTONIX INJ 40 MG VIAL IVP SCH ×2 (08:43→20:31)
[2021-12-10] MEDS: ROBITUSSIN DM PO SCH ×4 (08:43→20:31)
[2021-12-10] MEDS: COUMADIN TAB 7.5 MG (JANTOVEN) PO SCH (08:44)
[2021-12-10] MEDS: PLAQUENIL PO SCH (08:44)
[2021-12-10] MEDS: ZOLOFT PO SCH (08:44)
[2021-12-10] MEDS: HEMOCYTE-PLUS PO SCH (08:44)
[2021-12-10] MEDS: NORVASC TAB 2.5 MG PO SCH (08:44)
[2021-12-10 08:50] LABS: INR 1.97 (0.8-1.3)
[2021-12-10] MEDS: DIFLUCAN 200 MG IV PREMIX* 200 MG/100 ML BAG IV SCH (10:52)
--- NOTE | 2021-12-10 12:11 | PCM.PROG ---
Progress Note - Progress Note for Day of Date of Exam: 12/10/21 - Subjective Subjective: IS A 76 YEAR OLD PATIENT OF . SHE IS CURRENTLY BEING TREATED FOR COPD EXACERBATION, PNEUMONIA, ACUTE RIGHT RIB FRACTURES WITH INTRACTABLE PAIN, AND ABNORMAL CARDIAC ENZYMES. TODAY, PATIENT IS ALERT AND ORIENTED, SITTING UP IN BED ON MORNING ROUNDS. SHE COMPLAINS OF SHORTNESS OF BREATH AT TIMES, WEAKNESS, AND PAIN TO RIGHT RIBS. SHE DENIES CHEST PAIN. SHE HAS REFUSED TO BE TRANSFERRED TO A TERTIARY CARE FACILITY FOR CARDIAC EVALUATION. HER VITALS THIS MORNING ARE: 98.2-82-18-98%-136/63. LABS WERE OBTAINED. WBC 5.3, RBC 3.13, HGB 9.9, HCT 28.4, SODIUM 142, POTASSIUM 4.1, BUN 21, CREATININE 1.19, GLUCOSE 103, CALCIUM 8.2, TOTAL PROTEIN 5.8, ALBUMIN 2.8. TROPONINS HAVE CONTINUED TO DECREASE. CHEST XRAY WAS OBTAINED THIS MORNING AND REVEALED: 1. No acute cardiopulmonary process. No change from prior. 2. Findings of COPD. SHE IS ON ANTICOAGULANT THERAPY, STATIN, AND ANTIHYPERTENSIVES. SHE HAS RECEIVED IRON INFUSIONS DUE TO IRON DEFICIENCY ANEMIA SINCE ADMISSION. WE WILL CONTINUE WITH IV ANTIBIOTICS, CORTICOSTEROIDS, AND PAIN MEDICATIONS TODAY. OTHERWISE, WE PLAN TO FOLLOW-UP WITH AM LABS AND CONTINUE TO MONITOR. TIME SPENT ON CLINICAL ASSESSMENT, REVIWING LABS AND IMAGING, DECISION MAKING, AND DOCUMENTATION GREATER THAN 45 MINUTES. - Past Medical Family Social History Past Med/Fam/Surg Hx: No changes since H&P Allergies: Allergies meperidine [From Demerol] Allergy (Verified 10/13/21 10:35) FLU VIRUS VACCINE Allergy (Uncoded 02/25/21 11:30) - Review of Systems ROS: No change since H&P - Vital Signs and I&O's Vital Signs: Temperature 98.2 F Pulse Rate [Right Brachial] 82 Pulse Rate 83 Respiratory Rate 18 Blood Pressure [Left Arm] 136/63 Blood Pressure [Right Arm] 116/57 Blood Pressure 111/70 O2 Sat by Pulse Oximetry 94 Intake and Output: Intake & Output 12/08/21 12/09/21 12/10/21 12/11/21 11:59 11:59 11:59 11:59 Intake Total 2067 1782 / 178 1660 / 1660 Balance 2067 1782 / [id number] / 1659 - Physical Exam Oriented: Normal Eyes: Normal Ear: Normal Nose: Discharge Throat: Red, Exudate Respiratory: Diminished, Wheezes, Rhonchi Cardiovascular: Tachycardia. negative: Edema : Normal Auscultation: Bowel Sounds: Normal Palpation: Normal Tenderness: Epigastric, Mild Skin: Decreased Turgur, Wound, Bruising (SCATTERED BRUISED TO BILATERAL UPPER AND LOWER EXTREMITIES, LLE SKIN TEAR, LUE SKIN TEAR) Musculoskeletal: Tender (RIGHT LATERAL RIB TENDERNESS), Motor Deficit Psychiatric: Anxiety Mood Description: Anxious Affect: Anxious Speech Pattern: Clear, Appropriate - Laboratory and Diagnostics Result Diagrams: 12/10/21 05:35 12/10/21 05:35 Labs: 12/06/21 16:38 Sputum - Expectorated Sputum Sputum Culture - Preliminary 12/06/21 16:38 Sputum - Expectorated Sputum - Final Laboratory WBC 5.3 X10^3/uL (3.6-10.0) 12/10/21 05:35 RBC 3.13 X10^6/uL (3.5-5.4) L 12/10/21 05:35 Hgb 9.9 g/dL (12.0-16.0) L 12/10/21 05:35 Hct 28.4 % (36.0-47.0) L 12/10/21 05:35 MCV 90.6 fL (80.0-100.0) 12/10/21 05:35 MCH 31.5 pg (27.0-34.0) 12/10/21 05:35 MCHC 34.8 g/dL (33.0-35.0) 12/10/21 05:35 RDW 13.5 % (11.6-16.5) 12/10/21 05:35 Plt Count 172 X10^3/uL (150.0-450.0) 12/10/21 05:35 MPV 8.7 fL (7.4-11.0) 12/10/21 05:35 Neut % (Auto) 64.6 % (42.0-75.0) 12/10/21 05:35 Lymph % (Auto) 20.3 % (21.0-51.0) L 12/10/21 05:35 [place] % (Auto) 10.1 % (0.0-13.0) 12/10/21 05:35 Eos % (Auto) 4.1 % (0.9-2.9) H 12/10/21 05:35 Baso % (Auto) 0.9 % (0.2-1.0) 12/10/21 05:35 Neut # (Auto) 3.4 x10^3/uL (2.2-4.8) 12/10/21 05:35 Lymph # (Auto) 1.1 X10^3/uL (1.3-2.9) L 12/10/21 05:35 [place] # (Auto) 0.5 x10^3/uL (0.3-0.8) 12/10/21 05:35 Eos # (Auto) 0.2 x10^3/uL (0.0-0.2) 12/10/21 05:35 Baso # (Auto) 0.0 X10^3/uL (0.0-0.1) 12/10/21 05:35 Absolute Nucleated RBC 0.1 /100WBC 12/10/21 05:35 PT 21.7 SECONDS (11.8-14.3) 12/10/21 05:38 INR Target Range - 12/10/21 05:38 INR 1.97 (0.8-1.3) H 12/10/21 05:38 APTT 26.8 SECONDS (22.9-36.5) 12/06/21 10:27 PTT Comment - 12/06/21 10:27 Sample Site rrad 12/09/21 09:25 ABG pH 7.420 (7.35-7.45) 12/09/21 09:25 ABG pCO2 44.0 mmHg (35.0-45.0) 12/09/21 09:25 ABG pO2 76.0 mmHg (80.0-100.0) L 12/09/21 09:25 ABG HCO3 28.5 mmol/L (22-26) H 12/09/21 09:25 ABG O2 Saturation 95.0 % (90-100) 12/09/21 09:25 ABG Base Excess 3.5 mmol/L (-2.0-2.0) H 12/09/21 09:25 Brandon Test pos 12/09/21 09:25 A-a Gradient 97.0 mmHg 12/09/21 09:25 FiO2 32.0 12/09/21 09:25 Blood Gas Comments angela well-sd 12/09/21 09:25 Sodium 142 mmol/L (136-145) 12/10/21 05:35 Corrected Sodium TNP 12/10/21 05:35 Potassium 4.1 mmol/L (3.5-5.1) 12/10/21 05:35 Chloride 106 mmol/L (98-107) 12/10/21 05:35 Carbon Dioxide 30.0 mmol/L (21-32) 12/10/21 05:35 BUN 21 mg/dL (7-18) H 12/10/21 05:35 Creatinine 1.19 mg/dL (0.55-1.02) H 12/10/21 05:35 Est GFR (MDRD) Af Amer 57 (>60) L 12/10/21 05:35 Est GFR (MDRD) Non-Af 47 (>60) L 12/10/21 05:35 Glucose 103 mg/dL (65-99) H 12/10/21 05:35 Calcium 8.2 mg/dL (8.5-10.1) L 12/10/21 05:35 Corrected Calcium 9.2 mg/dL (8.5-10.1) 12/10/21 05:35 Magnesium 2.2 mg/dL (1.7-2.9) 12/07/21 04:37 Iron 27 ug/dL (50-175) L 12/06/21 10:27 Transferrin 152 mg/dL (202-364) L 12/06/21 10:27 Ferritin 562 ng/mL (8-252) H 12/06/21 10:27 Total Bilirubin 0.30 mg/dL (0.2-1.0) 12/10/21 05:35 AST 29 Units/L (15-37) 12/10/21 05:35 ALT 26 Units/L (12-78) 12/10/21 05:35 Alkaline Phosphatase 76 Units/L (46-116) 12/10/21 05:35 Creatine Kinase 70 Units/L (26-192) 12/08/21 06:17 Troponin I High Sens 84.4 ng/L (4.0-60.0) H* 12/09/21 21:26 Total Protein 5.8 g/dL (6.4-8.2) L 12/10/21 05:35 Albumin 2.8 g/dL (3.4-5.0) L 12/10/21 05:35 Globulin 3.0 g/dL (2.5-4.5) 12/10/21 05:35 Albumin/Globulin Ratio 0.9 Ratio (1.1-2.1) L 12/10/21 05:35 Vitamin B12 1474 pg/mL (193-986) H 12/06/21 10:27 Folate > 20.0 ng/mL (>8.6) 12/06/21 10:27 SARS-CoV-2 (PCR) Negative (NEGATIVE) 12/06/21 10:00 Influenza Type A (PCR) Negative (NEGATIVE) 12/06/21 10:00 Influenza Type B (PCR) Negative (NEGATIVE) 12/06/21 10:00 RSV (PCR) Negative (NEGATIVE) 12/06/21 10:00 - Plan (1) COPD exacerbation Status: Acute Plan: CONTINUE SUPPLEMENTAL OXYGEN, IV ANTIBIOTICS, CORTICOSTEROIDS, AND PAIN MEDICATIONS TODAY. COTINUE HOME MEDICATIONS (2) Pneumonia Status: Acute Qualifiers: Pneumonia type: due to unspecified organism Laterality: bilateral Lung location: unspecified part of lung Qualified Code(s): J18.9 - Pneumonia, uns pecified organism (3) Right rib fracture Status: Acute Qualifiers: Encounter type: initial encounter Rib fracture type: multiple ribs Fracture type: closed Qualified Code(s): S22.41XA - Multiple fractures of ribs, right side, initial encounter for closed fracture (4) Hypertension Status: Chronic Qualifiers: Hypertension type: primary hypertension Qualified Code(s): I10 - Essential (primary) hypertension (5) GERD (gastroesophageal reflux disease) Status: Chronic Qualifiers: Esophagitis presence: esophagitis presence not specified Qualified Code(s): K21.9 - Gastro-esophageal reflux disease without esophagitis (6) Lupus Status: Chronic Qualifiers: Systemic lupus erythematosus type: unspecified Systemic lupus erythematosus organ involvement: unspecified (7) long term care pharmacist (current) use of anticoagulants Status: Chronic (8) Anemia Status: Chronic Qualifiers: Anemia type: iron deficiency Iron deficiency anemia type: unspecified iron deficiency Qualified Code(s): D50.9 - Iron deficiency anemia, unspecified
[2021-12-10] MEDS: LIPITOR TAB 20 MG PO SCH (20:31)
[2021-12-11 05:40] LABS: BASOPHILS # (AUTO) 0.1 X10^3/uL (0.0-0.1); BASOPHILS % (AUTO) 2.4 % (0.2-1.0); EOSINOPHILS # (AUTO) 0.2 x10^3/uL (0.0-0.2); EOSINOPHILS % (AUTO) 3.8 % (0.9-2.9); HEMATOCRIT 30.1 % (36.0-47.0); HEMOGLOBIN 10.4 g/dL (12.0-16.0); LYMPHOCYTES # (AUTO) 0.9 X10^3/uL (1.3-2.9); LYMPHOCYTES % (AUTO) 15.4 % (21.0-51.0); MEAN CORPUSCULAR HEMOGLOBIN 31.3 pg (27.0-34.0); MEAN CORPUSCULAR HGB CONC 34.8 g/dL (33.0-35.0); MEAN PLATELET VOLUME 8.6 fL (7.4-11.0); MONOCYTES # (AUTO) 0.4 x10^3/uL (0.3-0.8); MONOCYTES % (AUTO) 7.4 % (0.0-13.0); NEUTROPHILS # (AUTO) 4.3 x10^3/uL (2.2-4.8); RED BLOOD COUNT 3.34 X10^6/uL (3.5-5.4); RED CELL DISTRIBUTION WIDTH 13.7 % (11.6-16.5)
[2021-12-11 05:47] LABS: ALANINE AMINOTRANSFERASE 35 Units/L (12-78); ALBUMIN 2.9 g/dL (3.4-5.0); ALKALINE PHOSPHATASE 91 Units/L (46-116); ASPARTATE AMINO TRANSFERASE 40 Units/L (15-37); BLOOD UREA NITROGEN 19 mg/dL (7-18); CALCIUM 7.9 mg/dL (8.5-10.1); CARBON DIOXIDE 27.8 mmol/L (21-32); CHLORIDE 106 mmol/L (98-107); COR CA(FOR HYPOALB) 8.8 mg/dL (8.5-10.1); CREATININE 1.04 mg/dL (0.55-1.02); SODIUM 140 mmol/L (136-145); TOTAL PROTEIN 5.9 g/dL (6.4-8.2); eGFR NON BLACK RACES 55 (>60)
[2021-12-11] MEDS: CARAFATE ORAL SUSP PO SCH ×4 (06:07→21:13)
--- NOTE | 2021-12-11 08:05 | RAD ---
CHEST, 1 VIEWHISTORY: SOBStudy: AP view of the chest.Comparison:December 10, 2021Findings:The cardiomediastinal silhouette is normal. No focal consolidations, pleural effusions or pneumothorax. Osseous structures demonstrate no acute abnormality. Bilateral hyperexpansion and interstitial prominence. No change from priorIMPRESSION:1. No acute cardiopulmonary process.2. Findings of COPD.Electronically signed by: BARBIE BORRERO (Dec 11, 2021 08:04:34)
[2021-12-11] MEDS: DUONEB 0.5 MG/3 MG (3 mL) NEB SCH ×4 (08:10→20:15)
[2021-12-11] MEDS: PULMICORT NEB TX 0.5 MG NEB SCH ×2 (08:10→20:15)
[2021-12-11] MEDS ORDERED: ZOLOFT ONE (09:23)
[2021-12-11] MEDS ORDERED: NORVASC TAB 2.5 MG ONE (09:23)
[2021-12-11] MEDS: NORVASC TAB 2.5 MG PO SCH (09:27)
[2021-12-11] MEDS: ROBITUSSIN DM PO SCH ×4 (09:27→21:13)
[2021-12-11] MEDS: PROTONIX INJ 40 MG VIAL IVP SCH ×2 (09:27→21:13)
[2021-12-11] MEDS: DIFLUCAN 200 MG IV PREMIX* 200 MG/100 ML BAG IV SCH (09:27)
[2021-12-11] MEDS: LEVAQUIN PREMIX IV 500 MG 500 MG/100 ML BAG IV SCH (09:27)
[2021-12-11] MEDS: ZOLOFT PO SCH (09:28)
[2021-12-11] MEDS: COUMADIN TAB 7.5 MG (JANTOVEN) PO SCH (09:28)
[2021-12-11] MEDS: HEMOCYTE-PLUS PO SCH (09:28)
[2021-12-11] MEDS: PLAQUENIL PO SCH (09:28)
--- NOTE | 2021-12-11 09:30 | PCM.PROG ---
Progress Note - Progress Note for Day of Date of Exam: 12/11/21 - Subjective Subjective: IS A 76 YEAR OLD PATIENT OF . SHE IS CURRENTLY BEING TREATED FOR COPD EXACERBATION, PNEUMONIA, ACUTE RIGHT RIB FRACTURES WITH INTRACTABLE PAIN, AND ABNORMAL CARDIAC ENZYMES. TODAY, PATIENT IS ALERT AND ORIENTED, SITTING UP IN BED ON MORNING ROUNDS. SHE COMPLAINS OF SHORTNESS OF BREATH AT TIMES, WEAKNESS, AND PAIN TO RIGHT RIBS. SHE DENIES CHEST PAIN. SHE HAS REFUSED TO BE TRANSFERRED TO A TERTIARY CARE FACILITY FOR CARDIAC EVALUATION. HER VITALS THIS MORNING ARE: 98.4-91-20-97%-147/70. LABS WERE OBTAINED. WBC 6.0, RBC 3.34, HGB 10.4, HCT 30.1, SODIUM 140, POTASSIUM 3.9, CHLORIDE 106, BUN 19, CREATININE 1.04, AST 40, ALT 35, ALK PHOS 91, TOTAL PROTEIN 5.9, ALBUMIN 2.9. TROPONINS HAVE CONTINUED TO DECREASE. CHEST XRAY WAS OBTAINED THIS MORNING AND REVEALED: 1. No acute cardiopulmonary process. 2. Findings of COPD. SHE IS ON ANTICOAGULANT THERAPY, STATIN, AND AN TIHYPERTENSIVES. SHE HAS RECEIVED IRON INFUSIONS DUE TO IRON DEFICIENCY ANEMIA SINCE ADMISSION. WE WILL CONTINUE WITH IV ANTIBIOTICS, CORTICOSTEROIDS, AND PAIN MEDICATIONS TODAY. OTHERWISE, WE PLAN TO FOLLOW-UP WITH AM LABS AND CONTINUE TO MONITOR. TIME SPENT ON CLINICAL ASSESSMENT, REVIWING LABS AND IMAGING, DECISION MAKING, AND DOCUMENTATION GREATER THAN 45 MINUTES. - Past Medical Family Social History Past Med/Fam/Surg Hx: No changes since H&P Allergies: Allergies meperidine [From Demerol] Allergy (Verified 10/13/21 10:35) FLU VIRUS VACCINE Allergy (Uncoded 02/25/21 11:30) - Review of Systems ROS: No change since H&P - Vital Signs and I&O's Vital Signs: Temperature 98.4 F Pulse Rate [Right Brachial] 91 Pulse Rate 82 Respiratory Rate 20 Blood Pressure [Left Arm] 151/65 Blood Pressure [Right Arm] 147/70 Blood Pressure 111/70 O2 Sat by Pulse Oximetry 97 Intake and Output: Intake & Output 12/08/21 12/09/21 12/10/21 12/11/21 11:59 11:59 11:59 11:59 Intake Total 2067 / 2067 1782 / 1782 1660 / 1660 1991 / 1991 Balance 2067 / [id number] / 1659 - Physical Exam Oriented: Normal Eyes: Normal Ear: Normal Nose: Discharge Throat: Red, Exudate Respiratory: Diminished, Wheezes, Rhonchi Cardiovascular: Tachycardia. negative: Edema : Normal Auscultation: Bowel Sounds: Normal Tenderness: Epigastric, Mild Skin: Decreased Turgur, Wound, Bruising (SCATTERED BRUISED TO BILATERAL UPPER AND LOWER EXTREMITIES, LLE SKIN TEAR, LUE SKIN TEAR) Musculoskeletal: Tender (RIGHT LATERAL RIB TENDERNESS), Motor Deficit Psychiatric: Anxiety Mood Description: Anxious Affect: Anxious Speech Pattern: Clear, Appropriate - Laboratory and Diagnostics Result Diagrams: 12/11/21 04:55 12/11/21 04:55 Labs: 12/06/21 16:38 Sputum - Expectorated Sputum Sputum Culture - Preliminary 12/06/21 16:38 Sputum - Expectorated Sputum - Final Laboratory WBC 6.0 X10^3/uL (3.6-10.0) 12/11/21 04:55 RBC 3.34 X10^6/uL (3.5-5.4) L 12/11/21 04:55 Hgb 10.4 g/dL (12.0-16.0) L 12/11/21 04:55 Hct 30.1 % (36.0-47.0) L 12/11/21 04:55 MCV 90.0 fL (80.0-100.0) 12/11/21 04:55 MCH 31.3 pg (27.0-34.0) 12/11/21 04:55 MCHC 34.8 g/dL (33.0-35.0) 12/11/21 04:55 RDW 13.7 % (11.6-16.5) 12/11/21 04:55 Plt Count 179 X10^3/uL (150.0-450.0) 12/11/21 04:55 MPV 8.6 fL (7.4-11.0) 12/11/21 04:55 Neut % (Auto) 71.0 % (42.0-75.0) 12/11/21 04:55 Lymph % (Auto) 15.4 % (21.0-51.0) L 12/11/21 04:55 [place] % (Auto) 7.4 % (0.0-13.0) 12/11/21 04:55 Eos % (Auto) 3.8 % (0.9-2.9) H 12/11/21 04:55 Baso % (Auto) 2.4 % (0.2-1.0) H 12/11/21 04:55 Neut # (Auto) 4.3 x10^3/uL (2.2-4.8) 12/11/21 04:55 Lymph # (Auto) 0.9 X10^3/uL (1.3-2.9) L 12/11/21 04:55 [place] # (Auto) 0.4 x10^3/uL (0.3-0.8) 12/11/21 04:55 Eos # (Auto) 0.2 x10^3/uL (0.0-0.2) 12/11/21 04:55 Baso # (Auto) 0.1 X10^3/uL (0.0-0.1) 12/11/21 04:55 Absolute Nucleated RBC 0.0 /100WBC 12/11/21 04:55 PT 21.7 SECONDS (11.8-14.3) 12/10/21 05:38 INR Target Range - 12/10/21 05:38 INR 1.97 (0.8-1.3) H 12/10/21 05:38 APTT 26.8 SECONDS (22.9-36.5) 12/06/21 10:27 PTT Comment - 12/06/21 10:27 Sample Site rrad 12/09/21 09:25 ABG pH 7.420 (7.35-7.45) 12/09/21 09:25 ABG pCO2 44.0 mmHg (35.0-45.0) 12/09/21 09:25 ABG pO2 76.0 mmHg (80.0-100.0) L 12/09/21 09:25 ABG HCO3 28.5 mmol/L (22-26) H 12/09/21 09:25 ABG O2 Saturation 95.0 % (90-100) 12/09/21 09:25 ABG Base Excess 3.5 mmol/L (-2.0-2.0) H 12/09/21 09:25 Brandon Test pos 12/09/21 09:25 A-a Gradient 97.0 mmHg 12/09/21 09:25 FiO2 32.0 12/09/21 09:25 Blood Gas Comments angela well-sd 12/09/21 09:25 Sodium 140 mmol/L (136-145) 12/11/21 04:55 Corrected Sodium TNP 12/11/21 04:55 Potassium 3.9 mmol/L (3.5-5.1) 12/11/21 04:55 Chloride 106 mmol/L (98-107) 12/11/21 04:55 Carbon Dioxide 27.8 mmol/L (21-32) 12/11/21 04:55 BUN 19 mg/dL (7-18) H 12/11/21 04:55 Creatinine 1.04 mg/dL (0.55-1.02) H 12/11/21 04:55 Est GFR (MDRD) Af Amer > 60 (>60) 12/11/21 04:55 Est GFR (MDRD) Non-Af 55 (>60) L 12/11/21 04:55 Glucose 95 mg/dL (65-99) 12/11/21 04:55 Calcium 7.9 mg/dL (8.5-10.1) L 12/11/21 04:55 Corrected Calcium 8.8 mg/dL (8.5-10.1) 12/11/21 04:55 Magnesium 2.2 mg/dL (1.7-2.9) 12/07/21 04:37 Iron 27 ug/dL (50-175) L 12/06/21 10:27 Transferrin 152 mg/dL (202-364) L 12/06/21 10:27 Ferritin 562 ng/mL (8-252) H 12/06/21 10:27 Total Bilirubin 0.20 mg/dL (0.2-1.0) 12/11/21 04:55 AST 40 Units/L (15-37) H 12/11/21 04:55 ALT 35 Units/L (12-78) 12/11/21 04:55 Alkaline Phosphatase 91 Units/L (46-116) 12/11/21 04:55 Creatine Kinase 70 Units/L (26-192) 12/08/21 06:17 Troponin I High Sens 84.4 ng/L (4.0-60.0) H* 12/09/21 21:26 Total Protein 5.9 g/dL (6.4-8.2) L 12/11/21 04:55 Albumin 2.9 g/dL (3.4-5.0) L 12/11/21 04:55 Globulin 3.0 g/dL (2.5-4.5) 12/11/21 04:55 Albumin/Globulin Ratio 1.0 Ratio (1.1-2.1) L 12/11/21 04:55 Vitamin B12 1474 pg/mL (193-986) H 12/06/21 10:27 Folate > 20.0 ng/mL (>8.6) 12/06/21 10:27 SARS-CoV-2 (PCR) Negative (NEGATIVE) 12/06/21 10:00 Influenza Type A (PCR) Negative (NEGATIVE) 12/06/21 10:00 Influenza Type B (PCR) Negative (NEGATIVE) 12/06/21 10:00 RSV (PCR) Negative (NEGATIVE) 12/06/21 10:00 Resp Viral Panel (PCR) See scanned report 12/06/21 16:38 - Plan (1) COPD exacerbation Status: Acute Plan: CONTINUE SUPPLEMENTAL OXYGEN, IV ANTIBIOTICS, CORTICOSTEROIDS, AND PAIN MEDICATIONS TODAY. COTINUE HOME MEDICATIONS (2) Pneumonia Status: Acute Qualifiers: Pneumonia type: due to unspecified organism Laterality: bilateral Lung location: unspecified part of lung Qualified Code(s): J18.9 - Pneumonia, unspecified organism (3) Right rib fracture Status: Acute Qualifiers: Encounter type: initial encounter Rib fracture type: multiple ribs Fracture type: closed Qualified Code(s): S22.41XA - Multiple fractures of ribs, right side, initial encounter for closed fracture (4) Hypertension Status: Chronic Qualifiers: Hypertension type: primary hypertension Qualified Code(s): I10 - Essential (primary) hypertension (5) GERD (gastroesophageal reflux disease) Status: Chronic Qualifiers: Esophagitis presence: esophagitis presence not specified Qualified Code(s): K21.9 - Gastro-esophageal reflux disease without esophagitis (6) Lupus Status: Chronic Qualifiers: Systemic lupus erythematosus type: unspecified Systemic lupus erythematosus organ involvement: unspecified (7) penitentiary (current) use of anticoagulants Status: Chronic (8) Anemia Status: Chronic Qualifiers: Anemia type: iron deficiency Iron deficiency anemia type: unspecified iron deficiency Qualified Code(s): D50.9 - Iron deficiency anemia, unspecified
[2021-12-11] MEDS: NS 1,000 ML IV 1,000 ML IV SCH ×2 (11:59→17:27)
[2021-12-11] MEDS: LIPITOR TAB 20 MG PO SCH (21:13)
[2021-12-12] MEDS: CARAFATE ORAL SUSP PO SCH ×2 (05:31→12:28)
[2021-12-12] MEDS: NS 1,000 ML IV 1,000 ML IV SCH (05:32)
[2021-12-12 06:44] LABS: BASOPHILS # (AUTO) 0.1 X10^3/uL (0.0-0.1); BASOPHILS % (AUTO) 0.9 % (0.2-1.0); EOSINOPHILS # (AUTO) 0.2 x10^3/uL (0.0-0.2); EOSINOPHILS % (AUTO) 3.4 % (0.9-2.9); HEMATOCRIT 29.2 % (36.0-47.0); HEMOGLOBIN 10.2 g/dL (12.0-16.0); LYMPHOCYTES # (AUTO) 1.2 X10^3/uL (1.3-2.9); LYMPHOCYTES % (AUTO) 20.6 % (21.0-51.0); MEAN CORPUSCULAR HEMOGLOBIN 31.2 pg (27.0-34.0); MEAN CORPUSCULAR HGB CONC 34.7 g/dL (33.0-35.0); MEAN CORPUSCULAR VOLUME 89.9 fL (80.0-100.0); MEAN PLATELET VOLUME 8.5 fL (7.4-11.0); MONOCYTES # (AUTO) 0.6 x10^3/uL (0.3-0.8); MONOCYTES % (AUTO) 9.2 % (0.0-13.0); NEUTROPHILS # (AUTO) 3.9 x10^3/uL (2.2-4.8); NEUTROPHILS % (AUTO) 65.9 % (42.0-75.0); RED BLOOD COUNT 3.25 X10^6/uL (3.5-5.4); RED CELL DISTRIBUTION WIDTH 13.5 % (11.6-16.5)
[2021-12-12 06:52] LABS: ALANINE AMINOTRANSFERASE 38 Units/L (12-78); ALBUMIN 2.8 g/dL (3.4-5.0); ALKALINE PHOSPHATASE 95 Units/L (46-116); ASPARTATE AMINO TRANSFERASE 37 Units/L (15-37); BLOOD UREA NITROGEN 18 mg/dL (7-18); CALCIUM 7.6 mg/dL (8.5-10.1); CARBON DIOXIDE 29.5 mmol/L (21-32); CHLORIDE 105 mmol/L (98-107); COR CA(FOR HYPOALB) 8.6 mg/dL (8.5-10.1); CREATININE 1.04 mg/dL (0.55-1.02); SODIUM 141 mmol/L (136-145); eGFR NON BLACK RACES 55 (>60)
--- NOTE | 2021-12-12 07:21 | RAD ---
HISTORYPneumonia SOBSTUDYPortable AP chestCOMPARISONOct2021FINDINGSThere is an infiltrate in the left lower lobe obscuring the retrocardiac structures, diaphragm and costophrenic angle. The left upper lobe and right lung are clear. The heart is not enlarged.IMPRESSIONLeft lower lobe airspace process consistent with pneumonia.Electronically signed by: SAMIR GEORGES (Dec 12, 2021 07:20:33)
[2021-12-12] MEDS: DUONEB 0.5 MG/3 MG (3 mL) NEB SCH ×2 (08:11→13:11)
[2021-12-12] MEDS: PULMICORT NEB TX 0.5 MG NEB SCH (08:11)
[2021-12-12] MEDS ORDERED: NORVASC TAB 2.5 MG ONE (08:17)
[2021-12-12] MEDS ORDERED: ZOLOFT ONE (08:17)
[2021-12-12] MEDS: PLAQUENIL PO SCH (08:57)
[2021-12-12] MEDS: HEMOCYTE-PLUS PO SCH (08:57)
[2021-12-12] MEDS: COUMADIN TAB 7.5 MG (JANTOVEN) PO SCH (08:58)
[2021-12-12] MEDS: NORVASC TAB 2.5 MG PO SCH (08:58)
[2021-12-12] MEDS: ZOLOFT PO SCH (08:58)
[2021-12-12] MEDS: ROBITUSSIN DM PO SCH ×2 (08:58→12:28)
[2021-12-12] MEDS ORDERED: ROCEPHIN VIAL 1 GRAM 1 G in NS 100 ML IV 100 ML IV SCH (09:00)
[2021-12-12] MEDS ORDERED: ROCEPHIN 1 GRAM IV PREMIX 1 G/50 ML IV.SOLN. IV SCH (09:00)
[2021-12-12] MEDS: DIFLUCAN 200 MG IV PREMIX* 200 MG/100 ML BAG IV SCH (09:09)
[2021-12-12] MEDS: LEVAQUIN PREMIX IV 500 MG 500 MG/100 ML BAG IV SCH (09:09)
[2021-12-12] MEDS: PROTONIX INJ 40 MG VIAL IVP SCH (09:11)
[2021-12-12 12:16] VITALS: BP 141/72
[2021-12-12 13:40] LABS: INR 2.69 (0.8-1.3)
== END 2021-12-12 15:10 | disposition home health service (06) | DRG 190 ==
LOC: MED/SURG
PROVIDERS: ADMIT Internal Medicine; ATTEND Internal Medicine
DX: K21.9 Gastro-esophageal reflux disease without esophagitis; R53.1 Weakness; R79.1 Abnormal coagulation profile; J44.1 Chronic obstructive pulmonary disease with (acute) exacerbation; M32.9 Systemic lupus erythematosus, unspecified; R77.8 Other specified abnormalities of plasma proteins; R07.81 Pleurodynia; R94.31 Abnormal electrocardiogram [ECG] [EKG]; B37.89 Other sites of candidiasis; D50.8 Other iron deficiency anemias; S22.41XA Multiple fractures of ribs, right side, initial encounter for closed fracture; R06.02 Shortness of breath; I10 Essential (primary) hypertension; J18.8 Other pneumonia, unspecified organism; J90 Pleural effusion, not elsewhere classified; W18.39XA Other fall on same level, initial encounter; R26.89 Other abnormalities of gait and mobility; Z79.01 Long term (current) use of anticoagulants

== ENCOUNTER 2021-12-13 13:40 | Observation (INO) ==
--- NOTE | 2021-12-13 13:59 | DR.SOBA ---
HPI Time Seen Time Seen by Provider: 12/13/21 13:58 Primary Care Physician Primary Care Physician: FOX VALDEZ Complaints Chief Complaint Doctors Comments: 76 y/o female brought in for evaluation. Pt had a fall about 1 week ago, was hospitalized for several days for rib fractures, d/c'd yesterday. Pt wearing O2 at home. Went to get into the shower today, + near syncopal episode. Denies falling again, no chest pain, diaphoresis, nausea, vomiting. Havgin discomfort from her R rib fractures, no worse than it has been. + underlying COPD. States has had 2 dark, tarry stools since last pm. Is on a blood thinning medication. Chief Complaint:: PT BROUGHT IN BY [facility] WITH C/O OF HAVING A HARD TIME TAKING A DEEP BREATH IN ON THE RIGHT SIDE PT STATES SHE DID HAVE SOME ABD PAIN THIS MORNING BUT IT HAS RESOLVED STATED SHE HAD A BOWEL MOVEMENT THIS MORNING AND IT WAS DARK AND TARRY ALONG WITH FEELING LIKE SHE WAS GONNA PASS OUT THIS MORNING WHILE TRYING TO TAKE A SHOWER BUT DIDNT. COVID-19 Coronavirus risk:travel/contact w/high risk person: No Has patient experienced Coronavirus symptoms: No Reviewed Nurses Notes Reviewed: Yes Source History Provided: Patient Mode of Arrival Mode of Arrival: EMS Timing Onset of Chief Complaint: 12/13/21 PMH PMH Past Medical History: Yes Past Medical History: Anxiety, Arthritis, Asthma, COPD, GERD and Hypertension Past Surgical History: Yes Surgical History: Abdominal Surgery and Hysterectomy Family History History of Family Medical Conditions: No Family Medical History: [place], Coronary Artery Disease and Hypertension Social History Does patient currently use any type of tobacco product: Yes Have you used tobacco products in the last 12 months: Yes Type of Tobacco Use: Cigarettes Does any household member use tobacco: Yes Alcohol Use: None Do you use any recreational Drugs:: No Lives With: Family Lives Where: Home Travel Risk Coronavirus risk:travel/contact w/high risk person: No Has patient experienced Coronavirus symptoms: No Infectious screening In the last 2 months have you had wt loss of >10#?: NO Have you had fever, night sweats or hemotysis?: No Have you traveled outside the country in the last 6 months?: No Isolation: Standard ROS Review of Systems Constitutional: Weakness Eyes: No Symptoms Reported ENTM: No Symptoms Reported Respiratoy: Short of Breath Cardiovascular: See HPI Gastrointestinal/Abdominal: No Symptoms Reported Genitourinary: No Symptoms Reported Neurological: Weakness Musculoskeletal: Chest wall Integumentary: No Symptoms Reported Hematologic/Lymphatic: No Symptoms Reported Psychiatric: No Symptoms Reported All Other Systems: Reviewed and Negative PE Vital Signs Vitals: Temperature 97.7 F Pulse Rate 67 Respiratory Rate 21 Blood Pressure [Left Arm] 151/65 Blood Pressure [Right Arm] 141/72 Blood Pressure 139/67 O2 Sat by Pulse Oximetry 100 General General Appearance: Alert and In No Apparent Distress Head Head Exam: Atraumatic and Normocephalic Eyes Eye exam: PERRL and EOMI ENT ENT Exam: Normal Oropharynx and Mucous Membranes Moist Neck Neck Exam: Normal Inspection and Full ROM Chest Chest Inspection: Tenderness (R side) Respiratory Respiratory Exam: Normal Lung Sounds Bilat and Other (decrease breath sounds at the bases) Cardiovascular Cardiovascular Exam: Regular Rate, Normal Rhythm and Normal Heart Sounds Abdominal Exam Abdominal Exam: Normal Bowel Sounds and Soft; negative Tenderness Extremities Extremities Exam: Normal Inspection; negative Edema Neurologic Neurological Exam: Alert, Oriented X3 and CN II-XII Intact; negative Motor Sensory Deficit Skin Skin Exam: Warm and Dry COURSE Treatment Treatment: 76 y/o female, recently d/c'd from the hospital after admission for fall, rib fractures. + near syncopal episode whil getting into shower [employer]. Vitals good, PE benign (except for chronic COPD changes, R sided rib fractures). W/u initiated. 1610 - Pt remaining stable, oxygenating well on 3L NC. Labs overall acceptable. INR therapeutic. Does have elevated troponin of 89.7, but was higher on admission, aboout the same on d/c. Will check 2 hr delta troponin.Reports dark stool x 2, no stooling here. Stool for blood pending. Hgb a bit higher now then on d/c. CXR with atelectasis/vs developing pneumonia on the R. Probably the former. Will cover with IV rocephin. Discussed with her attending, Dr Zamora, will admit for observation on a monitor tech. ROR Labs Reviewed Laboratory Results Reviewed?: Yes Result Diagrams: 12/13/21 14:08 12/13/21 14:08 Laboratory: WBC 6.9 X10^3/uL (3.6-10.0) 12/13/21 14:08 RBC 3.57 X10^6/uL (3.5-5.4) 12/13/21 14:08 Hgb 11.1 g/dL (12.0-16.0) L 12/13/21 14:08 Hct 32.0 % (36.0-47.0) L 12/13/21 14:08 MCV 89.5 fL (80.0-100.0) 12/13/21 14:08 MCH 31.1 pg (27.0-34.0) 12/13/21 14:08 MCHC 34.7 g/dL (33.0-35.0) 12/13/21 14:08 RDW 13.6 % (11.6-16.5) 12/13/21 14:08 Plt Count 203 X10^3/uL (150.0-450.0) 12/13/21 14:08 MPV 8.0 fL (7.4-11.0) 12/13/21 14:08 Neut % (Auto) 81.3 % (42.0-75.0) H 12/13/21 14:08 Lymph % (Auto) 9.0 % (21.0-51.0) L 12/13/21 14:08 [place] % (Auto) 7.1 % (0.0-13.0) 12/13/21 14:08 Eos % (Auto) 1.7 % (0.9-2.9) 12/13/21 14:08 Baso % (Auto) 0.9 % (0.2-1.0) 12/13/21 14:08 Neut # (Auto) 5.6 x10^3/uL (2.2-4.8) H 12/13/21 14:08 Lymph # (Auto) 0.6 X10^3/uL (1.3-2.9) L 12/13/21 14:08 [place] # (Auto) 0.5 x10^3/uL (0.3-0.8) 12/13/21 14:08 Eos # (Auto) 0.1 x10^3/uL (0.0-0.2) 12/13/21 14:08 Baso # (Auto) 0.1 X10^3/uL (0.0-0.1) 12/13/21 14:08 Absolute Nucleated RBC 0.1 /100WBC 12/13/21 14:08 PT 26.9 SECONDS (11.8-14.3) 12/13/21 14:08 INR Target Range - 12/13/21 14:08 INR 2.62 (0.8-1.3) H 12/13/21 14:08 APTT 37.9 SECONDS (22.9-36.5) H 12/13/21 14:08 PTT Comment - 12/13/21 14:08 Sodium 139 mmol/L (136-145) 12/13/21 14:08 Corrected Sodium TNP 12/13/21 14:08 Potassium 3.7 mmol/L (3.5-5.1) 12/13/21 14:08 Chloride 104 mmol/L (98-107) 12/13/21 14:08 Carbon Dioxide 27.5 mmol/L (21-32) 12/13/21 14:08 BUN 25 mg/dL (7-18) H 12/13/21 14:08 Creatinine 0.96 mg/dL (0.55-1.02) 12/13/21 14:08 Est GFR (MDRD) Af Amer > 60 (>60) 12/13/21 14:08 Est GFR (MDRD) Non-Af > 60 (>60) 12/13/21 14:08 Glucose 103 mg/dL (65-99) H 12/13/21 14:08 Calcium 8.3 mg/dL (8.5-10.1) L 12/13/21 14:08 Corrected Calcium 8.9 mg/dL (8.5-10.1) 12/13/21 14:08 Total Bilirubin 0.40 mg/dL (0.2-1.0) 12/13/21 14:08 AST 43 Units/L (15-37) H 12/13/21 14:08 ALT 39 Units/L (12-78) 12/13/21 14:08 Alkaline Phosphatase 96 Units/L (46-116) 12/13/21 14:08 Troponin I High Sens 89.7 ng/L (4.0-60.0) H* 12/13/21 14:08 Total Protein 6.5 g/dL (6.4-8.2) 12/13/21 14:08 Albumin 3.2 g/dL (3.4-5.0) L 12/13/21 14:08 Globulin 3.3 g/dL (2.5-4.5) 12/13/21 14:08 Albumin/Globulin Ratio 1.0 Ratio (1.1-2.1) L 12/13/21 14:08 XRAY XRAY Interpreted by: Radiologist X-ray Results: see report EKG Rate: 78 [place]: RAD Rhythm: NSR Block: None ST: Nonsp Opioid Opioid Risk Tool Age ([place] box if 16-45): No History of Preadolescent Sexual Abuse: No Total: 0 Total Score Risk Category: Low Risk Copyright: Real ALLEN predicting aberrant behaviors Discharge Plan Discharge Plan Patient Disposition: 01 HOME, SELF-CARE Condition: Stable Prescriptions: No Action warfarin 5 mg tablet 7.5 mg PO DAILY sertraline 100 mg tablet 100 mg PO QDAY atorvastatin 80 mg tablet 80 mg PO HS amlodipine 2.5 mg tablet 2.5 mg PO QDAY omeprazole 40 mg capsule,delayed release(DR/EC) 40 mg PO BID cyanocobalamin (vitamin B-12) 1,000 mcg/mL solution 1 ml subcut WEEKLY oxybutynin chloride 5 mg tablet extended release 24hr 5 mg PO DAILY Hemocyte-Plus 106 mg iron- 1 mg Capsule 1 cap PO DAILY Qty: 30 0RF albuterol sulfate 2.5 mg /3 mL (0.083 %) solution for nebulization 2.5 mg continuous nebulization Q4H PRN hydroxychloroquine 200 mg tablet 200 mg PO DAILY Orders to Discharge Patient Discharge Orders: Transfer (Routine); Ordered 12/13/21 Ordered By: Omid Michael
[2021-12-13 14:17] LABS: BASOPHILS # (AUTO) 0.1 X10^3/uL (0.0-0.1); BASOPHILS % (AUTO) 0.9 % (0.2-1.0); EOSINOPHILS # (AUTO) 0.1 x10^3/uL (0.0-0.2); EOSINOPHILS % (AUTO) 1.7 % (0.9-2.9); HEMOGLOBIN 11.1 g/dL (12.0-16.0); LYMPHOCYTES # (AUTO) 0.6 X10^3/uL (1.3-2.9); MEAN CORPUSCULAR HEMOGLOBIN 31.1 pg (27.0-34.0); MEAN CORPUSCULAR HGB CONC 34.7 g/dL (33.0-35.0); MEAN CORPUSCULAR VOLUME 89.5 fL (80.0-100.0); MONOCYTES # (AUTO) 0.5 x10^3/uL (0.3-0.8); MONOCYTES % (AUTO) 7.1 % (0.0-13.0); NEUTROPHILS # (AUTO) 5.6 x10^3/uL (2.2-4.8); NEUTROPHILS % (AUTO) 81.3 % (42.0-75.0); RED BLOOD COUNT 3.57 X10^6/uL (3.5-5.4); RED CELL DISTRIBUTION WIDTH 13.6 % (11.6-16.5); WHITE BLOOD COUNT 6.9 X10^3/uL (3.6-10.0)
[2021-12-13 14:24] LABS: INR 2.62 (0.8-1.3)
--- NOTE | 2021-12-13 14:24 | RAD ---
HISTORYSOBSTUDYCHEST, 1 [id number]/17/2022FINDINGSThere may be a nodule in the right lung base. In retrospect, I believe I can see this was present on the prior study. It measures about [address] for additional evaluation.There are additional areas of airspace opacity in the right and probably left lung base which could be pneumonia. Findings in the right side have progressed. Findings on the left side have improved.Middle and upper lungs are clear. No pneumothorax.Heart size is normal. Vascular calcifications are present compatible with atherosclerosis.Bones are unremarkable. [EKG leads are noted. ]IMPRESSION1. Improved left basilar atelectasis or pneumonia2. Progressed right basilar atelectasis or pneumonia3. Possible right lower lobe lung nodule; recommend chest CTElectronically signed by: Vern Berkowitz (Dec 13, 2021 14:23:04)
[2021-12-13 15:06] LABS: ALANINE AMINOTRANSFERASE 39 Units/L (12-78); ALBUMIN 3.2 g/dL (3.4-5.0); ALKALINE PHOSPHATASE 96 Units/L (46-116); ASPARTATE AMINO TRANSFERASE 43 Units/L (15-37); BLOOD UREA NITROGEN 25 mg/dL (7-18); CALCIUM 8.3 mg/dL (8.5-10.1); CARBON DIOXIDE 27.5 mmol/L (21-32); CHLORIDE 104 mmol/L (98-107); COR CA(FOR HYPOALB) 8.9 mg/dL (8.5-10.1); CREATININE 0.96 mg/dL (0.55-1.02); SODIUM 139 mmol/L (136-145); TOTAL PROTEIN 6.5 g/dL (6.4-8.2); eGFR NON BLACK RACES > 60 (>60)
[2021-12-13] MEDS ORDERED: ROCEPHIN 1 GRAM IV PREMIX 1 G/50 ML IV.SOLN. IV SCH (16:02)
[2021-12-13] MEDS ORDERED: ROCEPHIN VIAL 1 GRAM ONE (16:45)
[2021-12-13] MEDS ORDERED: NS 100 ML IV 100 ML ONE (16:46)
[2021-12-13] MEDS ORDERED: PROVENTIL NEB TX 0.083% 2.5MG/ 3ML NEB PRN (17:14)
[2021-12-13] MEDS: DUONEB 0.5 MG/3 MG (3 mL) NEB SCH ×2 (17:29→20:49)
[2021-12-13] MEDS ORDERED: NS 250 ML IV 250 ML IV PRN (17:41)
[2021-12-13] MEDS ORDERED: NS 250 ML IV 250 ML IV ONE (17:44)
[2021-12-13] MEDS ORDERED: NORCO 5/325 MG TAB PO PRN (17:57)
[2021-12-13] MEDS ORDERED: PULMICORT NEB TX 0.5 MG NEB ONE (19:58)
[2021-12-13] MEDS: ROBITUSSIN DM PO SCH (20:30)
[2021-12-13] MEDS: LIPITOR TAB 80 MG PO SCH (20:31)
[2021-12-13] MEDS: PULMICORT NEB TX 0.5 MG NEB SCH (20:49)
[2021-12-13] MEDS ORDERED: PriLOSEC PO SCH (21:00)
[2021-12-14] MEDS: DUONEB 0.5 MG/3 MG (3 mL) NEB SCH ×6 (01:16→20:20)
[2021-12-14 06:35] LABS: BASOPHILS % (AUTO) 0.7 % (0.2-1.0); EOSINOPHILS # (AUTO) 0.2 x10^3/uL (0.0-0.2); EOSINOPHILS % (AUTO) 2.7 % (0.9-2.9); HEMATOCRIT 29.3 % (36.0-47.0); HEMOGLOBIN 10.4 g/dL (12.0-16.0); LYMPHOCYTES # (AUTO) 1.3 X10^3/uL (1.3-2.9); LYMPHOCYTES % (AUTO) 18.1 % (21.0-51.0); MEAN CORPUSCULAR HEMOGLOBIN 31.6 pg (27.0-34.0); MEAN CORPUSCULAR HGB CONC 35.4 g/dL (33.0-35.0); MEAN CORPUSCULAR VOLUME 89.5 fL (80.0-100.0); MEAN PLATELET VOLUME 8.6 fL (7.4-11.0); MONOCYTES # (AUTO) 0.7 x10^3/uL (0.3-0.8); NEUTROPHILS # (AUTO) 4.7 x10^3/uL (2.2-4.8); NEUTROPHILS % (AUTO) 68.5 % (42.0-75.0); RED BLOOD COUNT 3.28 X10^6/uL (3.5-5.4); RED CELL DISTRIBUTION WIDTH 13.6 % (11.6-16.5); WHITE BLOOD COUNT 6.9 X10^3/uL (3.6-10.0)
[2021-12-14 06:37] LABS: INR 4.04 (0.8-1.3)
[2021-12-14 06:52] LABS: ALANINE AMINOTRANSFERASE 35 Units/L (12-78); ALKALINE PHOSPHATASE 98 Units/L (46-116); ASPARTATE AMINO TRANSFERASE 43 Units/L (15-37); BLOOD UREA NITROGEN 21 mg/dL (7-18); CALCIUM 7.8 mg/dL (8.5-10.1); CARBON DIOXIDE 26.2 mmol/L (21-32); CHLORIDE 104 mmol/L (98-107); COR CA(FOR HYPOALB) 8.6 mg/dL (8.5-10.1); SODIUM 139 mmol/L (136-145); TOTAL PROTEIN 6.1 g/dL (6.4-8.2); eGFR NON BLACK RACES 51 (>60)
[2021-12-14] MEDS ORDERED: POTASSIUM CHLORIDE LIQ 20 MEQ UDC PO PRN (06:59)
[2021-12-14] MEDS ORDERED: K-DUR TAB 20 MEQ PO PRN (06:59)
[2021-12-14] MEDS ORDERED: K-RIDER 10 MEQ/NS 100 ML 10 MEQ/100 ML BAG IV PRN (06:59)
[2021-12-14] MEDS ORDERED: POTASSIUM CHL 40 MEQ/NS 0.45% 500 ML IV PRN (06:59)
[2021-12-14] MEDS ORDERED: POTASSIUM CHL 60 MEQ/NS 0.45% 500 ML IV PRN (06:59)
[2021-12-14] MEDS ORDERED: KLOR-CON PO PRN (06:59)
--- NOTE | 2021-12-14 07:38 | RAD ---
HISTORYShortness of breath, right rib fracturesSTUDYChest AP [id number]/2022FINDINGSHear t size is normal. [place] are normal. Aorta is calcified. Lungs are hyperinflated but free of acute alveolar infiltrates. No pleural effusion or pneumothorax is identified. Right lower rib fractures are again identified. No pleural effusions are identified. Bony thorax is unremarkable. A nodular density projected over the right lung base may represent rib and costal cartilage. Bony thorax is unremarkable.IMPRESSIONLungs hyperinflated but free of acute infiltratesRight lower rib fracturesElectronically signed by: CHELSEA CHATTERJEE (Dec 14, 2021 07:36:22)
[2021-12-14] MEDS: PULMICORT NEB TX 0.5 MG NEB SCH ×2 (08:15→20:20)
--- NOTE | 2021-12-14 08:40 | DR.H&P ---
H&P - History & Physical for Day of: H&P Date: 12/13/21 - Chief Complaint Chief Complaint: NEAR SYNCOPE - History of Present Illness History of Present Illness: PT IS 76 WF ER ADMISSION AFTER PRESENTING PER EMS WITH CO SOB AND NEAR SYNCOPE WHILE GETTING A SHOWER THIS AM. PT WAS RECENTLY DC HOME FROM [facility] AFTER TREATMENT OF COPD EXACERBATION, PNEUMONIA AND ACUTE RIGHT RIB FRACTURES. PT HAS PMH OF EMPHYSEMA, RESP FAILURE, LUPUS, HTN, CAD. PT ADMITTED FOR TREATMENT OF ACUTE ILLNESS. - Past Medical History Past Medical History: Hypertension, Anxiety, COPD, Asthma, GERD, Arthritis Additional Medical History: LUPUS - Past Surgical History Surgical History: Abdominal Surgery, Hysterectomy - Family History Family Medical History: [place], Coronary Artery Disease, Hypertension - Social History Does patient currently use any type of tobacco product: Yes Have you used tobacco products in the last 12 months: Yes Type of Tobacco Use: Cigarettes How many years tobacco product used: 60 Does any household member use tobacco: No Alcohol Use: None Drug Use: None - Medications Home Medications: meperidine [From Demerol] Allergy (Verified 10/13/21 10:35) FLU VIRUS VACCINE Allergy (Uncoded 02/25/21 11:30) - Review of Systems Constitutional: Weakness Eyes: No Symptoms Reported ENT: Nose Congestion, Throat Pain Respiratory: Shortness of Breath, SOB with Excertion, Wheezing Cardiovascular: No Symptoms Reported Gastrointestinal: Nausea Genitourinary: No Symptoms Reported Musculoskeletal: Back Pain, Other (RIGHT RIB PAIN) Skin: Bruising Neurological: No Symptoms Reported - Physical Exam Vital Signs: Temperature 98.3 F Pulse Rate [Left Brachial] 81 Pulse Rate 76 Respiratory Rate 22 Blood Pressure [Left Arm] 137/63 Blood Pressure [Right Arm] 141/72 Blood Pressure 145/67 O2 Sat by Pulse Oximetry 99 Oriented: Normal Eyes: Normal Ear: Normal Nose: Normal Throat: Normal Respiratory: RLL Diminished, LLL Diminished Cardiovascular: Normal : Normal Auscultation: Bowel Sounds: Normal Palpation: Normal Tenderness: Normal Skin: Decreased Turgur Musculoskeletal: Back:Lumbar, Tender Psychiatric: Anxiety Affect: Anxious Speech Pattern: Clear, Appropriate - Assessment/Plan (1) Pneumonia Status: Acute Plan: ADMIT, RESP THERAPY, IV ATBX, DUE NEBS. PAIN CONTROL, GENTLE IV HYDRATION. CARDIAC MONITORING, VERIFY HOME MEDICATION. DAILY INR, SPUTUM CULTURE (2) Near syncope Status: Acute (3) COPD exacerbation Status: Acute (4) Hypertension Qualifiers: Hypertension type: primary hypertension Qualified Code(s): I10 - Essential (primary) hypertension Status: Chronic (5) GERD (gastroesophageal reflux disease) Qualifiers: Esophagitis presence: esophagitis presence not specified Qualified Code(s): K21.9 - Gastro-esophageal reflux disease without esophagitis Status: Chronic (6) residential (current) use of anticoagulants Status: Chronic - Allergies Allergies/Adverse Reactions: Allergies Allergy/AdvReac Type Severity Reaction Status Date / Time meperidine [From Demerol] Allergy Verified 10/13/21 10:35 FLU VIRUS VACCINE Allergy Uncoded 02/25/21 11:30
[2021-12-14] MEDS ORDERED: COUMADIN TAB 7.5 MG (JANTOVEN) PO SCH (09:00)
[2021-12-14] MEDS ORDERED: ZOLOFT ONE (09:15)
[2021-12-14] MEDS ORDERED: NORVASC TAB 2.5 MG ONE (09:15)
[2021-12-14] MEDS: PROTONIX INJ 40 MG VIAL IVP SCH ×2 (09:25→21:34)
[2021-12-14] MEDS: ROBITUSSIN DM PO SCH ×4 (09:25→21:35)
[2021-12-14] MEDS: ROCEPHIN VIAL 1 GRAM 1 G in NS 100 ML IV 100 ML IV SCH (09:26)
[2021-12-14] MEDS: PLAQUENIL PO SCH (09:26)
[2021-12-14] MEDS: OXYBUTYNIN CHLORIDE ER PO SCH (09:26)
[2021-12-14] MEDS: NORVASC TAB 2.5 MG PO SCH (09:26)
[2021-12-14] MEDS: ZOLOFT PO SCH (09:26)
[2021-12-14] MEDS: HEMOCYTE-PLUS PO SCH (09:27)
[2021-12-14] MEDS: MICRO K EXTEN CAP 10 MEQ PO PRN ×2 (09:31→17:49)
[2021-12-14] MEDS: MAGNESIUM SULFATE 1 GRAM/100 mL PREMIX 1 G/100 ML BAG IV PRN ×4 (10:11→13:41)
[2021-12-14] MEDS: CARAFATE ORAL SUSP PO SCH ×3 (11:13→21:35)
[2021-12-14 13:15] VITALS: BMI 17.5
[2021-12-14] MEDS: LIPITOR TAB 80 MG PO SCH (21:35)
[2021-12-15] MEDS: DUONEB 0.5 MG/3 MG (3 mL) NEB SCH ×6 (00:10→21:15)
[2021-12-15] MEDS: CARAFATE ORAL SUSP PO SCH ×5 (05:32→21:05)
[2021-12-15 06:25] LABS: BASOPHILS # (AUTO) 0.1 X10^3/uL (0.0-0.1); BASOPHILS % (AUTO) 0.9 % (0.2-1.0); EOSINOPHILS # (AUTO) 0.2 x10^3/uL (0.0-0.2); EOSINOPHILS % (AUTO) 2.7 % (0.9-2.9); HEMATOCRIT 28.1 % (36.0-47.0); HEMOGLOBIN 9.8 g/dL (12.0-16.0); LYMPHOCYTES # (AUTO) 1.4 X10^3/uL (1.3-2.9); LYMPHOCYTES % (AUTO) 19.8 % (21.0-51.0); MEAN CORPUSCULAR HEMOGLOBIN 31.4 pg (27.0-34.0); MEAN CORPUSCULAR HGB CONC 34.9 g/dL (33.0-35.0); MEAN CORPUSCULAR VOLUME 90.1 fL (80.0-100.0); MEAN PLATELET VOLUME 8.9 fL (7.4-11.0); MONOCYTES # (AUTO) 0.6 x10^3/uL (0.3-0.8); MONOCYTES % (AUTO) 9.3 % (0.0-13.0); NEUTROPHILS # (AUTO) 4.7 x10^3/uL (2.2-4.8); NEUTROPHILS % (AUTO) 67.3 % (42.0-75.0); RED BLOOD COUNT 3.11 X10^6/uL (3.5-5.4); RED CELL DISTRIBUTION WIDTH 13.8 % (11.6-16.5)
[2021-12-15 06:37] LABS: ALANINE AMINOTRANSFERASE 35 Units/L (12-78); ALBUMIN 2.8 g/dL (3.4-5.0); ALKALINE PHOSPHATASE 106 Units/L (46-116); ASPARTATE AMINO TRANSFERASE 37 Units/L (15-37); BLOOD UREA NITROGEN 15 mg/dL (7-18); CALCIUM 7.5 mg/dL (8.5-10.1); CARBON DIOXIDE 25.9 mmol/L (21-32); CHLORIDE 107 mmol/L (98-107); COR CA(FOR HYPOALB) 8.5 mg/dL (8.5-10.1); CREATININE 1.14 mg/dL (0.55-1.02); MAGNESIUM 2.2 mg/dL (1.7-2.9); SODIUM 140 mmol/L (136-145); TOTAL PROTEIN 5.7 g/dL (6.4-8.2); eGFR NON BLACK RACES 49 (>60)
[2021-12-15] MEDS ORDERED: NORVASC TAB 2.5 MG ONE (08:19)
[2021-12-15] MEDS ORDERED: ZOLOFT ONE (08:19)
[2021-12-15] MEDS: PULMICORT NEB TX 0.5 MG NEB SCH ×2 (08:38→21:15)
[2021-12-15 09:01] LABS: INR 5.16 (0.8-1.3)
[2021-12-15] MEDS: PROTONIX INJ 40 MG VIAL IVP SCH ×2 (09:19→21:00)
[2021-12-15] MEDS: ROCEPHIN VIAL 1 GRAM 1 G in NS 100 ML IV 100 ML IV SCH (09:20)
[2021-12-15] MEDS: NORVASC TAB 2.5 MG PO SCH (09:21)
[2021-12-15] MEDS: ZOLOFT PO SCH (09:21)
[2021-12-15] MEDS: HEMOCYTE-PLUS PO SCH (09:21)
[2021-12-15] MEDS: ROBITUSSIN DM PO SCH ×5 (09:21→21:03)
[2021-12-15] MEDS: PLAQUENIL PO SCH (09:22)
[2021-12-15] MEDS: OXYBUTYNIN CHLORIDE ER PO SCH (09:22)
[2021-12-15 16:50] LABS: INR 4.31 (0.8-1.3)
--- NOTE | 2021-12-15 18:04 | PCM.PROG ---
Progress Note - Progress Note for Day of Date of Exam: 12/15/21 - Subjective Subjective: Mrs. Dee is a 76-year-old white female who was an ER admission after a near syncopal episode. The patient has chronic obstructive pulmonary disease with emphysema. She was recently released from the hospital with chronic obstructive pulmonary disease exacerbation which resulted in a fall with multiple right rib fractures. The patient was released home to stay with family member and reported that she took her oxygen off while trying to get a shower and got extremely weak and nearly passed out. She had pneumonia on her admission chest xray. She also reports that she had some tarry stool. The patient does have a history of lower GI bleed, so we ordered and occult stool on her, which she has not had a bowel movement since admission. The patient is on long-term anticoagulant therapy. Her INR was 5.16 today and her Coumadin is being held with recheck INR 4.31. Denies any s/s bleeding since admission. HGB 9.8 and she is on iron replacement therapy for chronic FE deficiency anemia. She is on Protonix 40 mg two times a day, as well as Rocephin for treatment of chronic obstructive pulmonary disease. Her chest x-ray on admission showed pneumonia. This morning it showed hyperinfiltration but free of infiltrates and also showed subacute right rib fractures. The patient had some hypokalemia with her potassium corrected at 4.0. BUN and creatnine were stable. Her magnesium is up to 2.2 after replacement therapy. - Past Medical Family Social History Past Med/Fam/Surg Hx: No changes since H&P Allergies: Allergies meperidine [From Demerol] Allergy (Verified 10/13/21 10:35) FLU VIRUS VACCINE Allergy (Uncoded 02/25/21 11:30) - Review of Systems ROS: No change since H&P - Vital Signs and I&O's Vital Signs: Temperature 97.6 F Pulse Rate [Left Brachial] 90 Pulse Rate 101 Respiratory Rate 18 Blood Pressure [Left Arm] 130/70 Blood Pressure [Right Arm] 141/72 Blood Pressure 145/67 O2 Sat by Pulse Oximetry 95 Intake and Output: Intake & Output 12/13/21 12/14/21 12/15/21 12/16/21 11:59 11:59 11:59 11:59 Intake Total 1081 / 1081 1227 / 1227 110 / 110 Balance 1081 / 1081 1227 / 1227 110 / 110 - Physical Exam Oriented: Normal Eyes: Normal Ear: Normal Nose: Normal Throat: Normal Respiratory: Diminished, Wheezes Cardiovascular: Normal : Normal Auscultation: Bowel Sounds: Normal Tenderness: Normal Skin: Decreased Turgur Musculoskeletal: Back:Lumbar, Tender Psychiatric: Anxiety Affect: Anxious Speech Pattern: Clear, Appropriate - Laboratory and Diagnostics Result Diagrams: 12/15/21 05:14 12/15/21 05:14 Labs: Laboratory WBC 7.0 X10^3/uL (3.6-10.0) 12/15/21 05:14 RBC 3.11 X10^6/uL (3.5-5.4) L 12/15/21 05:14 Hgb 9.8 g/dL (12.0-16.0) L 12/15/21 05:14 Hct 28.1 % (36.0-47.0) L 12/15/21 05:14 MCV 90.1 fL (80.0-100.0) 12/15/21 05:14 MCH 31.4 pg (27.0-34.0) 12/15/21 05:14 MCHC 34.9 g/dL (33.0-35.0) 12/15/21 05:14 RDW 13.8 % (11.6-16.5) 12/15/21 05:14 Plt Count 175 X10^3/uL (150.0-450.0) 12/15/21 05:14 MPV 8.9 fL (7.4-11.0) 12/15/21 05:14 Neut % (Auto) 67.3 % (42.0-75.0) 12/15/21 05:14 Lymph % (Auto) 19.8 % (21.0-51.0) L 12/15/21 05:14 [place] % (Auto) 9.3 % (0.0-13.0) 12/15/21 05:14 Eos % (Auto) 2.7 % (0.9-2.9) 12/15/21 05:14 Baso % (Auto) 0.9 % (0.2-1.0) 12/15/21 05:14 Neut # (Auto) 4.7 x10^3/uL (2.2-4.8) 12/15/21 05:14 Lymph # (Auto) 1.4 X10^3/uL (1.3-2.9) 12/15/21 05:14 [place] # (Auto) 0.6 x10^3/uL (0.3-0.8) 12/15/21 05:14 Eos # (Auto) 0.2 x10^3/uL (0.0-0.2) 12/15/21 05:14 Baso # (Auto) 0.1 X10^3/uL (0.0-0.1) 12/15/21 05:14 Absolute Nucleated RBC 0.0 /100WBC 12/15/21 05:14 PT 39.4 SECONDS (11.8-14.3) 12/15/21 16:00 INR Target Range - 12/15/21 16:00 INR 4.31 (0.8-1.3) H 12/15/21 16:00 APTT 37.9 SECONDS (22.9-36.5) H 12/13/21 14:08 PTT Comment - 12/13/21 14:08 Sodium 140 mmol/L (136-145) 12/15/21 05:14 Corrected Sodium TNP 12/15/21 05:14 Potassium 4.0 mmol/L (3.5-5.1) 12/15/21 05:14 Chloride 107 mmol/L (98-107) 12/15/21 05:14 Carbon Dioxide 25.9 mmol/L (21-32) 12/15/21 05:14 BUN 15 mg/dL (7-18) 12/15/21 05:14 Creatinine 1.14 mg/dL (0.55-1.02) H 12/15/21 05:14 Est GFR (MDRD) Af Amer 60 (>60) 12/15/21 05:14 Est GFR (MDRD) Non-Af 49 (>60) L 12/15/21 05:14 Glucose 103 mg/dL (65-99) H 12/15/21 05:14 Calcium 7.5 mg/dL (8.5-10.1) L 12/15/21 05:14 Corrected Calcium 8.5 mg/dL (8.5-10.1) 12/15/21 05:14 Magnesium 2.2 mg/dL (1.7-2.9) 12/15/21 05:14 Total Bilirubin 0.20 mg/dL (0.2-1.0) 12/15/21 05:14 AST 37 Units/L (15-37) 12/15/21 05:14 ALT 35 Units/L (12-78) 12/15/21 05:14 Alkaline Phosphatase 106 Units/L (46-116) 12/15/21 05:14 Troponin I High Sens 93.9 ng/L (4.0-60.0) H* 12/14/21 20:15 Total Protein 5.7 g/dL (6.4-8.2) L 12/15/21 05:14 Albumin 2.8 g/dL (3.4-5.0) L 12/15/21 05:14 Globulin 2.9 g/dL (2.5-4.5) 12/15/21 05:14 Albumin/Globulin Ratio 1.0 Ratio (1.1-2.1) L 12/15/21 05:14 - Plan (1) Pneumonia Status: Acute Plan: RESP THERAPY, IV ATBX, DUE NEBS. DAILY INR, HOLDING COUMADIN. BLEEDING PRECAUTIONS. PAIN CONTROL, GENTLE IV HYDRATION. CARDIAC MONITORING, VERIFY HOME MEDICATION. 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
[2021-12-15] MEDS: LIPITOR TAB 80 MG PO SCH (21:00)
[2021-12-15] MEDS: NYSTATIN SUSP MT SCH (21:01)
[2021-12-16] MEDS: DUONEB 0.5 MG/3 MG (3 mL) NEB SCH ×3 (00:35→08:47)
[2021-12-16] MEDS: CARAFATE ORAL SUSP PO SCH (05:39)
[2021-12-16 06:43] LABS: BASOPHILS # (AUTO) 0.1 X10^3/uL (0.0-0.1); BASOPHILS % (AUTO) 0.7 % (0.2-1.0); EOSINOPHILS # (AUTO) 0.2 x10^3/uL (0.0-0.2); EOSINOPHILS % (AUTO) 2.2 % (0.9-2.9); HEMATOCRIT 28.5 % (36.0-47.0); HEMOGLOBIN 10.2 g/dL (12.0-16.0); LYMPHOCYTES # (AUTO) 1.3 X10^3/uL (1.3-2.9); LYMPHOCYTES % (AUTO) 19.1 % (21.0-51.0); MEAN CORPUSCULAR HEMOGLOBIN 32.2 pg (27.0-34.0); MEAN CORPUSCULAR HGB CONC 35.9 g/dL (33.0-35.0); MEAN CORPUSCULAR VOLUME 89.8 fL (80.0-100.0); MEAN PLATELET VOLUME 8.6 fL (7.4-11.0); MONOCYTES # (AUTO) 0.6 x10^3/uL (0.3-0.8); MONOCYTES % (AUTO) 8.5 % (0.0-13.0); NEUTROPHILS # (AUTO) 4.8 x10^3/uL (2.2-4.8); NEUTROPHILS % (AUTO) 69.5 % (42.0-75.0); RED BLOOD COUNT 3.18 X10^6/uL (3.5-5.4); RED CELL DISTRIBUTION WIDTH 13.7 % (11.6-16.5)
[2021-12-16 06:44] LABS: INR 3.71 (0.8-1.3)
[2021-12-16 06:49] LABS: ALANINE AMINOTRANSFERASE 36 Units/L (12-78); ALKALINE PHOSPHATASE 99 Units/L (46-116); ASPARTATE AMINO TRANSFERASE 37 Units/L (15-37); BLOOD UREA NITROGEN 13 mg/dL (7-18); CALCIUM 7.9 mg/dL (8.5-10.1); CARBON DIOXIDE 27.1 mmol/L (21-32); CHLORIDE 107 mmol/L (98-107); COR CA(FOR HYPOALB) 8.7 mg/dL (8.5-10.1); CREATININE 0.91 mg/dL (0.55-1.02); SODIUM 142 mmol/L (136-145); TOTAL PROTEIN 6.1 g/dL (6.4-8.2); eGFR NON BLACK RACES > 60 (>60)
--- NOTE | 2021-12-16 07:39 | RAD ---
HISTORYSOB; COPDSTUDYCHEST, 1 [id number]/2022.TECHNIQUEAP view of the chestFINDINGSCardiac and mediastinal contours are within normal limits. Lungs are hyperexpanded. Known right lower rib fractures. No consolidation or segmental lung collapse. Blunted left costophrenic sulcus. No pneumothorax.IMPRESSIONKnown right-sided rib fractures. No pneumothorax. Blunted left costophrenic sulcus can be seen with small pleural effusion or pleuro-parynchemal scarring. Background of COPD.Electronically signed by: Barry Sánchez (Dec 16, 2021 07:37:19)
[2021-12-16] MEDS ORDERED: NORVASC TAB 2.5 MG ONE (07:51)
[2021-12-16] MEDS ORDERED: ZOLOFT ONE (07:51)
[2021-12-16 08:14] VITALS: BP 135/63
[2021-12-16] MEDS: PROTONIX INJ 40 MG VIAL IVP SCH (08:41)
[2021-12-16] MEDS: PULMICORT NEB TX 0.5 MG NEB SCH (08:47)
[2021-12-16] MEDS: HEMOCYTE-PLUS PO SCH (08:48)
[2021-12-16] MEDS: OXYBUTYNIN CHLORIDE ER PO SCH (08:48)
[2021-12-16] MEDS: NORVASC TAB 2.5 MG PO SCH (08:48)
[2021-12-16] MEDS: ROCEPHIN VIAL 1 GRAM 1 G in NS 100 ML IV 100 ML IV SCH (08:49)
[2021-12-16] MEDS: ZOLOFT PO SCH (08:49)
[2021-12-16] MEDS: PLAQUENIL PO SCH (08:49)
[2021-12-16] MEDS: NYSTATIN SUSP MT SCH (11:31)
[2021-12-16] MEDS: ROBITUSSIN DM PO SCH (11:32)
== END 2021-12-16 11:20 | disposition home health service (06) ==
LOC: MED/SURG 13:40 → ER 13:40 → MED/SURG 17:05
PROVIDERS: ADMIT Internal Medicine; ATTEND Internal Medicine
DX: I10 Essential (primary) hypertension; M32.8 Other forms of systemic lupus erythematosus; J44.1 Chronic obstructive pulmonary disease with (acute) exacerbation; K21.9 Gastro-esophageal reflux disease without esophagitis; R55 Syncope and collapse; R06.02 Shortness of breath; S22.41XA Multiple fractures of ribs, right side, initial encounter for closed fracture; X58.XXXA Exposure to other specified factors, initial encounter; Z79.01 Long term (current) use of anticoagulants; R26.89 Other abnormalities of gait and mobility; J18.8 Other pneumonia, unspecified organism

== ENCOUNTER 2022-06-17 11:43 | Observation (INO) ==
[2022-06-17] MEDS ORDERED: ZOFRAN INJ 4 MG VIAL IVP ONE (11:59)
[2022-06-17] MEDS ORDERED: DECADRON INJ IVP ONE (11:59)
--- NOTE | 2022-06-17 12:01 | DR.GENAD ---
HPI Time Seen Time Seen by Provider: 06/17/22 11:55 PCP Primary Care Physician: KATALINA Complaint/Symptoms Chief Complaint Doctors Comments: 76 y/o female brought in via EMS for evaluation. Pt + for Covid 2 days ago. Has had a worsening cough, productive of some sputum. Had worsening dyspnea this am. + h/o COPD, uses O2 at home when needed. + nausea, with 2 episodes of vomiting this am. + low grade temp. + generalized weakness. Chief Complaint:: PT STATES SHE TESTED POSITIVE FOR COVID ON 06/14/22 AND SINCE THEN HER BREATHING HAS BEEN GETTING WORSE. SHE HAS A HX OF SEVERE COPD SHE STATES. Self Treatment fo Chief Complaint: ALBUTEROL BREATHING TREATMENTS COVID-19 Coronavirus risk:travel/contact w/high risk person: Yes Has patient experienced Coronavirus symptoms: Yes Coronavirus symptoms experienced: Fever, Coughing and Shortness of Breath Nurses notes reviewed Nurses Notes Review: Yes Source History Provided: Patient Mode of Arrival Mode of Arrival: EMS Timing Onset of Chief Complaint: 06/14/22 PMH PMH Past Medical History: Yes Past Medical History: Anxiety, Arthritis, Asthma, COPD, GERD and Hypertension Past Surgical History: Yes Surgical History: Hysterectomy and Tonsillectomy Family History History of Family Medical Conditions: Yes Family Medical History: Diabetes Mellitus, Cancer, [place], Coronary Artery Disease and Hypertension Social History Does patient currently use any type of tobacco product: Yes Have you used tobacco products in the last 12 months: Yes Type of Tobacco Use: Cigarettes Does any household member use tobacco: Yes Alcohol Use: None Do you use any recreational Drugs:: No Lives With: Family Lives Where: Home Travel Risk Coronavirus risk:travel/contact w/high risk person: Yes Has patient experienced Coronavirus symptoms: Yes Coronavirus symptoms experienced: Fever, Coughing and Shortness of Breath Infectious screening In the last 2 months have you had wt loss of >10#?: NO Have you had fever, night sweats or hemotysis?: No Have you traveled outside the country in the last 6 months?: No Isolation: Droplet ROS Review of Systems Constitutional: Fever and Weakness Eyes: No Symptoms Reported ENTM: No Symptoms Reported Respiratoy: Productive Cough and Short of Breath Cardiovascular: No Symptoms Reported Gastrointestinal/Abdominal: Nausea and Vomiting Genitourinary: No Symptoms Reported Neurological: Weakness Musculoskeletal: No Symptoms Reported Integumentary: No Symptoms Reported Psychiatric: No Symptoms Reported All Other Systems: Reviewed and Negative PE Vital Signs Vitals: Temperature 99.5 F Pulse Rate 85 Respiratory Rate 29 Blood Pressure [Left Arm] 154/69 Blood Pressure 142/65 O2 Sat by Pulse Oximetry 81 General General Appearance: Alert, In No Apparent Distress and Anxious Eyes Eye exam: PERRL and EOMI ENT ENT Exam: Normal Oropharynx and Mucous Membranes Moist Neck Neck Exam: Normal Inspection and Full ROM; negative Tenderness Respiratory Respiratory Exam: Normal Lung Sounds Bilat and Other (decreased breath sounds at bases bilaterally); negative Accessory Muscle Use or Respiratory Distress Cardiovascular Cardiovascular Exam: Regular Rate, Normal Rhythm and Normal Heart Sounds Abdominal Exam Abdominal Exam: Normal Bowel Sounds and Soft; negative Tenderness Extremities Extremities Exam: Other (+ abrasions, contusions to bilateral shins); negative Edema Back Back Exam: Normal Inspection Neurologic Neurological Exam: Alert, Oriented X3 and CN II-XII Intact; negative Motor Sensory Deficit Psychiatric Psychiatric Exam: Normal Affect Skin Skin Exam: Warm and Dry COURSE Treatment Treatment: 76 y/o female with COPD, + for Covid 2 days ago. Was seen here then, d/c'd on Paxlovid. Pt feeling worse, with increasing dyspnea. W/u initiated. Pt given IV decadron, 6 mg (was given 8 mg IV here 2 dasy ago). CXR with COPD changes, is rotated. Has some blurring of the R cardiac silhouette, possible early pneumonia, but probably more due to the rotation. Pt given IV rocephin for possible coverage of a developing bacterial pneumonia. Discussed with her covering attending, Dr Zamora. Pt well known to him, and he will admit. ROR Labs Reviewed Laboratory Results Reviewed?: Yes Result Diagrams: 06/17/22 12:23 06/17/22 12:23 Laboratory: WBC 4.8 X10^3/uL (3.6-10.0) 06/17/22 12:23 RBC 3.43 X10^6/uL (3.5-5.4) L 06/17/22 12:23 Hgb 10.5 g/dL (12.0-16.0) L 06/17/22 12:23 Hct 30.9 % (36.0-47.0) L 06/17/22 12:23 MCV 90.2 fL (80.0-100.0) 06/17/22 12: MCH 30.7 pg (27.0-34.0) 06/17/22 12: MCHC 34.0 g/dL (33.0-35.0) 06/17/22 12: RDW 13.6 % (11.6-16.5) 06/17/22 12: Plt Count 166 X10^3/uL (150.0-450.0) 06/17/22 12: MPV 8.9 fL (7.4-11.0) 06/17/22 12: Neut % (Auto) 80.0 % (42.0-75.0) H 06/17/22 12: Lymph % (Auto) 8.1 % (21.0-51.0) L 06/17/22 12: [place] % (Auto) 10.1 % (0.0-13.0) 06/17/22 12: Eos % (Auto) 0.9 % (0.9-2.9) 06/17/22 12: Baso % (Auto) 0.9 % (0.2-1.0) 06/17/22: Neut # (Auto) 3.9 x10^3/uL (2.2-4.8) 06/17/22: Lymph # (Auto) 0.4 X10^3/uL (1.3-2.9) L 06/17/22: [place] # (Auto) 0.5 x10^3/uL (0.3-0.8) 06/17/22 12: Eos # (Auto) 0.0 x10^3/uL (0.0-0.2) 06/17/22 12: Baso # (Auto) 0.0 X10^3/uL (0.0-0.1) 06/17/22 12: Absolute Nucleated RBC 0.0 /100WBC 06/17/22 12:23 Sodium 143 mmol/L (136-145) 06/17/22 12:23 Corrected Sodium TNP 06/17/22 12:23 Potassium 4.3 mmol/L (3.5-5.1) 06/17/22 12:23 Chloride 106 mmol/L (98-107) 06/17/22 12:23 Carbon Dioxide 28.9 mmol/L (21-32) 06/17/22 12:23 BUN 21 mg/dL (7-18) H 06/17/22 12:23 Creatinine 1.21 mg/dL (0.55-1.02) H 06/17/22 12:23 Est GFR (MDRD) Af Amer 56 (>60) L 06/17/22 12:23 Est GFR (MDRD) Non-Af 46 (>60) L 06/17/22 12:23 Glucose 79 mg/dL (65-99) 06/17/22 12:23 Lactic Acid 0.9 mmol/L (0.4-2.0) 06/17/22 12: Calcium 8.6 mg/dL (8.5-10.1) 06/17/22 12: Corrected Calcium TNP 06/17/22 12: Total Bilirubin 0.40 mg/dL (0.2-1.0) 06/17/22 12:23 AST 71 Units/L (15-37) H 06/17/22 12:23 ALT 63 Units/L (12-78) 06/17/22 12:23 Alkaline Phosphatase 77 Units/L (46-116) 06/17/22 12:23 Total Protein 6.5 g/dL (6.4-8.2) 06/17/22 12:23 Albumin 3.6 g/dL (3.4-5.0) 06/17/22 12:23 Globulin 2.9 g/dL (2.5-4.5) 06/17/22 12:23 Albumin/Globulin Ratio 1.2 Ratio (1.1-2.1) 06/17/22 12:23 Specimen Type Clean catch urine 06/17/22 13:32 Urine Color Yellow (YELLOW) 06/17/22 13:32 Urine Appearance Clear (CLEAR) 06/17/22 13:32 Urine pH 6.0 (5.0 - 8.0) 06/17/22 13:32 Ur Specific [place] 1.025 (1.000-1.030) 06/17/22 13:32 Urine Protein Negative (NEGATIVE) 06/17/22 13:32 Urine Glucose (UA) Negative (NEGATIVE) 06/17/22 13:32 Urine Ketones Negative (NEGATIVE) 06/17/22 13:32 Urine Blood Negative (NEGATIVE) 06/17/22 13:32 Urine Nitrite Negative (NEGATIVE) 06/17/22 13:32 Urine Bilirubin Negative (NEGATIVE) 06/17/22 13:32 Urine Urobilinogen Normal (NORMAL) 06/17/22 13:32 Ur Leukocyte Esterase Negative (NEGATIVE) 06/17/22 13:32 SARS CoV-2 RNA Rapid [place] Positive (NEGATIVE) A 06/17/22 13:32 + for Covid. XRAY XRAY Interpreted by: Both X-ray Results: + COPD changes, + rotated Opioid Opioid Risk Tool Age (Chilo box if 16-45): No History of Preadolescent Sexual Abuse: No Total: 0 Total Score Risk Category: Low Risk Copyright: Real ALLEN predicting aberrant behaviors Discharge Plan Diagnosis Discharge Problem: COVID, COPD exacerbation Discharge Plan Patient Disposition: 09 ADMITTED INPATIENT Condition: Stable Prescriptions: No Action atorvastatin 80 mg tablet 1 tab PO QDAY sertraline 100 mg tablet 1 tab PO QDAY warfarin 2.5 mg tablet 1 tab PO DAILY amlodipine 2.5 mg tablet 1 tab PO QDAY omeprazole 40 mg capsule,delayed release(DR/EC) 1 cap PO BID pantoprazole 40 mg tablet,delayed release (DR/EC) 1 tab PO BID cyanocobalamin (vitamin B-12) 1,000 mcg/mL solution IM DAILY warfarin 5 mg tablet 1 tab PO QDAY oxybutynin chloride 5 mg tablet extended release 24hr 1 tab PO QDAY hydroxychloroquine 200 mg tablet 1 tab PO QDAY albuterol sulfate 90 mcg/actuation HFA aerosol inhaler 90 inh inhalation PRN PRN Hemocyte-Plus 106 mg iron- 1 mg capsule 1 cap PO QDAY Zenpep 20,000-63,000- 84,000 unit capsule,delayed release(DR/EC) 1 cap PO DAILY Paxlovid (EUA) 150-100 mg tablets,dose pack See Rx Instructions .ROUTE .COMPLEX Qty: 20 0RF Rx Instructions: take ONE 150 mg tablet of nirmatrelvir with ONE 100 mg tablet of ritonavir twice daily for 5 days ondansetron HCl 4 mg tablet 4 mg PO Q6H Qty: 40 0RF Health Concerns: Post Hospitalization: new medications and changes needed to prevent readmission or further decline. Pt educated and given instructions on all concerns. Plan of Treatment: Continue with present treatment and follow up plan. Pt is to keep follow up appointment as instructed and take medications as ordered. Orders to Discharge Patient Discharge Orders: Transfer (Routine); Ordered 06/17/22 Ordered By: Omid Michael Follow ups/Referrals Follow ups/Referrals: FOX VALDEZ [Primary Care Provider] - 3 days
[2022-06-17] MEDS ORDERED: NS 500 ML IV 500 ML IV ONE (12:28)
[2022-06-17] MEDS ORDERED: ZOFRAN INJ 4 MG VIAL ONE (12:28)
[2022-06-17] MEDS ORDERED: DECADRON INJ ONE (12:28)
[2022-06-17] MEDS: NS 500 ML IV 500 ML IV SCH ×2 (12:32→18:14)
[2022-06-17 12:38] LABS: BASOPHILS % (AUTO) 0.9 % (0.2-1.0); EOSINOPHILS % (AUTO) 0.9 % (0.9-2.9); HEMATOCRIT 30.9 % (36.0-47.0); HEMOGLOBIN 10.5 g/dL (12.0-16.0); LYMPHOCYTES # (AUTO) 0.4 X10^3/uL (1.3-2.9); LYMPHOCYTES % (AUTO) 8.1 % (21.0-51.0); MEAN CORPUSCULAR HEMOGLOBIN 30.7 pg (27.0-34.0); MEAN CORPUSCULAR VOLUME 90.2 fL (80.0-100.0); MEAN PLATELET VOLUME 8.9 fL (7.4-11.0); MONOCYTES # (AUTO) 0.5 x10^3/uL (0.3-0.8); MONOCYTES % (AUTO) 10.1 % (0.0-13.0); NEUTROPHILS # (AUTO) 3.9 x10^3/uL (2.2-4.8); RED BLOOD COUNT 3.43 X10^6/uL (3.5-5.4); RED CELL DISTRIBUTION WIDTH 13.6 % (11.6-16.5); WHITE BLOOD COUNT 4.8 X10^3/uL (3.6-10.0)
[2022-06-17 12:51] LABS: ALANINE AMINOTRANSFERASE 63 Units/L (12-78); ALBUMIN 3.6 g/dL (3.4-5.0); ALKALINE PHOSPHATASE 77 Units/L (46-116); ASPARTATE AMINO TRANSFERASE 71 Units/L (15-37); BLOOD UREA NITROGEN 21 mg/dL (7-18); CALCIUM 8.6 mg/dL (8.5-10.1); CARBON DIOXIDE 28.9 mmol/L (21-32); CHLORIDE 106 mmol/L (98-107); CREATININE 1.21 mg/dL (0.55-1.02); SODIUM 143 mmol/L (136-145); TOTAL PROTEIN 6.5 g/dL (6.4-8.2); eGFR NON BLACK RACES 46 (>60)
[2022-06-17 12:54] LABS: LACTIC ACID 0.9 mmol/L (0.4-2.0)
[2022-06-17] MEDS ORDERED: ROCEPHIN VIAL 1 GRAM 1 G in NS 100 ML IV 100 ML IV ONE (13:07)
[2022-06-17] MEDS ORDERED: NS 100 ML IV 100 ML ONE (13:18)
[2022-06-17] MEDS ORDERED: ROCEPHIN VIAL 1 GRAM ONE (13:18)
[2022-06-17 13:51] LABS: BILIRUBIN,URINE NEGATIVE (NEGATIVE); BLOOD/HEMOGLOBIN,URINE NEGATIVE (NEGATIVE); GLUCOSE, URINE NEGATIVE (NEGATIVE); KETONES,URINE NEGATIVE (NEGATIVE); LEUKOCYTE ESTERASE ,URINE NEGATIVE (NEGATIVE); NITRITES,URINE NEGATIVE (NEGATIVE); PROTEIN,URINE NEGATIVE (NEGATIVE); UROBILINOGEN,URINE NORMAL (NORMAL)
[2022-06-17 14:09] LABS: APPEARANCE,URINE CLEAR (CLEAR); COLOR,URINE YELLOW (YELLOW)
--- NOTE | 2022-06-17 15:09 | RAD ---
HISTORYSOB COPD, EMPHYSEMASTUDYCHEST, 1 [id number]/09/2023.FINDINGSThe trachea is midline. The cardiac silhouette is normally in size. Aorta is tortuous with atherosclerosis. Pulmonary blood flow is congested. There is some mild stranding in the right base suggestive of atelectasis. The left base is grossly clear. There appear to be some older rib fractures. Thorax otherwise unremarkable.IMPRESSIONInterstitial prominence suggesting some mild edema and right base atelectasis.Electronically signed by: Des Dial (Jun 17, 2022 15:08:20)
[2022-06-17] MEDS ORDERED: NS 1,000 ML IV 1,000 ML ONE (17:32)
[2022-06-17] MEDS: PULMICORT NEB TX 0.5 MG NEB SCH (21:25)
[2022-06-17] MEDS: BROVANA IN SCH (21:25)
[2022-06-18] MEDS: NS 1,000 ML IV 1,000 ML IV SCH ×4 (02:53→21:15)
[2022-06-18 05:30] LABS: BASOPHILS % (AUTO) 0.3 % (0.2-1.0); EOSINOPHILS % (AUTO) 0.1 % (0.9-2.9); HEMOGLOBIN 8.9 g/dL (12.0-16.0); LYMPHOCYTES # (AUTO) 0.6 X10^3/uL (1.3-2.9); LYMPHOCYTES % (AUTO) 13.2 % (21.0-51.0); MEAN CORPUSCULAR HEMOGLOBIN 30.7 pg (27.0-34.0); MEAN CORPUSCULAR VOLUME 90.2 fL (80.0-100.0); MEAN PLATELET VOLUME 9.2 fL (7.4-11.0); MONOCYTES # (AUTO) 0.6 x10^3/uL (0.3-0.8); MONOCYTES % (AUTO) 13.4 % (0.0-13.0); NEUTROPHILS # (AUTO) 3.3 x10^3/uL (2.2-4.8); RED BLOOD COUNT 2.89 X10^6/uL (3.5-5.4); RED CELL DISTRIBUTION WIDTH 13.4 % (11.6-16.5); WHITE BLOOD COUNT 4.5 X10^3/uL (3.6-10.0)
[2022-06-18 05:42] LABS: ALANINE AMINOTRANSFERASE 51 Units/L (12-78); ALBUMIN 2.6 g/dL (3.4-5.0); ALKALINE PHOSPHATASE 69 Units/L (46-116); ASPARTATE AMINO TRANSFERASE 54 Units/L (15-37); BLOOD UREA NITROGEN 22 mg/dL (7-18); CALCIUM 7.4 mg/dL (8.5-10.1); CARBON DIOXIDE 27.4 mmol/L (21-32); CHLORIDE 109 mmol/L (98-107); COR CA(FOR HYPOALB) 8.5 mg/dL (8.5-10.1); COR NA(FOR HYPERGLY) 141 mmol/L (136-145); CREATININE 0.99 mg/dL (0.55-1.02); SODIUM 140 mmol/L (136-145); TOTAL PROTEIN 5.2 g/dL (6.4-8.2); eGFR NON BLACK RACES 58 (>60)
[2022-06-18] MEDS: PULMICORT NEB TX 0.5 MG NEB SCH ×2 (08:34→20:35)
[2022-06-18] MEDS: BROVANA IN SCH ×2 (08:34→20:35)
[2022-06-18] MEDS ORDERED: REMDESIVIR 200 MG in NS 100 ML IV 140 ML IV ONE (09:55)
[2022-06-18] MEDS: PROTONIX INJ 40 MG VIAL IVP SCH ×2 (11:23→21:14)
[2022-06-18] MEDS ORDERED: ROBITUSSIN DM PO PRN (11:27)
--- NOTE | 2022-06-18 11:41 | DR.H&P ---
H&P - History & Physical for Day of: H&P Date: 06/17/22 - Chief Complaint Chief Complaint: COVID +, SOB, CCC - History of Present Illness History of Present Illness: PT IS 76 WF, ER ADMISSION AFTER PRESENTING WITH CO STATES SHE TESTED POSITIVE FOR COVID ON 06/14/22 AND SINCE THEN HER BREATHING HAS BEEN GETTING WORSE. SHE HAS A HX OF SEVERE COPD SHE STATES. PT HAS PMH OF CAD, COPD WITH RESP FAILURE, ANEMIA, LUPUS, HTN, OA AND NURSING HOME ANTICOAG THERAPY WITH WARFARIN. - Past Medical History Past Medical History: Hypertension, Anxiety, COPD, Asthma, GERD, Arthritis Additional Medical History: LUPUS - Past Surgical History Surgical History: Hysterectomy, Tonsillectomy - Family History Family Medical History: Diabetes Mellitus, Cancer, [place], Coronary Artery Disease, Hypertension - Social History Does patient currently use any type of tobacco product: Yes Have you used tobacco products in the last 12 months: Yes Type of Tobacco Use: Cigarettes How many years tobacco product used: 60 Does any household member use tobacco: No Alcohol Use: None Drug Use: None - Medications Home Medications: meperidine [From Demerol] Allergy (Verified 06/15/22 19:18) EGGS Allergy (Uncoded 06/17/22 18:27) FLU VIRUS VACCINE Allergy (Uncoded 06/15/22 19:18) LATEX Adverse Reaction (Uncoded 06/17/22 18:27) CONTINUE taking the following medications ondansetron HCl 4 mg tablet 4 mg PO Q6H PRN Nausea 06/17/22 [History] - Review of Systems Constitutional: Weakness, Malaise Eyes: No Symptoms Reported ENT: Nose Congestion Respiratory: SOB with Excertion, Wheezing Cardiovascular: No Symptoms Reported Gastrointestinal: Nausea Genitourinary: No Symptoms Reported Musculoskeletal: Back Pain Skin: Wound (SKIN TEAR) Neurological: Weakness - Physical Exam Vital Signs: Temperature 98.5 F Pulse Rate [Left Radial] 63 Pulse Rate 88 Respiratory Rate 20 Blood Pressure [Left Arm] 136/61 Blood Pressure 142/65 O2 Sat by Pulse Oximetry 99 Oriented: Normal Eyes: Normal Ear: Normal Nose: Normal Throat: Dry Respiratory: Wheezes Throughout Cardiovascular: Normal : Normal Auscultation: Bowel Sounds: Normal Palpation: Normal Tenderness: Normal Skin: Decreased Turgur, Wound (RLE SKIN TEAR) Musculoskeletal: Motor Deficit (GENERALIZED WEAKNESS) Psychiatric: Anxiety Mood Description: Anxious Affect: Anxious Speech Pattern: Clear, Appropriate - Assessment/Plan (1) Pneumonia due to COVID-19 virus Status: Acute Plan: ADMIT, IV ABTX, RESP THERAPY AND SUPPLEMENTAL O2. GENTLE IV HYDRATION, STRICT I&OS. VERIFY AND RESUME HOME MEDICATON. REPEAT AM CXR, PT/INR. 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
--- NOTE | 2022-06-18 11:52 | PCM.PROG ---
Progress Note - Progress Note for Day of Date of Exam: 06/18/22 - Subjective Subjective: PT IS 76 WF, ER ADMISSION WITH COVID 19 PNEUMONIA. PT IS CURRENTLY ON IV ATBX, RESP THERAPY, IV REMDESIVIR AND SOLU MEDROL. PT'S HOME MEDICATION HAS BEEN REVIEWED AND RESUMED. PT CO FATIGUE AND COUGHING THIS AM. PT ALSO HAS A SKIN TEAR TO HER RLE THAT IS "TENDER". PLAN TO REPEAT AM CXR AND CONTINUE WITH CURRENTLY MEDICATION REGIMEN. - Past Medical Family Social History Past Med/Fam/Surg Hx: No changes since H&P Allergies: Allergies meperidine [From Demerol] Allergy (Verified 06/15/22 19:18) EGGS Allergy (Uncoded 06/17/22 18:27) FLU VIRUS VACCINE Allergy (Uncoded 06/15/22 19:18) LATEX Adverse Reaction (Uncoded 06/17/22 18:27) - Review of Systems ROS: No change since H&P - Vital Signs and I&O's Vital Signs: Temperature 98.5 F Pulse Rate [Left Radial] 63 Pulse Rate 88 Respiratory Rate 20 Blood Pressure [Left Arm] 136/61 Blood Pressure 142/65 O2 Sat by Pulse Oximetry 99 Intake and Output: Intake & Output 06/15/22 06/16/22 06/17/22 06/18/22 11:59 11:59 11:59 11:59 Intake Total 1040 / 1040 Balance 1040 / 1040 - Physical Exam Oriented: Normal Eyes: Normal Ear: Normal Nose: Normal Throat: Dry Respiratory: Diminished, Wheezes Cardiovascular: Normal : Normal Auscultation: Bowel Sounds: Normal Tenderness: Normal Skin: Decreased Turgur, Wound (RLE SKIN TEAR) Musculoskeletal: Motor Deficit (GENERALIZED WEAKNESS) Psychiatric: Anxiety Mood Description: Anxious Affect: Anxious Speech Pattern: Clear, Appropriate - Laboratory and Diagnostics Result Diagrams: 06/18/22 04:55 06/18/22 04:55 Labs: Laboratory WBC 4.5 X10^3/uL (3.6-10.0) 06/18/22 04:55 RBC 2.89 X10^6/uL (3.5-5.4) L 06/18/22 04:55 Hgb 8.9 g/dL (12.0-16.0) L 06/18/22 04:55 Hct 26.0 % (36.0-47.0) L 06/18/22 04:55 MCV 90.2 fL (80.0-100.0) 06/18/22 04:55 MCH 30.7 pg (27.0-34.0) 06/18/22 04:55 MCHC 34.0 g/dL (33.0-35.0) 06/18/22 04:55 RDW 13.4 % (11.6-16.5) 06/18/22 04:55 Plt Count 142 X10^3/uL (150.0-450.0) L 06/18/22 04:55 MPV 9.2 fL (7.4-11.0) 06/18/22 04:55 Neut % (Auto) 73.0 % (42.0-75.0) 06/18/22 04:55 Lymph % (Auto) 13.2 % (21.0-51.0) L 06/18/22 04:55 [place] % (Auto) 13.4 % (0.0-13.0) H 06/18/22 04:55 Eos % (Auto) 0.1 % (0.9-2.9) L 06/18/22 04:55 Baso % (Auto) 0.3 % (0.2-1.0) 06/18/22 04:55 Neut # (Auto) 3.3 x10^3/uL (2.2-4.8) 06/18/22 04:55 Lymph # (Auto) 0.6 X10^3/uL (1.3-2.9) L 06/18/22 04:55 [place] # (Auto) 0.6 x10^3/uL (0.3-0.8) 06/18/22 04:55 Eos # (Auto) 0.0 x10^3/uL (0.0-0.2) 06/18/22 04:55 Baso # (Auto) 0.0 X10^3/uL (0.0-0.1) 06/18/22 04:55 Absolute Nucleated RBC 0.1 /100WBC 06/18/22 04:55 PT 13.0 SECONDS (11.8-14.3) 06/18/22 10:10 INR Target Range - 06/18/22 10:10 INR 1.00 (0.8-1.3) 06/18/22 10:10 Sodium 140 mmol/L (136-145) 06/18/22 04:55 Corrected Sodium 141 mmol/L (136-145) 06/18/22 04:55 Potassium 4.1 mmol/L (3.5-5.1) 06/18/22 04:55 Chloride 109 mmol/L (98-107) H 06/18/22 04:55 Carbon Dioxide 27.4 mmol/L (21-32) 06/18/22 04:55 BUN 22 mg/dL (7-18) H 06/18/22 04:55 Creatinine 0.99 mg/dL (0.55-1.02) 06/18/22 04:55 Est GFR (MDRD) Af Amer > 60 (>60) 06/18/22 04:55 Est GFR (MDRD) Non-Af 58 (>60) L 06/18/22 04:55 Glucose 125 mg/dL (65-99) H 06/18/22 04:55 Lactic Acid 0.9 mmol/L (0.4-2.0) 06/17/22 12:23 Calcium 7.4 mg/dL (8.5-10.1) L 06/18/22 04:55 Corrected Calcium 8.5 mg/dL (8.5-10.1) 06/18/22 04:55 Total Bilirubin 0.20 mg/dL (0.2-1.0) 06/18/22 04:55 AST 54 Units/L (15-37) H 06/18/22 04:55 ALT 51 Units/L (12-78) 06/18/22 04:55 Alkaline Phosphatase 69 Units/L (46-116) 06/18/22 04:55 Total Protein 5.2 g/dL (6.4-8.2) L 06/18/22 04:55 Albumin 2.6 g/dL (3.4-5.0) L 06/18/22 04:55 Globulin 2.6 g/dL (2.5-4.5) 06/18/22 04:55 Albumin/Globulin Ratio 1.0 Ratio (1.1-2.1) L 06/18/22 04:55 Specimen Type Clean catch urine 06/17/22 13:32 Urine Color Yellow (YELLOW) 06/17/22 13:32 Urine Appearance Clear (CLEAR) 06/17/22 13:32 Urine pH 6.0 (5.0 - 8.0) 06/17/22 13:32 Ur Specific [place] 1.025 (1.000-1.030) 06/17/22 13:32 Urine Protein Negative (NEGATIVE) 06/17/22 13:32 Urine Glucose (UA) Negative (NEGATIVE) 06/17/22 13:32 Urine Ketones Negative (NEGATIVE) 06/17/22 13:32 Urine Blood Negative (NEGATIVE) 06/17/22 13:32 Urine Nitrite Negative (NEGATIVE) 06/17/22 13:32 Urine Bilirubin Negative (NEGATIVE) 06/17/22 13:32 Urine Urobilinogen Normal (NORMAL) 06/17/22 13:32 Ur Leukocyte Esterase Negative (NEGATIVE) 06/17/22 13:32 SARS CoV-2 RNA Rapid [place] Positive (NEGATIVE) A 06/17/22 13:32 - Plan (1) Pneumonia due to COVID-19 virus Status: Acute Plan: IV ABTX, RESP THERAPY AND SUPPLEMENTAL O2. GENTLE IV HYDRATION, STRICT I&OS. VERIFY AND RESUME HOME MEDICATON. REPEAT AM CXR, PT/INR. 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
[2022-06-18] MEDS: HEMOCYTE-PLUS PO SCH (14:01)
[2022-06-18] MEDS: SOLU-Medrol 40 MG VIAL IVP SCH ×2 (14:01→21:14)
[2022-06-18] MEDS: ROCEPHIN VIAL 1 GRAM 1 G in NS 100 ML IV 100 ML IV SCH (14:01)
[2022-06-18 14:34] VITALS: BMI 17.4
[2022-06-19] MEDS: SOLU-Medrol 40 MG VIAL IVP SCH (05:44)
[2022-06-19 05:52] LABS: BASOPHILS % (AUTO) 0.2 % (0.2-1.0); HEMATOCRIT 28.7 % (36.0-47.0); HEMOGLOBIN 9.7 g/dL (12.0-16.0); LYMPHOCYTES # (AUTO) 0.4 X10^3/uL (1.3-2.9); LYMPHOCYTES % (AUTO) 12.3 % (21.0-51.0); MEAN CORPUSCULAR HEMOGLOBIN 30.6 pg (27.0-34.0); MEAN CORPUSCULAR HGB CONC 33.9 g/dL (33.0-35.0); MEAN CORPUSCULAR VOLUME 90.4 fL (80.0-100.0); MONOCYTES # (AUTO) 0.2 x10^3/uL (0.3-0.8); MONOCYTES % (AUTO) 5.1 % (0.0-13.0); NEUTROPHILS # (AUTO) 2.6 x10^3/uL (2.2-4.8); NEUTROPHILS % (AUTO) 82.4 % (42.0-75.0); RED BLOOD COUNT 3.17 X10^6/uL (3.5-5.4); RED CELL DISTRIBUTION WIDTH 13.6 % (11.6-16.5); WHITE BLOOD COUNT 3.2 X10^3/uL (3.6-10.0)
[2022-06-19 06:06] LABS: ALANINE AMINOTRANSFERASE 60 Units/L (12-78); ALBUMIN 2.7 g/dL (3.4-5.0); ALKALINE PHOSPHATASE 73 Units/L (46-116); ASPARTATE AMINO TRANSFERASE 60 Units/L (15-37); BLOOD UREA NITROGEN 20 mg/dL (7-18); CALCIUM 7.8 mg/dL (8.5-10.1); CARBON DIOXIDE 25.9 mmol/L (21-32); CHLORIDE 110 mmol/L (98-107); COR CA(FOR HYPOALB) 8.8 mg/dL (8.5-10.1); COR NA(FOR HYPERGLY) 144 mmol/L (136-145); SODIUM 143 mmol/L (136-145); TOTAL PROTEIN 5.5 g/dL (6.4-8.2); eGFR NON BLACK RACES > 60 (>60)
[2022-06-19] MEDS ORDERED: NORVASC TAB 2.5 MG ONE (08:01)
[2022-06-19] MEDS ORDERED: ZOLOFT ONE (08:01)
[2022-06-19 08:18] VITALS: BP 150/66
[2022-06-19] MEDS: NS 1,000 ML IV 1,000 ML IV SCH (08:32)
[2022-06-19] MEDS: HEMOCYTE-PLUS PO SCH (08:47)
[2022-06-19] MEDS: ROCEPHIN VIAL 1 GRAM 1 G in NS 100 ML IV 100 ML IV SCH (08:49)
[2022-06-19] MEDS: PROTONIX INJ 40 MG VIAL IVP SCH (08:49)
--- NOTE | 2022-06-19 08:52 | RAD ---
HISTORYShortness of breathSTUDYChest AP [id number]/22/2023FINDINGSHear t size is normal. Manisha are normal. Aorta is calcified. Lungs are hyperinflated. Chronic appearing interstitial lung changes are present. No acute alveolar infiltrates, areas of consolidation, or definite congestive heart failure identified. Bony thorax appears intact.IMPRESSIONHyperinflation with diffuse chronic appearing interstitial lung changesNo acute infiltrates or areas of consolidation identifiedElectronically signed by: CHELSEA CHATTERJEE (Jun 19, 2022 08:51:40)
[2022-06-19] MEDS: PULMICORT NEB TX 0.5 MG NEB SCH (08:58)
[2022-06-19] MEDS: BROVANA IN SCH (08:58)
[2022-06-19] MEDS ORDERED: NORVASC TAB 2.5 MG PO SCH (09:00)
[2022-06-19] MEDS ORDERED: COUMADIN TAB 2.5 MG (JANTOVEN) PO SCH (09:00)
[2022-06-19] MEDS ORDERED: [UNRECOGNIZED DRUG - OTHER] PO SCH ×2 (09:00)
[2022-06-19] MEDS ORDERED: PLAQUENIL PO SCH (09:00)
[2022-06-19] MEDS ORDERED: LIPITOR TAB 80 MG PO SCH ×2 (09:00→21:00)
[2022-06-19] MEDS ORDERED: LIPASE PROTEASE AMYLASE PO SCH ×2 (09:00)
[2022-06-19] MEDS ORDERED: ZOLOFT PO SCH (09:00)
[2022-06-19] MEDS ORDERED: REMDESIVIR 100 MG in NS 250 ML IV 250 ML IV SCH (11:00)
== END 2022-06-19 12:15 | disposition home or self-care (01) ==
LOC: ER 11:43 → MED/SURG 11:43
PROVIDERS: ADMIT Internal Medicine; ATTEND Nurse Practitioner Family
DX: I10 Essential (primary) hypertension; I25.10 Atherosclerotic heart disease of native coronary artery without angina pectoris; K80.80 Other cholelithiasis without obstruction; Z99.81 Dependence on supplemental oxygen; R11.2 Nausea with vomiting, unspecified; R06.2 Wheezing; Z79.01 Long term (current) use of anticoagulants; K21.9 Gastro-esophageal reflux disease without esophagitis; U07.1 COVID-19; J12.82 Pneumonia due to coronavirus disease 2019; M32.8 Other forms of systemic lupus erythematosus; J44.9 Chronic obstructive pulmonary disease, unspecified

== ENCOUNTER 2022-12-22 11:41 | Inpatient (IN) ==
[2022-12-22] MEDS ORDERED: DUONEB 0.5 MG/3 MG (3 mL) NEB ONE ×2 (12:03→12:07)
[2022-12-22] MEDS ORDERED: SOLU-Medrol 125 MG VIAL IVP ONE (12:03)
[2022-12-22] MEDS ORDERED: SOLU-Medrol 125 MG VIAL ONE (12:06)
--- NOTE | 2022-12-22 12:06 | DR.SOBA ---
HPI Time Seen Time Seen by Provider: 12/22/22 12:05 Complaints Chief Complaint Doctors Comments: This patient complained of progressive shortness of breath over the last week. She does have a history of COPD and was recently seen at her primary care provider's office and given 1 g of Rocephin IM and told to take her DuoNebs as prescribed she is also on home oxygen at 3 L and she stated that even with the DuoNebs and home oxygen she still has shortness of breath. PMH PMH Past Medical History: Anxiety, Arthritis, Asthma, COPD, GERD and Hypertension Past Surgical History: Yes Surgical History: Hysterectomy and Tonsillectomy Family History Family Medical History: Diabetes Mellitus, Cancer, [place], Coronary Artery Disease and Hypertension Social History Do you use any recreational Drugs:: No ROS Review of Systems Constitutional: Other (Progressive shortness of breath) Eyes: No Symptoms Reported ENTM: No Symptoms Reported Respiratoy: Non-Productive Cough and Short of Breath Cardiovascular: No Symptoms Reported Gastrointestinal/Abdominal: No Symptoms Reported Genitourinary: No Symptoms Reported Neurological: No Symptoms Reported Musculoskeletal: No Symptoms Reported Integumentary: No Symptoms Reported Hematologic/Lymphatic: No Symptoms Reported Endocrine: No Symptoms Reported Psychiatric: Anxiety PE Vital Signs Vitals: Vital Signs Temperature 98.1 F Pulse Rate 98 Pulse Rate 83 Pulse Rate 87 Pulse Rate 96 Pulse Rate 92 Pulse Rate 93 Pulse Rate 95 Pulse Rate 101 Pulse Rate 99 Pulse Rate 100 Pulse Rate 87 Pulse Rate 88 Pulse Rate 93 Pulse Rate 99 Pulse Rate 97 Pulse Rate 90 Pulse Rate 92 Pulse Rate 94 Pulse Rate 98 Pulse Rate 104 Pulse Rate 111 Pulse Rate 110 Pulse Rate 105 Pulse Rate 107 Pulse Rate 105 Pulse Rate 105 Respiratory Rate 42 Respiratory Rate 44 Respiratory Rate 44 Respiratory Rate 64 Respiratory Rate 62 Respiratory Rate 52 Respiratory Rate 73 Respiratory Rate 49 Respiratory Rate 60 Respiratory Rate 35 Respiratory Rate 34 Respiratory Rate 33 Respiratory Rate 29 Respiratory Rate 28 Respiratory Rate 48 Respiratory Rate 50 Respiratory Rate 48 Respiratory Rate 47 Respiratory Rate 53 Respiratory Rate 63 Respiratory Rate 37 Respiratory Rate 22 Respiratory Rate 27 Respiratory Rate 29 Respiratory Rate 28 Respiratory Rate 24 Blood Pressure 156/72 Blood Pressure 134/62 Blood Pressure 132/63 Blood Pressure 169/77 Blood Pressure 137/67 Blood Pressure 140/70 Blood Pressure 150/72 Blood Pressure 150/70 Blood Pressure 153/72 Blood Pressure 151/71 Blood Pressure 172/74 Blood Pressure 165/80 Blood Pressure 162/81 Blood Pressure 184/85 O2 Sat by Pulse Oximetry 99 O2 Sat by Pulse Oximetry 98 O2 Sat by Pulse Oximetry 97 O2 Sat by Pulse Oximetry 97 O2 Sat by Pulse Oximetry 97 O2 Sat by Pulse Oximetry 96 O2 Sat by Pulse Oximetry 95 O2 Sat by Pulse Oximetry 94 O2 Sat by Pulse Oximetry 94 O2 Sat by Pulse Oximetry 95 O2 Sat by Pulse Oximetry 96 O2 Sat by Pulse Oximetry 91 O2 Sat by Pulse Oximetry 99 O2 Sat by Pulse Oximetry 98 O2 Sat by Pulse Oximetry 98 O2 Sat by Pulse Oximetry 98 O2 Sat by Pulse Oximetry 97 O2 Sat by Pulse Oximetry 96 O2 Sat by Pulse Oximetry 96 O2 Sat by Pulse Oximetry 98 O2 Sat by Pulse Oximetry 100 O2 Sat by Pulse Oximetry 95 O2 Sat by Pulse Oximetry 98 O2 Sat by Pulse Oximetry 96 General Limitations: Physical Limitation (shortness of breath upon ambulation) General Appearance: In Distress (moderate distress) Head Head Exam: Normal Inspection, Atraumatic and Normocephalic Eyes Eye exam: Normal Appearance, PERRL and EOMI ENT ENT Exam: Normal Exam, Normal Oropharynx and Normal External Ear Exam Neck Neck Exam: Normal Inspection, Full ROM and Trachea Midline Chest Chest Inspection: Normal Inspection and Symmetric Chest Wall Rise Respiratory Respiratory Exam: Prolonged Expiratory Phase Respiratory Exam: Bilateral: Wheezing Cardiovascular Cardiovascular Exam: Tachycardia Abdominal Exam Abdominal Exam: Normal Inspection, Normal Bowel Sounds and Soft Extremities Extremities Exam: Normal Inspection and Full ROM Back Back Exam: Normal Inspection and Full ROM Neurologic Neurological Exam: Alert, Oriented X3 and CN II-XII Intact Psychiatric Psychiatric Exam: Agitated and Anxious MDM Differential Diagnosis Differential Diagnosis: COPD, Pneumonia and Respiratory Insufficiency COURSE Treatment Treatment: This patient remained relatively stable in the emergency room after we gave her initial Solu-Medrol 125 mg IV and we gave her a DuoNeb. The patient was put on oxygen initially at 3 L/min and her O2 sat improved from 90 to about 96%. We did cardiac evaluation this patient and initially her troponin was 168.3 but on a previous admission she did have troponin was in the 1 5060 range. We did a second troponin on and it went down to 156.2. We did a D-dimer that was 0.58. She had a chest x-ray does show mild cardiomegaly suspect right lower lobe nonspecific airspace infiltrate with bronchial wall thickening and bronchie ctasis. This patient did not have a white blood cell count was 5.2 and the metabolic panel was normal. Patient was discussed with Dr. Lamar at 1806 and we going admit the patient for COPD exacerbation and right lower lobe pneumonia. The patient and the troponin was discussed with the patient and we let her know that she had a elevated troponin on last visit in the 150s range and they did not diagnose her with acute myocardial infarction she by actually had a EKG on the last admission that shows some may be nonspecific changes that may have said some type of septal infarct this particular EKG when compared to that EKG showed that that had disappeared and the EKG patient was advised that we are going admit her for COPD exacerbation and for right lower lobe pneumonia. She was agreeable to the admission. ROR Labs Reviewed Laboratory Results Reviewed?: Yes 12/22/22 12:04 12/22/22 12:04 Laboratory: WBC 5.2 X10^3/uL (3.6-10.0) 12/22/22 12:04 RBC 3.62 X10^6/uL (3.5-5.4) 12/22/22 12:04 Hgb 11.3 g/dL (12.0-16.0) L 12/22/22 12:04 Hct 33.4 % (36.0-47.0) L 12/22/22 12:04 MCV 92.1 fL (80.0-100.0) 12/22/22 12:04 MCH 31.1 pg (27.0-34.0) 12/22/22 12:04 MCHC 33.8 g/dL (33.0-35.0) 12/22/22 12:04 RDW 13.1 % (11.6-16.5) 12/22/22 12:04 Plt Count 129 X10^3/uL (150.0-450.0) L 12/22/22 12:04 MPV 9.4 fL (7.4-11.0) 12/22/22 12:04 Neut % (Auto) 71.5 % (42.0-75.0) 12/22/22 12:04 Lymph % (Auto) 14.6 % (21.0-51.0) L 12/22/22 12:04 [place] % (Auto) 11.3 % (0.0-13.0) 12/22/22 12:04 Eos % (Auto) 1.7 % (0.9-2.9) 12/22/22 12:04 Baso % (Auto) 0.9 % (0.2-1.0) 12/22/22 12:04 Neut # (Auto) 3.7 x10^3/uL (2.2-4.8) 12/22/22 12:04 Lymph # (Auto) 0.8 X10^3/uL (1.3-2.9) L 12/22/22 12:04 [place] # (Auto) 0.6 x10^3/uL (0.3-0.8) 12/22/22 12:04 Eos # (Auto) 0.1 x10^3/uL (0.0-0.2) 12/22/22 12:04 Baso # (Auto) 0.0 X10^3/uL (0.0-0.1) 12/22/22 12:04 Absolute Nucleated RBC 0.1 /100WBC 12/22/22 12:04 D-Dimer 0.58 ug/ml (0.0-0.57) H 12/22/22 12:04 Sodium 141 mmol/L (136-145) 12/22/22 12:04 Corrected Sodium TNP 12/22/22 12:04 Potassium 3.6 mmol/L (3.5-5.1) 12/22/22 12:04 Chloride 104 mmol/L (98-107) 12/22/22 12:04 Carbon Dioxide 31.5 mmol/L (21-32) 12/22/22 12:04 BUN 14 mg/dL (7-18) 12/22/22 12:04 Creatinine 0.82 mg/dL (0.55-1.02) 12/22/22 12:04 Est GFR (MDRD) Af Amer > 60 (>60) 12/22/22 12:04 Est GFR (MDRD) Non-Af > 60 (>60) 12/22/22 12:04 Glucose 104 mg/dL (65-99) H 12/22/22 12:04 Lactic Acid 0.6 mmol/L (0.4-2.0) 12/22/22 16:29 Calcium 8.1 mg/dL (8.5-10.1) L 12/22/22 12:04 Corrected Calcium 8.8 mg/dL (8.5-10.1) 12/22/22 12:04 Total Bilirubin 0.40 mg/dL (0.2-1.0) 12/22/22 12:04 AST 73 Units/L (15-37) H 12/22/22 12:04 ALT 69 Units/L (12-78) 12/22/22 12:04 Alkaline Phosphatase 84 Units/L (46-116) 12/22/22 12:04 Creatine Kinase 147 Units/L (26-192) 12/22/22 12:04 Troponin I High Sens 156.2 ng/L (4.0-60.0) H* 12/22/22 15:04 B-Natriuretic Peptide 116 pg/mL (0-79) H 12/22/22 12:04 Total Protein 6.4 g/dL (6.4-8.2) 12/22/22 12:04 Albumin 3.1 g/dL (3.4-5.0) L 12/22/22 12:04 Globulin 3.3 g/dL (2.5-4.5) 12/22/22 12:04 Albumin/Globulin Ratio 0.9 Ratio (1.1-2.1) L 12/22/22 12:04 Opioid Opioid Risk Tool Age (Chilo box if 16-45): No History of Preadolescent Sexual Abuse: No Total: 0 Total Score Risk Category: Low Risk Copyright: Real ALLEN predicting aberrant behaviors Discharge Plan Diagnosis Discharge Problem: Acute exacerbation of chronic obstructive pulmonary disease, Right lower lobe pneumonia Discharge Plan Patient Disposition: 09 ADMITTED INPATIENT Condition: Stable Prescriptions: No Action atorvastatin 80 mg tablet 80 mg PO QDAY sucralfate 100 mg/mL suspension 100 mg PO PRN PRN sertraline 100 mg tablet 100 mg PO QDAY amlodipine 2.5 mg tablet 2.5 mg PO QDAY omeprazole 40 mg capsule,delayed release(DR/EC) 40 mg PO BID pantoprazole 40 mg tablet,delayed release (DR/EC) 40 mg PO BID cyanocobalamin (vitamin B-12) 1,000 mcg/mL solution 1,000 mcg IM WEEKLY oxybutynin chloride 5 mg tablet extended release 24hr 5 mg PO QDAY hydroxychloroquine 200 mg tablet 200 mg PO QDAY Hemocyte-Plus 106 mg iron- 1 mg capsule 1 cap PO QDAY Eliquis 5 mg tablet 5 mg PO BID Health Concerns: Post Hospitalization: new medications and changes needed to prevent readmission or further decline. Pt educated and given instructions on all concerns. Plan of Treatment: Continue with present treatment and follow up plan. Pt is to keep follow up appointment as instructed and take medications as ordered. Orders to Discharge Patient Discharge Orders: Transfer (Routine); Ordered 12/22/22 Ordered By: Romaine Santiago Follow ups/Referrals Follow ups/Referrals: FOX VALDEZ [Primary Care Provider] - 3 days
[2022-12-22 12:20] LABS: BASOPHILS % (AUTO) 0.9 % (0.2-1.0); EOSINOPHILS # (AUTO) 0.1 x10^3/uL (0.0-0.2); EOSINOPHILS % (AUTO) 1.7 % (0.9-2.9); HEMATOCRIT 33.4 % (36.0-47.0); HEMOGLOBIN 11.3 g/dL (12.0-16.0); LYMPHOCYTES # (AUTO) 0.8 X10^3/uL (1.3-2.9); LYMPHOCYTES % (AUTO) 14.6 % (21.0-51.0); MEAN CORPUSCULAR HEMOGLOBIN 31.1 pg (27.0-34.0); MEAN CORPUSCULAR HGB CONC 33.8 g/dL (33.0-35.0); MEAN CORPUSCULAR VOLUME 92.1 fL (80.0-100.0); MEAN PLATELET VOLUME 9.4 fL (7.4-11.0); MONOCYTES # (AUTO) 0.6 x10^3/uL (0.3-0.8); MONOCYTES % (AUTO) 11.3 % (0.0-13.0); NEUTROPHILS # (AUTO) 3.7 x10^3/uL (2.2-4.8); NEUTROPHILS % (AUTO) 71.5 % (42.0-75.0); PLATELET COUNT 129 X10^3/uL (150.0-450.0); RED BLOOD COUNT 3.62 X10^6/uL (3.5-5.4); RED CELL DISTRIBUTION WIDTH 13.1 % (11.6-16.5); WHITE BLOOD COUNT 5.2 X10^3/uL (3.6-10.0)
[2022-12-22 12:44] LABS: ALANINE AMINOTRANSFERASE 69 Units/L (12-78); ALBUMIN 3.1 g/dL (3.4-5.0); ALKALINE PHOSPHATASE 84 Units/L (46-116); ASPARTATE AMINO TRANSFERASE 73 Units/L (15-37); BLOOD UREA NITROGEN 14 mg/dL (7-18); CALCIUM 8.1 mg/dL (8.5-10.1); CARBON DIOXIDE 31.5 mmol/L (21-32); CHLORIDE 104 mmol/L (98-107); COR CA(FOR HYPOALB) 8.8 mg/dL (8.5-10.1); CREATINE KINASE 147 Units/L (26-192); CREATININE 0.82 mg/dL (0.55-1.02); GLUCOSE 104 mg/dL (65-99); POTASSIUM 3.6 mmol/L (3.5-5.1); SODIUM 141 mmol/L (136-145); TOTAL PROTEIN 6.4 g/dL (6.4-8.2); eGFR NON BLACK RACES > 60 (>60)
--- NOTE | 2022-12-22 12:48 | EKG ---
Test Reason : chest pain Blood Pressure : */* mmHG Vent. Rate : 102 BPM Atrial Rate : 102 BPM P-R Int : 162 ms QRS Dur : 88 ms QT Int : 320 ms P-R-T Axes : 85 100 62 degrees QTc Int : 417 ms Sinus tachycardia Biatrial enlargement Rightward axis Pulmonary disease pattern Septal infarct (cited on or before 12-SEP-2022) Abnormal ECG When compared with ECG of 12-SEP-2022 03:45, ST no longer elevated in Lateral leads Confirmed by Randy Manuel ([id number]) on 12/23/2022 10:19:28 AM Referred By: Confirmed By: Randy Manuel
--- NOTE | 2022-12-22 13:41 | RAD ---
EXAM:CHEST, 1 VIEWHISTORY:SOB, CHEST PAIN;COMPARISON:September 12, 2022.FINDINGS:Mild cardiomegaly.Suspect right lower lobe nonspecific airspace infiltrate with bronchial wall thickening and bronchiectasis, worse.No pneumothorax or effusion.The bony thorax appears age appropriate.IMPRESSION:1. Mild cardiomegaly.2. Suspect right lower lobe nonspecific airspace infiltrate with bronchial wall thickening and bronchiectasis, worse.THIS IS AN ELECTRONICALLY VERIFIED FINAL [id number]/22/2022 1:38 PM - Electronically signed by Doyle Johnson DO
[2022-12-22] MEDS ORDERED: ROCEPHIN VIAL 1 GRAM IV ONE (16:57)
[2022-12-22] MEDS ORDERED: ROCEPHIN VIAL 1 GRAM ONE (17:05)
[2022-12-22] MEDS ORDERED: PULMICORT NEB TX 0.5 MG NEB ONE (19:26)
[2022-12-22] MEDS: ROCEPHIN VIAL 1 GRAM 1 G in NS 100 ML IV 100 ML IV SCH (19:49)
[2022-12-22] MEDS ORDERED: CARAFATE ORAL SUSP PO PRN (20:57)
[2022-12-22] MEDS: PULMICORT NEB TX 0.5 MG NEB SCH (21:00)
[2022-12-22] MEDS ORDERED: PATIENT'S HOME MEDICATION (Omeprazole 40 mg capsule,delayed release(DR/EC)) PO SCH (21:00)
[2022-12-22] MEDS: ELIQUIS PO SCH (21:22)
[2022-12-22] MEDS: PROTONIX TAB 40 MG PO SCH (21:22)
[2022-12-22] MEDS: PriLOSEC PO SCH (21:22)
[2022-12-22] MEDS: SOLU-Medrol 40 MG VIAL IVP SCH (21:23)
[2022-12-23 04:54] LABS: BASOPHILS % (AUTO) 0.1 % (0.2-1.0); HEMATOCRIT 29.6 % (36.0-47.0); HEMOGLOBIN 10.2 g/dL (12.0-16.0); LYMPHOCYTES # (AUTO) 0.2 X10^3/uL (1.3-2.9); LYMPHOCYTES % (AUTO) 4.6 % (21.0-51.0); MEAN CORPUSCULAR HEMOGLOBIN 31.6 pg (27.0-34.0); MEAN CORPUSCULAR HGB CONC 34.3 g/dL (33.0-35.0); MEAN CORPUSCULAR VOLUME 91.9 fL (80.0-100.0); MEAN PLATELET VOLUME 9.7 fL (7.4-11.0); MONOCYTES # (AUTO) 0.3 x10^3/uL (0.3-0.8); MONOCYTES % (AUTO) 5.9 % (0.0-13.0); NEUTROPHILS # (AUTO) 4.4 x10^3/uL (2.2-4.8); NEUTROPHILS % (AUTO) 89.4 % (42.0-75.0); PLATELET COUNT 119 X10^3/uL (150.0-450.0); RED BLOOD COUNT 3.22 X10^6/uL (3.5-5.4); RED CELL DISTRIBUTION WIDTH 12.9 % (11.6-16.5); WHITE BLOOD COUNT 4.9 X10^3/uL (3.6-10.0)
[2022-12-23 05:04] LABS: ALANINE AMINOTRANSFERASE 54 Units/L (12-78); ALBUMIN 2.8 g/dL (3.4-5.0); ALKALINE PHOSPHATASE 85 Units/L (46-116); ASPARTATE AMINO TRANSFERASE 49 Units/L (15-37); BLOOD UREA NITROGEN 23 mg/dL (7-18); CARBON DIOXIDE 28.4 mmol/L (21-32); CHLORIDE 103 mmol/L (98-107); COR NA(FOR HYPERGLY) 139 mmol/L (136-145); CREATININE 1.04 mg/dL (0.55-1.02); GLUCOSE 158 mg/dL (65-99); POTASSIUM 3.5 mmol/L (3.5-5.1); SODIUM 138 mmol/L (136-145); TOTAL PROTEIN 5.9 g/dL (6.4-8.2); eGFR NON BLACK RACES 55 (>60)
[2022-12-23] MEDS: DUONEB 0.5 MG/3 MG (3 mL) NEB SCH ×5 (05:30→20:30)
[2022-12-23] MEDS ORDERED: CONSULT PHARMACY - POTASSIUM & MAGNESIUM XX SCH (07:00)
[2022-12-23] MEDS: PULMICORT NEB TX 0.5 MG NEB SCH ×2 (08:20→20:30)
[2022-12-23] MEDS ORDERED: NORVASC TAB 2.5 MG ONE (08:38)
[2022-12-23] MEDS ORDERED: ZOLOFT ONE (08:38)
[2022-12-23] MEDS ORDERED: K-DUR TAB 20 MEQ PO SCH (09:00)
[2022-12-23] MEDS ORDERED: PATIENT'S HOME MEDICATION (Iron-Folic Acid-Mv, Min Cmb#15 [Hemocyte-Plus] 106 mg iron- 1 m PO SCH (09:00)
[2022-12-23] MEDS ORDERED: MAG-OX TAB PO SCH (09:00)
[2022-12-23] MEDS: NORVASC TAB 2.5 MG PO SCH (09:37)
[2022-12-23] MEDS: ZOLOFT PO SCH (09:37)
[2022-12-23] MEDS: HEMOCYTE-PLUS PO SCH (09:38)
[2022-12-23] MEDS: ELIQUIS PO SCH ×2 (09:38→20:27)
[2022-12-23] MEDS: LIPITOR TAB 80 MG PO SCH (09:39)
[2022-12-23] MEDS: OXYBUTYNIN CHLORIDE ER PO SCH (09:45)
[2022-12-23] MEDS: PLAQUENIL PO SCH (09:47)
[2022-12-23] MEDS: PriLOSEC PO SCH ×2 (09:48→20:30)
[2022-12-23] MEDS: SOLU-Medrol 40 MG VIAL IVP SCH ×2 (09:48→20:28)
[2022-12-23] MEDS: PROTONIX TAB 40 MG PO SCH ×2 (09:48→20:27)
[2022-12-23] MEDS: ROCEPHIN VIAL 1 GRAM 1 G in NS 100 ML IV 100 ML IV SCH (09:48)
--- NOTE | 2022-12-23 13:07 | DR.H&P ---
H&P History & Physical for Day of: H&P Date: 12/23/22 Chief Complaint Chief Complaint: Cough, shortness of breath Weakness Allergies Allergies Allergy/AdvReac Type Severity Reaction Status Date / Time egg Allergy Unknown Verified 12/15/22 11:10 Influenza Virus Vaccines Allergy Unknown Verified 12/15/22 11:11 meperidine [From Demerol] Allergy Verified 06/15/22 19:18 latex AdvReac Unknown Verified 12/15/22 11:10 History of Present Illness History of Present Illness: Patient is a 77-year-old female past medical history of COPD (BL~3L) that presented with cough, shortness of breath, and weakness that has been progressively getting worse for the past week. She reports sputum production. She had been taking DuoNebs at home without relief. Labs/imaging: WBC 4.9, hemoglobin 10.2, platelets 119, sodium 138, potassium 3.5, creatinine 1.04, glucose 158, blood cultures pending, AIT swab pending, chest x-ray was obtained that revealed: 1. Mild cardiomegaly. 2. Suspect right lower lobe nonspecific airspace infiltrate with bronchial wall thickening and b ronchiectasis, worse. Will admit patient for pneumonia and COPD exacerbation. Patient is on 3 L nasal cannula supplemental oxygen. She is also receiving IV Solu-Medrol 40 mg every 12h, IV Rocephin 1 g daily. Scheduled bronchodilators. Wean/titrate oxygen as indicated. Restart home medications. Continue to closely monitor patient and follow-up labs/imaging in the morning. Past Medical History Past Medical History: Anxiety, Arthritis, Asthma, COPD, GERD and Hypertension Additional Medical History: LUPUS Past Surgical History Surgical History: Hysterectomy and Tonsillectomy Family History Family Medical History: Diabetes Mellitus, Cancer, [place], Coronary Artery Disease and Hypertension Social History Does patient currently use any type of tobacco product: Yes Have you used tobacco products in the last 12 months: Yes Type of Tobacco Use: Cigarettes Does any household member use tobacco: No Alcohol Use: None Drug Use: None Medications Home Medications: Home Medications Medication Instructions Recorded Confirmed Type amlodipine 2.5 mg tablet 2.5 mg PO QDAY 12/22/22 12/22/22 History apixaban 5 mg tablet (Eliquis) 5 mg PO BID 12/22/22 12/22/22 History atorvastatin 80 mg tablet 80 mg PO QDAY 12/22/22 12/22/22 History cyanocobalamin (vitamin B-12) 1,000 mcg IM WEEKLY 12/22/22 12/22/22 History 1,000 mcg/mL injection solution hydroxychloroquine 200 mg tablet 200 mg PO QDAY 12/22/22 12/22/22 History iron-folic acid-multivitamin, 1 cap PO QDAY 12/22/22 12/22/22 History mineral comb#15 106 mg iron-1 mg capsule (Hemocyte-Plus) omeprazole 40 mg capsule,delayed 40 mg PO BID 12/22/22 12/22/22 History release oxybutynin chloride 5 mg 5 mg PO QDAY 12/22/22 12/22/22 History tablet,extended release 24 hr pantoprazole 40 mg tablet,delayed 40 mg PO BID 12/22/22 12/22/22 History release sertraline 100 mg tablet 100 mg PO QDAY 12/22/22 12/22/22 History sucralfate 100 mg/mL oral 100 mg PO PRN PRN 12/22/22 12/22/22 History suspension Labs 12/23/22 04:20 12/23/22 04:20 Labs: Laboratory WBC 4.9 X10^3/uL (3.6-10.0) 12/23/22 04:20 RBC 3.22 X10^6/uL (3.5-5.4) L 12/23/22 04:20 Hgb 10.2 g/dL (12.0-16.0) L 12/23/22 04:20 Hct 29.6 % (36.0-47.0) L 12/23/22 04:20 MCV 91.9 fL (80.0-100.0) 12/23/22 04:20 MCH 31.6 pg (27.0-34.0) 12/23/22 04:20 MCHC 34.3 g/dL (33.0-35.0) 12/23/22 04:20 RDW 12.9 % (11.6-16.5) 12/23/22 04:20 Plt Count 119 X10^3/uL (150.0-450.0) L 12/23/22 04:20 MPV 9.7 fL (7.4-11.0) 12/23/22 04:20 Neut % (Auto) 89.4 % (42.0-75.0) H 12/23/22 04:20 Lymph % (Auto) 4.6 % (21.0-51.0) L 12/23/22 04:20 [place] % (Auto) 5.9 % (0.0-13.0) 12/23/22 04:20 Eos % (Auto) 0.0 % (0.9-2.9) L 12/23/22 04:20 Baso % (Auto) 0.1 % (0.2-1.0) L 12/23/22 04:20 Neut # (Auto) 4.4 x10^3/uL (2.2-4.8) 12/23/22 04:20 Lymph # (Auto) 0.2 X10^3/uL (1.3-2.9) L 12/23/22 04:20 [place] # (Auto) 0.3 x10^3/uL (0.3-0.8) 12/23/22 04:20 Eos # (Auto) 0.0 x10^3/uL (0.0-0.2) 12/23/22 04:20 Baso # (Auto) 0.0 X10^3/uL (0.0-0.1) 12/23/22 04:20 Absolute Nucleated RBC 0.0 /100WBC 12/23/22 04:20 D-Dimer 0.58 ug/ml (0.0-0.57) H 12/22/22 12:04 Sodium 138 mmol/L (136-145) 12/23/22 04:20 Corrected Sodium 139 mmol/L (136-145) 12/23/22 04:20 Potassium 3.5 mmol/L (3.5-5.1) 12/23/22 04:20 Chloride 103 mmol/L (98-107) 12/23/22 04:20 Carbon Dioxide 28.4 mmol/L (21-32) 12/23/22 04:20 BUN 23 mg/dL (7-18) H 12/23/22 04:20 Creatinine 1.04 mg/dL (0.55-1.02) H 12/23/22 04:20 Est GFR (MDRD) Af Amer > 60 (>60) 12/23/22 04:20 Est GFR (MDRD) Non-Af 55 (>60) L 12/23/22 04:20 Glucose 158 mg/dL (65-99) H 12/23/22 04:20 Lactic Acid 0.6 mmol/L (0.4-2.0) 12/22/22 16:29 Calcium 8.0 mg/dL (8.5-10.1) L 12/23/22 04:20 Corrected Calcium 9.0 mg/dL (8.5-10.1) 12/23/22 04:20 Magnesium 1.7 mg/dL (2.0-2.9) L 12/23/22 04:20 Total Bilirubin 0.20 mg/dL (0.2-1.0) 12/23/22 04:20 AST 49 Units/L (15-37) H 12/23/22 04:20 ALT 54 Units/L (12-78) 12/23/22 04:20 Alkaline Phosphatase 85 Units/L (46-116) 12/23/22 04:20 Creatine Kinase 147 Units/L (26-192) 12/22/22 12:04 Troponin I High Sens 104.8 ng/L (4.0-60.0) H* 12/23/22 08:40 B-Natriuretic Peptide 116 pg/mL (0-79) H 12/22/22 12:04 Total Protein 5.9 g/dL (6.4-8.2) L 12/23/22 04:20 Albumin 2.8 g/dL (3.4-5.0) L 12/23/22 04:20 Globulin 3.1 g/dL (2.5-4.5) 12/23/22 04:20 Albumin/Globulin Ratio 0.9 Ratio (1.1-2.1) L 12/23/22 04:20 Review of Systems Constitutional: Weakness Eyes: No Symptoms Reported ENT: No Symptoms Reported Respiratory: Cough, Shortness of Breath and Wheezing Cardiovascular: No Symptoms Reported Gastrointestinal: No Symptoms Reported Genitourinary: No Symptoms Reported Musculoskeletal: No Symptoms Reported Skin: No Symptoms Reported Neurological: No Symptoms Reported Physical Exam Vital Signs: Vital Signs Temperature 98.1 F Temperature 98.0 F Temperature 97.5 F Temperature 97.1 F Temperature 97.1 F Pulse Rate 109 Pulse Rate 123 Pulse Rate 116 Pulse Rate 127 Pulse Rate 92 Pulse Rate 92 Pulse Rate 92 Pulse Rate 78 Respiratory Rate 24 Respiratory Rate 31 Respiratory Rate 30 Respiratory Rate 20 Respiratory Rate 21 Respiratory Rate 21 Respiratory Rate 26 Blood Pressure 174/79 Blood Pressure 166/79 Blood Pressure 185/96 Blood Pressure 133/61 Blood Pressure 135/64 Blood Pressure 135/64 Blood Pressure 139/64 O2 Sat by Pulse Oximetry 98 O2 Sat by Pulse Oximetry 97 O2 Sat by Pulse Oximetry 97 O2 Sat by Pulse Oximetry 100 O2 Sat by Pulse Oximetry 97 O2 Sat by Pulse Oximetry 97 O2 Sat by Pulse Oximetry 97 O2 Sat by Pulse Oximetry 97 Oriented: Normal Eyes: Normal Ear: Normal Nose: Normal Throat: Normal Respiratory: Diminished Throughout and Wheezes Throughout Cardiovascular: Normal : Normal Auscultation: Bowel Sounds: Normal Palpation: Normal Tenderness: Normal Skin: Normal Musculoskeletal: Normal Psychiatric: Normal Mood Description: Calm and Appropriate Affect: Normal Speech Pattern: Clear and Appropriate Assessment/Plan (1) COPD exacerbation: Status: Acute (2) Fibromyalgia: Status: Chronic (3) Pneumonia: Qualifiers: Pneumonia type: due to unspecified organism Laterality: bilateral Lung location: unspecified part of lung Qualified Code(s): J18.9 - Pneumonia, unspecified organism Status: Acute Review H&P Reviewed: Yes Patient was examined?: Yes
[2022-12-23] MEDS: XANAX PO PRN ×2 (15:58→20:27)
[2022-12-23] MEDS ORDERED: DUONEB 0.5 MG/3 MG (3 mL) NEB ONE (19:56)
[2022-12-23] MEDS ORDERED: MORPHINE SULFATE INJ 2 MG INJ ONE (20:30)
[2022-12-23] MEDS: MORPHINE SULFATE INJ 2 MG INJ IVP PRN (20:35)
--- NOTE | 2022-12-23 20:45 | EKG ---
Test Reason : Tachycardia Blood Pressure : */* mmHG Vent. Rate : 163 BPM Atrial Rate : * BPM P-R Int : * ms QRS Dur : 82 ms QT Int : 254 ms P-R-T Axes : * 97 39 degrees QTc Int : 418 ms Supraventricular tachycardia Rightward axis Minimal voltage criteria for LVH, may be normal variant ( Hermelindo product ) Septal infarct (cited on or before 12-SEP-2022) Abnormal ECG When compared with ECG of 22-DEC-2022 12:22, Vent. rate has increased BY 61 BPM Non-specific change in ST segment in Lateral leads Nonspecific T wave abnormality no longer evident in Lateral leads Confirmed by Randy Manuel ([id number]) on 12/25/2022 7:47:29 AM Referred By: Confirmed By: Randy Manuel
[2022-12-24] MEDS: DUONEB 0.5 MG/3 MG (3 mL) NEB SCH ×4 (00:10→17:43)
[2022-12-24 00:23] LABS: ABG BASE EXCESS 4.4 mmol/L (-2.0-2.0)
[2022-12-24 00:24] LABS: ABG HCO3 31.1 mmol/L (22-26)
[2022-12-24] MEDS: XANAX PO PRN ×4 (00:56→18:57)
[2022-12-24 05:07] LABS: BASOPHILS % (AUTO) 0.1 % (0.2-1.0); HEMATOCRIT 32.1 % (36.0-47.0); HEMOGLOBIN 10.7 g/dL (12.0-16.0); LYMPHOCYTES # (AUTO) 0.2 X10^3/uL (1.3-2.9); LYMPHOCYTES % (AUTO) 2.5 % (21.0-51.0); MEAN CORPUSCULAR HEMOGLOBIN 31.2 pg (27.0-34.0); MEAN CORPUSCULAR HGB CONC 33.4 g/dL (33.0-35.0); MEAN CORPUSCULAR VOLUME 93.3 fL (80.0-100.0); MEAN PLATELET VOLUME 9.8 fL (7.4-11.0); MONOCYTES # (AUTO) 0.4 x10^3/uL (0.3-0.8); MONOCYTES % (AUTO) 3.7 % (0.0-13.0); NEUTROPHILS % (AUTO) 93.7 % (42.0-75.0); PLATELET COUNT 148 X10^3/uL (150.0-450.0); RED BLOOD COUNT 3.44 X10^6/uL (3.5-5.4); RED CELL DISTRIBUTION WIDTH 13.3 % (11.6-16.5); WHITE BLOOD COUNT 9.6 X10^3/uL (3.6-10.0)
[2022-12-24 05:21] LABS: ALANINE AMINOTRANSFERASE 69 Units/L (12-78); ALBUMIN 2.9 g/dL (3.4-5.0); ALKALINE PHOSPHATASE 77 Units/L (46-116); ASPARTATE AMINO TRANSFERASE 58 Units/L (15-37); BLOOD UREA NITROGEN 22 mg/dL (7-18); CALCIUM 8.1 mg/dL (8.5-10.1); CARBON DIOXIDE 30.8 mmol/L (21-32); CHLORIDE 105 mmol/L (98-107); COR NA(FOR HYPERGLY) 140 mmol/L (136-145); CREATININE 0.81 mg/dL (0.55-1.02); GLUCOSE 127 mg/dL (65-99); POTASSIUM 4.9 mmol/L (3.5-5.1); SODIUM 139 mmol/L (136-145); TOTAL PROTEIN 6.1 g/dL (6.4-8.2); eGFR NON BLACK RACES > 60 (>60)
[2022-12-24 05:34] LABS: PLATELET MORPHOLOGY COMMENT NORMAL (NORMAL)
[2022-12-24] MEDS ORDERED: ZOLOFT ONE (07:55)
[2022-12-24] MEDS ORDERED: NORVASC TAB 2.5 MG ONE (07:55)
[2022-12-24] MEDS: OXYBUTYNIN CHLORIDE ER PO SCH (08:01)
[2022-12-24] MEDS: ROCEPHIN VIAL 1 GRAM 1 G in NS 100 ML IV 100 ML IV SCH (08:01)
[2022-12-24] MEDS: SOLU-Medrol 40 MG VIAL IVP SCH (08:01)
[2022-12-24] MEDS: PriLOSEC PO SCH (08:01)
[2022-12-24] MEDS: ELIQUIS PO SCH ×2 (08:01→21:46)
[2022-12-24] MEDS: LIPITOR TAB 80 MG PO SCH (08:01)
[2022-12-24] MEDS: PLAQUENIL PO SCH (08:02)
[2022-12-24] MEDS: NORVASC TAB 2.5 MG PO SCH (08:02)
[2022-12-24] MEDS: PROTONIX TAB 40 MG PO SCH ×2 (08:02→21:46)
[2022-12-24] MEDS: MORPHINE SULFATE INJ 2 MG INJ IVP PRN ×3 (08:10→21:15)
[2022-12-24] MEDS: ZOLOFT PO SCH (08:13)
[2022-12-24] MEDS: HEMOCYTE-PLUS PO SCH (08:13)
[2022-12-24] MEDS: PULMICORT NEB TX 0.5 MG NEB SCH ×2 (08:33→20:06)
[2022-12-24] MEDS ORDERED: APRESOLINE INJ 20 MG VIAL ONE ×2 (18:20→20:22)
--- NOTE | 2022-12-24 18:24 | RAD ---
EXAM:CHEST, 1 VIEWHISTORY:PNEUMONIA;COMPARISON:December 22, 2022FINDINGS:Heart: The cardiomediastinal silhouette is normal in size.Lungs: Slight right lower lobe nonspecific airspace infiltrate.Pleural space: No conspicuous pneumothorax or effusion.Bones:The bony thorax appears age appropriate.IMPRESSION:1. Slight right lower lobe nonspecific airspace infiltrate suspected.THIS IS AN ELECTRONICALLY VERIFIED FINAL [id number]/24/2022 6:12 PM - Electronically signed by Doyle Johnson DO
[2022-12-24] MEDS: APRESOLINE INJ 20 MG VIAL IVP PRN ×2 (18:48→23:59)
[2022-12-24] MEDS ORDERED: LOPRESSOR INJ 5 MG AMP IVP ONE (20:18)
[2022-12-24] MEDS ORDERED: APRESOLINE INJ 20 MG VIAL IVP ONE (20:18)
[2022-12-24] MEDS ORDERED: LOPRESSOR INJ 5 MG AMP ONE (20:22)
[2022-12-24] MEDS: VALIUM INJ IVP PRN (21:18)
[2022-12-25] MEDS: XANAX PO PRN (00:42)
[2022-12-25] MEDS: SOLU-Medrol 40 MG VIAL IVP SCH ×3 (01:37→20:31)
[2022-12-25 04:50] LABS: BASOPHILS % (AUTO) 0.1 % (0.2-1.0); HEMATOCRIT 34.4 % (36.0-47.0); HEMOGLOBIN 11.5 g/dL (12.0-16.0); LYMPHOCYTES # (AUTO) 0.4 X10^3/uL (1.3-2.9); LYMPHOCYTES % (AUTO) 4.1 % (21.0-51.0); MEAN CORPUSCULAR HGB CONC 33.3 g/dL (33.0-35.0); MEAN CORPUSCULAR VOLUME 93.1 fL (80.0-100.0); MEAN PLATELET VOLUME 9.2 fL (7.4-11.0); MONOCYTES # (AUTO) 1.2 x10^3/uL (0.3-0.8); MONOCYTES % (AUTO) 11.2 % (0.0-13.0); NEUTROPHILS % (AUTO) 84.6 % (42.0-75.0); PLATELET COUNT 189 X10^3/uL (150.0-450.0); RED BLOOD COUNT 3.69 X10^6/uL (3.5-5.4); RED CELL DISTRIBUTION WIDTH 13.4 % (11.6-16.5); WHITE BLOOD COUNT 10.7 X10^3/uL (3.6-10.0)
[2022-12-25 05:01] LABS: ALANINE AMINOTRANSFERASE 57 Units/L (12-78); ALKALINE PHOSPHATASE 74 Units/L (46-116); ASPARTATE AMINO TRANSFERASE 47 Units/L (15-37); BLOOD UREA NITROGEN 24 mg/dL (7-18); CALCIUM 8.2 mg/dL (8.5-10.1); CHLORIDE 101 mmol/L (98-107); CREATININE 0.91 mg/dL (0.55-1.02); GLUCOSE 110 mg/dL (65-99); POTASSIUM 4.8 mmol/L (3.5-5.1); SODIUM 137 mmol/L (136-145); TOTAL PROTEIN 6.3 g/dL (6.4-8.2); eGFR NON BLACK RACES > 60 (>60)
[2022-12-25] MEDS: DUONEB 0.5 MG/3 MG (3 mL) NEB SCH ×4 (05:45→16:12)
[2022-12-25] MEDS: VALIUM INJ IVP PRN ×2 (06:05→13:12)
[2022-12-25] MEDS: APRESOLINE INJ 20 MG VIAL IVP PRN ×2 (06:09→10:37)
--- NOTE | 2022-12-25 06:19 | PCM.PROG ---
Progress Note Progress Note for Day of Date of Exam: 12/24/22 Subjective Subjective: Patient is a 77-year-old female past medical history of COPD (BL~3L) admitted for pneumonia and COPD exacerbation. This morning her breathing acutely declined and she needed to be placed on BiPAP support. Labs/imaging: WBC 9.6, hemoglobin 10.7, platelets 148, sodium 139, potassium 4.9, creatinine 0.81, glucose 127, ABG:pH 7.36, pCO2 55, pO2 86, HCO3 31, O2sat 96% on FiO2 32. Blood cultures pending, AIT swab pending, chest x-ray was obtained that revealed: 1.Slight right lower lobe nonspecific airspace infiltrate suspected. Patient is on BiPAP with FiO2 32%. She is also receiving IV Solu-Medrol 40 mg every 12h, IV Rocephin 1 g daily. Scheduled bronchodilators. Wean/titrate oxygen as indicated. Home medications have been resumed. Continue to closely monitor patient and follow-up labs/imaging in the morning. Time spent on clinical assessment, reviewing labs and imaging, decision making, and documentation greater than 45 minutes. Past Medical Family Social History Allergies: Allergies egg Allergy (Unknown, Verified 12/15/22 11:10) Influenza Virus Vaccines Allergy (Unknown, Verified 12/15/22 11:11) meperidine [From Demerol] Allergy (Verified 06/15/22 19:18) latex Adverse Reaction (Unknown, Verified 12/15/22 11:10) Review of Systems ROS changes noted: see HPI Vital Signs and I&O's Vital Signs: Vital Signs Temperature 99.2 F Temperature 99.8 F Pulse Rate 109 Pulse Rate 110 Pulse Rate 119 Pulse Rate 120 Pulse Rate 128 Pulse Rate 139 Pulse Rate 115 Pulse Rate 113 Respiratory Rate 25 Respiratory Rate 24 Respiratory Rate 25 Respiratory Rate 26 Respiratory Rate 25 Respiratory Rate 27 Respiratory Rate 26 Blood Pressure 178/80 Blood Pressure 172/78 Blood Pressure 163/85 Blood Pressure 145/82 Blood Pressure 142/67 Blood Pressure 177/75 Blood Pressure 170/77 O2 Sat by Pulse Oximetry 100 O2 Sat by Pulse Oximetry 100 O2 Sat by Pulse Oximetry 100 O2 Sat by Pulse Oximetry 99 O2 Sat by Pulse Oximetry 99 O2 Sat by Pulse Oximetry 98 O2 Sat by Pulse Oximetry 96 O2 Sat by Pulse Oximetry 99 Intake and Output: Intake & Output 10/27/23 12/23/22 12/24/22 12/25/22 23:59 23:59 23:59 23:59 Intake Total 260 / 260 1392 / 1392 340 / 340 Output Total 260 / 260 Balance 260 / 260 1132 / 1132 340 / 340 Physical Exam Oriented: Normal Eyes: Normal Ear: Normal Nose: Normal Throat: Normal Cardiovascular: Normal : Normal Auscultation: Bowel Sounds: Normal Tenderness: Normal Skin: Normal Musculoskeletal: Normal Psychiatric: Normal Mood Description: Calm and Appropriate Affect: Normal Speech Pattern: Clear Laboratory and Diagnostics 12/25/22 04:20 12/25/22 04:20 Labs: 12/22/22 16:34 Blood Blood Culture - Preliminary 12/22/22 16:29 Blood Blood Culture - Preliminary Laboratory WBC 10.7 X10^3/uL (3.6-10.0) H 12/25/22 04:20 RBC 3.69 X10^6/uL (3.5-5.4) 12/25/22 04:20 Hgb 11.5 g/dL (12.0-16.0) L 12/25/22 04:20 Hct 34.4 % (36.0-47.0) L 12/25/22 04:20 MCV 93.1 fL (80.0-100.0) 12/25/22 04:20 MCH 31.0 pg (27.0-34.0) 12/25/22 04:20 MCHC 33.3 g/dL (33.0-35.0) 12/25/22 04:20 RDW 13.4 % (11.6-16.5) 12/25/22 04:20 Plt Count 189 X10^3/uL (150.0-450.0) 12/25/22 04:20 Plt Count Comment Decreased (ADEQUATE) A 12/24/22 04:14 MPV 9.2 fL (7.4-11.0) 12/25/22 04:20 Neut % (Auto) 84.6 % (42.0-75.0) H 12/25/22 04:20 Lymph % (Auto) 4.1 % (21.0-51.0) L 12/25/22 04:20 Waller % (Auto) 11.2 % (0.0-13.0) 12/25/22 04:20 Eos % (Auto) 0.0 % (0.9-2.9) L 12/25/22 04:20 Baso % (Auto) 0.1 % (0.2-1.0) L 12/25/22 04:20 Neut # (Auto) 9.0 x10^3/uL (2.2-4.8) H 12/25/22 04:20 Lymph # (Auto) 0.4 X10^3/uL (1.3-2.9) L 12/25/22 04:20 Waller # (Auto) 1.2 x10^3/uL (0.3-0.8) H 12/25/22 04:20 Eos # (Auto) 0.0 x10^3/uL (0.0-0.2) 12/25/22 04:20 Baso # (Auto) 0.0 X10^3/uL (0.0-0.1) 12/25/22 04:20 Absolute Nucleated RBC 0.0 /100WBC 12/25/22 04:20 Total Counted 100 12/24/22 04:14 Neutrophils % (Manual) 95 % (39-76) H 12/24/22 04:14 Lymphocytes % (Manual) 3 % (13-43) L 12/24/22 04:14 Monocytes % (Manual) 2 % (4-9) L 12/24/22 04:14 Plt Morphology Comment Normal (NORMAL) 12/24/22 04:14 RBC Morphology Normal (NORMAL) 12/24/22 04:14 D-Dimer 0.58 ug/ml (0.0-0.57) H 12/22/22 12:04 Sample Site Rb 12/24/22 00:06 ABG pH 7.360 (7.35-7.45) 12/24/22 00:06 ABG pCO2 55.0 mmHg (35.0-45.0) H* 12/24/22 00:06 ABG pO2 86.0 mmHg (80.0-100.0) 12/24/22 00:06 ABG HCO3 31.1 mmol/L (22-26) H* 12/24/22 00:06 ABG O2 Saturation 96.0 % (90-100) 12/24/22 00:06 ABG Base Excess 4.4 mmol/L (-2.0-2.0) H 12/24/22 00:06 Brandon Test Na 12/24/22 00:06 A-a Gradient 73.0 mmHg 12/24/22 00:06 FiO2 32.0 12/24/22 00:06 Blood Gas Comments [facility] sw 12/24/22 00:06 Sodium 137 mmol/L (136-145) 12/25/22 04:20 Corrected Sodium TNP 12/25/22 04:20 Potassium 4.8 mmol/L (3.5-5.1) 12/25/22 04:20 Chloride 101 mmol/L (98-107) 12/25/22 04:20 Carbon Dioxide 35.0 mmol/L (21-32) H 12/25/22 04:20 BUN 24 mg/dL (7-18) H 12/25/22 04:20 Creatinine 0.91 mg/dL (0.55-1.02) 12/25/22 04:20 Est GFR (MDRD) Af Amer > 60 (>60) 12/25/22 04:20 Est GFR (MDRD) Non-Af > 60 (>60) 12/25/22 04:20 Glucose 110 mg/dL (65-99) H 12/25/22 04:20 Lactic Acid 0.6 mmol/L (0.4-2.0) 12/22/22 16:29 Calcium 8.2 mg/dL (8.5-10.1) L 12/25/22 04:20 Corrected Calcium 9.0 mg/dL (8.5-10.1) 12/25/22 04:20 Magnesium 2.0 mg/dL (2.0-2.9) 12/24/22 04:14 Total Bilirubin 0.30 mg/dL (0.2-1.0) 12/25/22 04:20 AST 47 Units/L (15-37) H 12/25/22 04:20 ALT 57 Units/L (12-78) 12/25/22 04:20 Alkaline Phosphatase 74 Units/L (46-116) 12/25/22 04:20 Creatine Kinase 147 Units/L (26-192) 12/22/22 12:04 Troponin I High Sens 123.8 ng/L (4.0-60.0) H* 12/23/22 19:45 B-Natriuretic Peptide 116 pg/mL (0-79) H 12/22/22 12:04 Total Protein 6.3 g/dL (6.4-8.2) L 12/25/22 04:20 Albumin 3.0 g/dL (3.4-5.0) L 12/25/22 04:20 Globulin 3.3 g/dL (2.5-4.5) 12/25/22 04:20 Albumin/Globulin Ratio 0.9 Ratio (1.1-2.1) L 12/25/22 04:20 Plan (1) Acute respiratory failure: Status: Acute Narrative Support Text: BiPAP support (2) COPD exacerbation: Status: Acute (3) Fibromyalgia: Status: Chronic (4) Pneumonia: Status: Acute Qualifiers: Pneumonia type: due to unspecified organism Laterality: bilateral Lung location: unspecified part of lung Qualified Code(s): J18.9 - Pneumonia, unspecified organism
[2022-12-25] MEDS: MORPHINE SULFATE INJ 2 MG INJ IVP PRN ×3 (06:33→22:29)
--- NOTE | 2022-12-25 07:29 | RAD ---
EXAM:CHEST, 1 VIEWHISTORY:COUGH, SOB; PT HAS ON A BIPAP MASK ONCOMPARISON:12/24/2022.TECHNIQUE:AP view of the chestFINDINGS:There is similar prominence of bilateral angus. Lungs hyperexpanded. Similar-appearing hazy and interstitial pulmonary opacities in the mid to lower lungs. There is blunting of the costophrenic sulci. No pneumothorax.IMPRESSION:No significant change compared to prior radiograph. COPD with bilateral hazy and interstitial pulmonary opacities in the mid to lower lungs. This could represent fibrosis or pneumonia. Blunted costophrenic sulci can be seen with small pleural effusions or pleuroparenchymal scarring. If there is clinical need to evaluate for pulmonary nodules, CT chest is recommended.THIS IS AN ELECTRONICALLY VERIFIED FINAL [id number]/25/2022 7:26 AM - Electronically signed by Barry Sánchez MD
--- NOTE | 2022-12-25 07:33 | RAD ---
EXAM:CHEST, 1 VIEWHISTORY:PNEUMONIA FOLLOW UP, RLL PNEUMONIA; HTN, COPD, ASTHMA SX: HYST, TONSILSCOMPARISON:12/24/2022.TECHNIQUE:A P view of the chestFINDINGS:The cardiac and mediastinal contours are normal in size. Hyperexpanded. There are bilateral interstitial opacities worst in the mid to lower lungs. Blunted costophrenic sulci. No pneumothorax.IMPRESSION:COPD. Bilateral interstitial opacities may represent chronic interstitial disease but atypical pneumonia can have a similar appearance. Blunted costophrenic sulci can be seen with small pleural effusions or pleuroparenchymal scarring. No significant change compared to prior radiograph. If there is clinical need to evaluate for pulmonary nodules, CT chest is recommended.THIS IS AN ELECTRONICALLY VERIFIED FINAL [id number]/25/2022 7:29 AM - Electronically signed by Barry Sánchez MD
[2022-12-25] MEDS: PULMICORT NEB TX 0.5 MG NEB SCH ×2 (09:07→20:40)
[2022-12-25 09:16] LABS: ABG BASE EXCESS 5.9 mmol/L (-2.0-2.0)
[2022-12-25] MEDS: ROCEPHIN VIAL 1 GRAM 1 G in NS 100 ML IV 100 ML IV SCH (09:35)
[2022-12-25] MEDS: HEMOCYTE-PLUS PO SCH (09:46)
[2022-12-25] MEDS: NORVASC TAB 2.5 MG PO SCH (09:46)
[2022-12-25] MEDS: ELIQUIS PO SCH ×2 (09:46→20:31)
[2022-12-25] MEDS: LIPITOR TAB 80 MG PO SCH (09:46)
[2022-12-25] MEDS: OXYBUTYNIN CHLORIDE ER PO SCH (09:47)
[2022-12-25] MEDS: ZOLOFT PO SCH (09:47)
[2022-12-25] MEDS: PLAQUENIL PO SCH (09:47)
[2022-12-25] MEDS: PROTONIX INJ 40 MG VIAL IVP SCH ×2 (09:47→20:31)
[2022-12-26] MEDS: DUONEB 0.5 MG/3 MG (3 mL) NEB SCH ×2 (00:35→06:03)
[2022-12-26] MEDS: MORPHINE SULFATE INJ 2 MG INJ IVP PRN ×2 (06:51→10:50)
[2022-12-26] MEDS: VALIUM INJ IVP PRN (07:41)
[2022-12-26 08:32] VITALS: BMI 16.9
[2022-12-26] MEDS: ZOLOFT PO SCH (09:50)
[2022-12-26] MEDS: ELIQUIS PO SCH (09:50)
[2022-12-26] MEDS: ROCEPHIN VIAL 1 GRAM 1 G in NS 100 ML IV 100 ML IV SCH (09:51)
[2022-12-26] MEDS: NORVASC TAB 2.5 MG PO SCH (09:51)
[2022-12-26] MEDS: HEMOCYTE-PLUS PO SCH (09:51)
[2022-12-26] MEDS: PLAQUENIL PO SCH (09:51)
[2022-12-26] MEDS: OXYBUTYNIN CHLORIDE ER PO SCH (09:51)
[2022-12-26] MEDS: SOLU-Medrol 40 MG VIAL IVP SCH (09:51)
[2022-12-26] MEDS: PROTONIX INJ 40 MG VIAL IVP SCH (09:51)
[2022-12-26] MEDS: LIPITOR TAB 80 MG PO SCH (09:52)
[2022-12-26 12:22] VITALS: BP 139/75; PULSE 96; RESP 18; TEMP 98.4; O2SAT 95
== END 2022-12-26 10:29 | disposition hospice, inpatient (51) | DRG 190 ==
LOC: ER 11:41 → ICU 11:41 → OBSVTOIN 18:46 → ICU 19:25
PROVIDERS: ADMIT Family Medicine; ATTEND Internal Medicine
DX: Z99.81 Dependence on supplemental oxygen; M79.7 Fibromyalgia; Z66 Do not resuscitate; R77.8 Other specified abnormalities of plasma proteins; K21.9 Gastro-esophageal reflux disease without esophagitis; I47.19 Other supraventricular tachycardia; J12.1 Respiratory syncytial virus pneumonia; R06.02 Shortness of breath; J44.1 Chronic obstructive pulmonary disease with (acute) exacerbation; J96.00 Acute respiratory failure, unspecified whether with hypoxia or hypercapnia; I10 Essential (primary) hypertension

== ENCOUNTER 2022-12-26 10:30 | Inpatient (IN) ==
[2022-12-26] MEDS ORDERED: VERSED ONE (13:27)
[2022-12-26] MEDS ORDERED: MORPHINE SULFATE INJ 2 MG INJ ONE (13:27)
[2022-12-26] MEDS: MORPHINE SULFATE INJ 2 MG INJ IVP SCH ×2 (13:45→15:29)
[2022-12-26] MEDS: VERSED IVP SCH ×2 (13:45→15:30)
[2022-12-26 15:13] VITALS: BMI 14.6
[2022-12-26 15:25] VITALS: TEMP 98.6
[2022-12-26] MEDS ORDERED: MORPHINE SULFATE PCA 30 MG IVP PRN (16:47)
[2022-12-26] MEDS ORDERED: VERSED 100 MG in NS 100 ML IV 80 ML IV PRN (16:51)
[2022-12-27 02:31] VITALS: BP 184/85; PULSE 137; RESP 22; O2SAT 57
== END 2022-12-27 03:22 | disposition expired | DRG 189 ==
LOC: ICU 10:30
PROVIDERS: ADMIT Internal Medicine; ATTEND Internal Medicine
DX: J18.8 Other pneumonia, unspecified organism; R53.1 Weakness; Z51.5 Encounter for palliative care; J96.20 Acute and chronic respiratory failure, unspecified whether with hypoxia or hypercapnia; R06.02 Shortness of breath; J44.1 Chronic obstructive pulmonary disease with (acute) exacerbation